=== PATIENT | female | born 1950 | race Caucasian/White ===

== ENCOUNTER → 2017-07-17 | Outpatient (CLI) | payer OTHER ==
[~2017-07-17] MED LIST: ACARBOSE25 MG PO; ADVAIR 500/501 EA INH; ATORVASTATIN CA20 M1 PO; BREO ELLIPTA 21 EACH IH; CARVEDILOL6.25 MG PO; CITALOPRAM HYDR40 MG PO; COMBIVENT RESPIM4 GM INH; DOXYCYCLINE100 M3 PO; DUONEB 3 MG/3 ML3 M1 INH; HYDROCODONE BIT1 T11 PO; HYDROXYZINE PAM50 MG PO; Meclizine25 MG PO; NAPROSYN500 MG PO; OMEPRAZOLE D/R20 MG PO; OXYGEN NAS; TRAZODONE50 MG PO; VIBRAMYCIN100 MG PO
== END | disposition home or self-care (01) ==
LOC: US 15:58
DX: N85.8 Other specified noninflammatory disorders of uterus (principal)

== ENCOUNTER → 2017-08-23 | Outpatient (CLI) | payer OTHER | LOC: US 10:30 | DX: M48.061 Spinal stenosis, lumbar region without neurogenic claudication (principal); M25.472 Effusion, left ankle; M25.471 Effusion, right ankle; M79.89 Other specified soft tissue disorders; G57.73 Causalgia of bilateral lower limbs; I73.9 Peripheral vascular disease, unspecified; Z98.1 Arthrodesis status ==

== ENCOUNTER → 2017-09-04 | Outpatient (CLI) | payer OTHER, MEDICAID | END | disposition home or self-care (01) | LOC: MAMMO 08-29 08:00 | DX: Z12.31 Encounter for screening mammogram for malignant neoplasm of breast (principal) ==

== ENCOUNTER 2018-08-10 19:18 | Emergency (ER) | payer OTHER, MEDICAID ==
[~2018-08-10] VITALS: Ht 170.1 cm; Wt 68.9 kg
--- NOTE | ~2018-08-10 | EKG ---
[place], [place] ELECTROCARDIOGRAM REPORT NAME: SHERYL GUEVARA UNIT #: [id number] ROOM: DOCTOR: EPIPHANY DRAFT REPORT BIRTHDATE: [birth year] [facility] Test Date: 2018-08-10 Test Time: 19:44:27 Pat Name: SHERYL GUEVARA Department: Room: Gender: F Labor Custodian: Emily Ferrell : 1950 Requested By: NATALEE KNIGHT Order Number: [id number] Reading MD: Allegra Hernandez MD Measurements Intervals [place] Rate: 71 P: 76 TN: 117 QRS: 83 QRSD: 97 T: 36 QT: 391 QTc: 425 Interpretive Statements Sinus rhythm Borderline short TN interval Borderline right axis deviation Minimal ST elevation, anterior leads Electronically Signed On 08-12-2018 14:19:14 PST by Allegra Hernandez MD CM:EKGRPT:ELECTROCARDIOGRAM REPORT [id number] NATALEE KNIGHT MD EPIPHANY DRAFT REPORT NATALEE KNIGHT MD
[~2018-08-10 19:18] MED LIST changes: +MIRALAX17 GM PO
[2018-08-10 19:49] LABS: BASO # 0.1 10*3/uL (0.0-0.1); HEMATOCRIT 44.9 % (37.0-47.0); HEMOGLOBIN 15.1 g/dl (12.0-16.0); LYMPH % 28.5 % (27.0-41.0); MEAN CELL VOLUME 96.4 fl (81.0-99.0); MEAN CORPUSCULAR HGB 32.4 pg (27.0-31.0); MEAN CORPUSCULAR HGB CONC 33.6 g/dl (33.0-37.0); MEAN PLATELET VOLUME 8.6 fl (9.6-12.3); MONO # 0.7 10*3/uL (0.1-1.0); MONO % 9.8 % (3.0-9.0); NEUT # 3.2 10*3/uL (2.3-7.9); NEUT % 46.6 % (47.0-73.0); PLATELET COUNT AUTOMATED 291 10*3/uL (130-400); RED BLOOD COUNT 4.66 10*6/uL (4.10-5.10); WHITE BLOOD COUNT 6.9 10*3/uL (4.8-10.8)
[2018-08-10 19:59] LABS: ACT PARTIAL THROMBO TIME 25.7 SECONDS (20.8-31.5); INTERNATIONAL NORM RATIO 0.9 (2.0-3.5)
[2018-08-10 20:07] LABS: ALBUMIN 3.2 gm/dl (3.1-4.5); ALKALINE PHOSPHATASE 60 U/L (45-117); BUN 20 mg/dl (7-24); CHLORIDE 102 mmol/L (98-107); CREATININE 0.81 mg/dL (0.55-1.02); POTASSIUM 4.1 mmol/L (3.5-5.1); SGOT/AST 18 IU/L (3-35); SGPT/ALT 19 U/L (12-78); SODIUM 139 mmol/L (136-145); TOTAL PROTEIN 7.1 gm/dL (6.4-8.2); TROPONIN I 0.019 ng/ml (<0.045)
[2018-08-10] MEDS ORDERED: PREDNISONE10 MG PO (20:15)
[2018-08-10] MEDS ORDERED: LEVOFLOXACIN500 MG PO (20:15)
[2018-08-10] MEDS ORDERED: ASPIRIN CHEWABL81 MG PO (20:22)
[2018-08-10] MEDS ORDERED: DULOXETINE HCL60 MG PO (20:23)
[2018-08-10] MEDS ORDERED: SPIRIVA RESPIMAT4 GM INH (20:23)
[2018-08-10 20:58] VITALS: BP 141/57
== END 2018-08-10 21:13 | disposition left against medical advice (07) ==
LOC: ED 19:18
PROVIDERS: Emergency Medicine Emergency Medical Services
DX: J44.1 Chronic obstructive pulmonary disease with (acute) exacerbation (principal); I10 Essential (primary) hypertension; F17.200 Nicotine dependence, unspecified, uncomplicated; Z88.0 Allergy status to penicillin; Z88.1 Allergy status to other antibiotic agents; Z88.2 Allergy status to sulfonamides; Z88.8 Allergy status to other drugs, medicaments and biological substances; Z91.041 Radiographic dye allergy status; Z79.899 Other long term (current) drug therapy

== ENCOUNTER 2018-09-17 | Inpatient (IN) | payer OTHER ==
[~2018-09-17] MED LIST changes: +ASPIRIN CHEWABL81 MG PO; +DULOXETINE HCL60 MG PO; +LEVOFLOXACIN500 MG PO; +PREDNISONE10 MG PO; +SPIRIVA RESPIMAT4 GM INH
--- NOTE | ~2018-09-17 | EKG ---
[place], [place] ELECTROCARDIOGRAM REPORT NAME: SHERYL GUEVARA UNIT #: [id number] ROOM: 406 DOCTOR: JORGE LUIS DRAFT REPORT BIRTHDATE: [birth year] [facility] Test Date: 2018-09-17 Test Time: 17:30:30 Pat Name: SHERYL GUEVARA Department: Room: 406 Gender: F Real Estate Listing Consultant: SABRINA : 1950 Requested By: NANY PICHARDO Order Number: [id number] Reading MD: Nito Duran MD Measurements Intervals [place] Rate: 63 P: 78 MI: 123 QRS: 82 QRSD: 90 T: 13 QT: 409 QTc: 419 Interpretive Statements Sinus rhythm Borderline right axis deviation Compared to ECG 08/10/2018 19:44:27 ST (T wave) deviation no longer present Electronically Signed On 09-19-2018 8:26:57 PST by Nito Duran MD CM:EKGRPT:ELECTROCARDIOGRAM REPORT [id number] NANY KEANE DRAFT REPORT NANY PICHARDO DO
--- NOTE | ~2018-09-17 | EKG ---
[place], [place] ELECTROCARDIOGRAM REPORT NAME: SHERYL GUEVARA UNIT #: [id number] ROOM: 406 DOCTOR: JORGE LUIS DRAFT REPORT BIRTHDATE: [birth year] [facility] Test Date: 2018-09-17 Test Time: 20:24:14 Pat Name: SHERYL GUEVARA Department: Room: 406 Gender: F Antisqueak Worker: SABRINA : 1950 Requested By: NANY PICHARDO Order Number: [id number] Reading MD: Nito Duran MD Measurements Intervals [place] Rate: 79 P: 80 AK: 114 QRS: 82 QRSD: 93 T: -70 QT: 384 QTc: 441 Interpretive Statements Sinus arrhythmia Multiple premature complexes, vent \T\ supraven Borderline short [place] interval Borderline right axis deviation Borderline repolarization abnormality Compared to ECG 08/10/2018 19:44:27 Sinus rhythm no longer present ST (T wave) deviation no longer present Electronically Signed On 09-19-2018 8:27:17 PST by Nito Duran MD CM:EKGRPT:ELECTROCARDIOGRAM REPORT 23 NANY KEANE DRAFT REPORT NANY PICHARDO DO
--- NOTE | ~2018-09-17 | EKG ---
[place], [place] ELECTROCARDIOGRAM REPORT NAME: SHERYL GUEVARA UNIT #: [id number] ROOM: 406 DOCTOR: JORGE LUIS DRAFT REPORT BIRTHDATE: [birth year] [facility] Test Date: 2018-09-17 Test Time: 14:28:20 Pat Name: SHERYL GUEVARA Department: Room: 406 Gender: F Office Administration Instructor: SABRINA : 1950 Requested By: NANY PICHARDO Order Number: [id number] Reading MD: Nito Duran MD Measurements Intervals [place] Rate: 67 P: 77 MT: 113 QRS: 81 QRSD: 91 T: 8 QT: 389 QTc: 411 Interpretive Statements Sinus rhythm Borderline short MT interval Borderline right axis deviation Minimal ST depression, inferior leads Compared to ECG 08/10/2018 19:44:27 No significant changes Electronically Signed On 09-19-2018 8:26:38 PST by Nito Duran MD CM:EKGRPT:ELECTROCARDIOGRAM REPORT [id number] NANY KEANE DRAFT REPORT NANY PICHARDO DO
[2018-09-17 14:27] VITALS: BP 164/77
[2018-09-17 14:44] LABS: BASO # 0.1 10*3/uL (0.0-0.1); BASO % 0.5 % (0.0-1.0); EOS # 0.2 10*3/uL (0.0-0.4); EOS % 2.3 % (1.0-4.0); HEMATOCRIT 47.7 % (37.0-47.0); HEMOGLOBIN 16.5 g/dl (12.0-16.0); LYMPH # 2.2 10*3/uL (1.3-4.4); LYMPH % 23.4 % (27.0-41.0); MEAN CORPUSCULAR HGB 33.2 pg (27.0-31.0); MEAN CORPUSCULAR HGB CONC 34.6 g/dl (33.0-37.0); MEAN PLATELET VOLUME 8.8 fl (9.6-12.3); MONO % 10.2 % (3.0-9.0); NEUT # 5.9 10*3/uL (2.3-7.9); NEUT % 63.4 % (47.0-73.0); PLATELET COUNT AUTOMATED 370 10*3/uL (130-400); RED BLOOD COUNT 4.97 10*6/uL (4.10-5.10); RED CELL DISTRI WIDTH 13.4 % (0-14.5); WHITE BLOOD COUNT 9.3 10*3/uL (4.8-10.8)
[2018-09-17 14:54] LABS: ACT PARTIAL THROMBO TIME 23.5 SECONDS (20.8-31.5); INTERNATIONAL NORM RATIO 0.9 (2.0-3.5)
[2018-09-17 15:00] LABS: ALBUMIN 3.6 gm/dl (3.1-4.5); ALKALINE PHOSPHATASE 64 U/L (45-117); BUN 17 mg/dl (7-24); CHLORIDE 100 mmol/L (98-107); SGOT/AST 15 IU/L (3-35); SGPT/ALT 22 U/L (12-78); SODIUM 138 mmol/L (136-145); TOTAL PROTEIN 7.6 gm/dL (6.4-8.2)
[2018-09-17 15:01] LABS: TROPONIN I 0.019 ng/ml (<0.045)
[2018-09-17 15:20] VITALS: BP 143/70
[2018-09-17 17:35] VITALS: BP 150/77
[2018-09-17 17:40] VITALS: BP 142/66
--- NOTE | 2018-09-17 17:40 | NUR ---
A 68, admitted to 4E, under the services of KAI Mcdonnell DO with a diagnosis of CHEST PAIN R/O MO. Chief complaint is CHEST PAIN. Patient arrived via ambulatory from ER. Monitor applied. Initial assessment completed. Vital signs taken and recorded. KAI MCDONNELL DO notified of admission to the unit. Orders received. See assessment for past medical history, medications and allergies. Patient and/or family oriented to unit. [facility] visitation policy reviewed. Clothing/patient valuable form completed. SHAMAR MARTINEZ
--- NOTE | 2018-09-17 18:20 | NUR ---
MED REC UP TO DATE PER CLAIM HISTORY AND PATIENT. CALLED TO DR SPENCE.
[2018-09-17 20:00] VITALS: BP 127/52
[2018-09-17] MEDS ORDERED: DULOXETINE HCL20 MG PO (23:54)
[2018-09-17] MEDS ORDERED: PROVENTIL HFA6.7 GM INH (23:55)
[2018-09-17] MEDS ORDERED: ACARBOSE25 MG PO (23:58)
[2018-09-18] VITALS: BP 119/44
[2018-09-18] MEDS ORDERED: Ipratropium Brom3 ML INH
[2018-09-18] MEDS ORDERED: NITROSTAT0.3 M1 SL
[2018-09-18] MEDS ORDERED: PRAVASTATIN SOD40 MG PO (00:01)
[2018-09-18] MEDS ORDERED: VENTOLIN 02.5 MG/3 M INH (00:02)
--- NOTE | 2018-09-18 00:09 | NUR ---
PATIENT REQUESTING HER HOME NIGHT TIME MEDS. REQUESTING CYMBALTA, COREG, ASPIRIN, TRAZODONE, & PRAVASTATIN. HOME MED REC UPDATED PER PATIENT RECALL AND MEDICATION CLAIMS HISTORY. NOTIFIED.
[2018-09-18 07:47] LABS: BASO % 0.1 % (0.0-1.0); EOS % 0.1 % (1.0-4.0); HEMATOCRIT 43.8 % (37.0-47.0); HEMOGLOBIN 14.8 g/dl (12.0-16.0); LYMPH % 12.5 % (27.0-41.0); MEAN CELL VOLUME 96.5 fl (81.0-99.0); MEAN CORPUSCULAR HGB 32.6 pg (27.0-31.0); MEAN CORPUSCULAR HGB CONC 33.8 g/dl (33.0-37.0); MEAN PLATELET VOLUME 9.1 fl (9.6-12.3); MONO # 0.4 10*3/uL (0.1-1.0); MONO % 5.4 % (3.0-9.0); NEUT # 6.3 10*3/uL (2.3-7.9); NEUT % 81.5 % (47.0-73.0); PLATELET COUNT AUTOMATED 313 10*3/uL (130-400); RED BLOOD COUNT 4.54 10*6/uL (4.10-5.10); RED CELL DISTRI WIDTH 13.2 % (0-14.5); WHITE BLOOD COUNT 7.8 10*3/uL (4.8-10.8)
[2018-09-18 08:00] VITALS: BP 118/68
[2018-09-18 08:08] LABS: ALBUMIN 2.8 gm/dl (3.1-4.5); ALKALINE PHOSPHATASE 52 U/L (45-117); BUN 18 mg/dl (7-24); CHLORIDE 101 mmol/L (98-107); CHOLESTEROL 200 mg/dL (<200); CREATININE 0.73 mg/dL (0.55-1.02); PHOSPHOROUS 3.5 mg/dL (2.5-4.9); POTASSIUM 4.1 mmol/L (3.5-5.1); SGOT/AST 12 IU/L (3-35); SGPT/ALT 19 U/L (12-78); SODIUM 137 mmol/L (136-145); TOTAL PROTEIN 6.5 gm/dL (6.4-8.2); TRIGLYCERIDES 62 mg/dl (<150); VLDL CHOLESTEROL 12 mg/dL (6-40)
[2018-09-18 08:12] LABS: HDL CHOLESTEROL 78 mg/dl (40-60); LDL CHOLESTEROL 110 mg/dL (9-159); THYROID STIM HORMONE (HS) 0.547 uIU/ml (0.358-4.75)
[2018-09-18 09:21] LABS: VITAMIN D, 25-HYDROXY 19.8 ng/mL (30-100)
--- NOTE | 2018-09-18 09:24 | NUR ---
DR VILLALPANDO INFORMED THAT PT IS REQUESTING HOME MEDS TO BE RESUMED.
--- NOTE | 2018-09-18 11:50 | NUR ---
PT REQUESTING NICOTINE PATCH, DR VILLALPANDO INFORMED.
[2018-09-18 12:00] VITALS: BP 127/69
--- NOTE | 2018-09-18 12:11 | NUR ---
Register In Chancery in to talk to patient. Patient states lives at home with . There are few steps in the home. Physician: jeanne garcia [facility] Home health services: none Patient's level of ADLs: MINIMAL ASSIST Patient has working utilities: all working DME: has home oxygen she wears at night from [facility] Follow-up physician's appointment after d/c: will be made by hospitalist nurse director upon discharge Does patient want to access PORTAL?: no Discharge plan discussed with patient, patient lives at home with her , she states she gets around but is slow, she is independent in adls. patient states she has home oxygen that she wears at and has one portable tank in case the electric would go out, patient states she feels like she needs oxygen 24 hours a day and is not ablel to go out due to not being able to breathe, educated patient that case management will let hospitalist nurse director know that patient may need checked for home oxygen 24 hours a day. case management will follow.. CASSANDRA LONGORIA
[2018-09-18 16:00] VITALS: BP 122/60
--- NOTE | 2018-09-18 18:00 | NUR ---
PT RESTING IN BED, NO DISTRESS NOTED. O2 INTACT AT 2L NC AT THIS TIME, FAMILY AT BEDSIDE. CALL LIGHT WITHIN REACH.
[2018-09-18 20:00] VITALS: BP 128/69
--- NOTE | 2018-09-18 23:30 | NUR ---
ASSUMED CARE OF PT AT THIS TIME. PT IS AWAKE IN BED. DENIES ANY PAIN, SOB, OR GENERALIZED DISCOMFORT. WILL MONITOR. CALL LIGHT LEFT IN REACH.
[2018-09-19] VITALS: BP 134/57
[2018-09-19 07:00] LABS: BASO % 0.1 % (0.0-1.0); EOS % 0.1 % (1.0-4.0); HEMATOCRIT 42.8 % (37.0-47.0); HEMOGLOBIN 14.2 g/dl (12.0-16.0); LYMPH # 1.2 10*3/uL (1.3-4.4); MEAN CELL VOLUME 96.6 fl (81.0-99.0); MEAN CORPUSCULAR HGB 32.1 pg (27.0-31.0); MEAN CORPUSCULAR HGB CONC 33.2 g/dl (33.0-37.0); MEAN PLATELET VOLUME 9.3 fl (9.6-12.3); MONO # 0.7 10*3/uL (0.1-1.0); MONO % 5.7 % (3.0-9.0); NEUT # 9.4 10*3/uL (2.3-7.9); NEUT % 82.7 % (47.0-73.0); PLATELET COUNT AUTOMATED 290 10*3/uL (130-400); RED BLOOD COUNT 4.43 10*6/uL (4.10-5.10); RED CELL DISTRI WIDTH 13.3 % (0-14.5); WHITE BLOOD COUNT 11.3 10*3/uL (4.8-10.8)
[2018-09-19 07:22] LABS: CHLORIDE 103 mmol/L (98-107); SODIUM 138 mmol/L (136-145)
[2018-09-19 07:26] LABS: BUN 20 mg/dl (7-24); CREATININE 0.78 mg/dL (0.55-1.02)
[2018-09-19 08:00] VITALS: BP 130/70
--- NOTE | 2018-09-19 08:41 | NUR ---
PT REQUESTED AND RECEIVED PO DULCOLAX PER PRN ORDER FOR C/O CONSTIPATION. ABD SOFT, NON-DISTENDED. WILL CONTINUE TO MONITOR. CALL LIGHT WITHIN REACH. VSS.
--- NOTE | 2018-09-19 09:00 | NUR ---
case management visits with patient, patient states she will be going home and denies any home needs
[2018-09-19] MEDS ORDERED: MUCINEX ER600 MG PO (09:57)
[2018-09-19] MEDS ORDERED: PREDNISONE10 MG PO (09:57)
[2018-09-19] MEDS ORDERED: LEVAQUIN750 M1 PO (09:57)
--- NOTE | 2018-09-19 11:25 | NUR ---
PT ASSESSED FOR HOME O2 FOLLOWS: BP 137/67 HR 80 SAT 92% AT REST WITH 2L/M NC APPLIED SAT 88% AT REST, RA SAT 92% AT REST, WITH 2L/M NC REAPPLIED SAT 90-91% WITH 2L/M NC APPLIED DURING AMBULATION SAT 93% AT REST WITH 2L/M NC APPLIED DURING RECOVERY. BP 145/62 HR 104 POST AMBULATION. PT TOLERATING WALK WELL. PT WALKED LENGTH OF HALLWAY. PT STATES SHE USED 3L/M HS. [facility]. , RN, AND DASHA NOTIFIED.
[2018-09-19 12:00] VITALS: BP 137/67
--- NOTE | 2018-09-19 13:48 | NUR ---
Discharge instructions reviewed with patient/family. Patient receptive and verbalizes understanding. Follow-up care arranged. Written instructions given to patient/family. MARIVEL SPARKS.
[2019-02-12] MEDS ORDERED: PREDNISONE50 MG PO (12:44)
[2019-02-12] MEDS ORDERED: VIBRAMYCIN100 MG PO (12:44)
[2019-04-19] MEDS ORDERED: PREDNISONE50 MG PO (21:55)
[2019-04-19] MEDS ORDERED: CLARITIN10 MG PO (21:55)
[2019-04-19] MEDS ORDERED: MUCINEX1200 M1 PO (21:55)
[2019-04-19] MEDS ORDERED: DOXYCYCLINE100 M3 PO (21:55)
== END 2018-09-19 13:48 | disposition home or self-care (01) | DRG 190 ==
PROVIDERS: Emergency Medicine; Family Medicine; Student in an Organized Health Care Education/Training Program; ADMIT Internal Medicine
DX: J44.1 Chronic obstructive pulmonary disease with (acute) exacerbation (principal); J18.9 Pneumonia, unspecified organism; I10 Essential (primary) hypertension; E78.00 Pure hypercholesterolemia, unspecified; E11.9 Type 2 diabetes mellitus without complications; E78.5 Hyperlipidemia, unspecified; K21.9 Gastro-esophageal reflux disease without esophagitis; F32.9 Major depressive disorder, single episode, unspecified; F41.1 Generalized anxiety disorder; F43.10 Post-traumatic stress disorder, unspecified; D75.1 Secondary polycythemia; E83.41 Hypermagnesemia; Z72.0 Tobacco use; Z91.041 Radiographic dye allergy status; Z88.0 Allergy status to penicillin; Z88.2 Allergy status to sulfonamides; Z88.1 Allergy status to other antibiotic agents; Z88.8 Allergy status to other drugs, medicaments and biological substances; Z79.899 Other long term (current) drug therapy; Z79.82 Long term (current) use of aspirin; Z90.49 Acquired absence of other specified parts of digestive tract; Z82.5 Family history of asthma and other chronic lower respiratory diseases; Z82.49 Family history of ischemic heart disease and other diseases of the circulatory system; Z83.3 Family history of diabetes mellitus; Z81.1 Family history of alcohol abuse and dependence; Z83.49 Family history of other endocrine, nutritional and metabolic diseases; Z71.6 Tobacco abuse counseling

== ENCOUNTER → 2019-06-09 | Outpatient (CLI) | payer OTHER ==
[~2019-06-09] MED LIST changes: +CLARITIN10 MG PO; +DULOXETINE HCL20 MG PO; +Ipratropium Brom3 ML INH; +LEVAQUIN750 M1 PO; +MUCINEX ER600 MG PO; +MUCINEX1200 M1 PO; +NITROSTAT0.3 M1 SL; +PRAVASTATIN SOD40 MG PO; +PREDNISONE50 MG PO; +PROVENTIL HFA6.7 GM INH; +VENTOLIN 02.5 MG/3 M INH
[2019-06-10 11:02] LABS: ALPHA-1-ANTITRYPSIN, SERUM 127 mg/dL (90-200)
== END | disposition home or self-care (01) ==
LOC: LAB 14:27
PROVIDERS: Internal Medicine Critical Care Medicine
DX: J44.9 Chronic obstructive pulmonary disease, unspecified (principal)

== ENCOUNTER 2019-08-07 08:17 | Inpatient (IN) | payer OTHER ==
[2019-08-07] VITALS (8 sets, daily range): BP systolic 131–157; BP diastolic 58–85
[~2019-08-07] VITALS: Ht 170.1 cm; Wt 75.1 kg
--- NOTE | 2019-08-07 08:36 | NUR ---
PT REPORTS TRIPPING THE OTHER DAY OVER HER OXYGEN CORD, C/O NECK PAIN. NOTIFIED DR LINDSAY.
[2019-08-07 08:41] LABS: BASO % 0.4 % (0.0-1.0); EOS # 0.2 10*3/uL (0.0-0.4); EOS % 2.1 % (1.0-4.0); HEMATOCRIT 50.3 % (37.0-47.0); HEMOGLOBIN 16.2 g/dl (12.0-16.0); LYMPH % 19.8 % (27.0-41.0); MEAN CELL VOLUME 98.1 fl (81.0-99.0); MEAN CORPUSCULAR HGB 31.6 pg (27.0-31.0); MEAN CORPUSCULAR HGB CONC 32.2 g/dl (33.0-37.0); MEAN PLATELET VOLUME 8.8 fl (9.6-12.3); MONO % 9.6 % (3.0-9.0); NEUT # 6.8 10*3/uL (2.3-7.9); NEUT % 67.6 % (47.0-73.0); PLATELET COUNT AUTOMATED 319 10*3/uL (130-400); RED BLOOD COUNT 5.13 10*6/uL (4.10-5.10); RED CELL DISTRI WIDTH 12.9 % (0-14.5)
[2019-08-07 08:48] LABS: ACT PARTIAL THROMBO TIME 27.9 SECONDS (20.0-32.1); INTERNATIONAL NORM RATIO 0.9 (2.0-3.5)
[2019-08-07 08:53] LABS: ALBUMIN 3.5 gm/dl (3.1-4.5); ALKALINE PHOSPHATASE 59 U/L (45-117); BUN 18 mg/dl (7-24); CHLORIDE 96 mmol/L (98-107); CREATININE 0.81 mg/dL (0.55-1.02); POTASSIUM 4.5 mmol/L (3.5-5.1); SGOT/AST 13 IU/L (3-35); SGPT/ALT 22 U/L (12-78); SODIUM 134 mmol/L (136-145); TOTAL PROTEIN 7.5 gm/dL (6.4-8.2)
[2019-08-07 08:56] LABS: TROPONIN I < 0.015 ng/ml (<0.045)
--- NOTE | 2019-08-07 11:00 | NUR ---
pt to be admitted, resting quietly with family at the bedside. lungs remians slightly wheezie, pox 97% 2l nc, moist non productive cough noted. hr 69.
--- NOTE | 2019-08-07 11:30 | NUR ---
Time: 1129 A 69 year old FEMALE admitted to under services of LEANA FELIX DO. Pt. arrived via ambulance from ER. Chief complaint: CHEST PAIN. SHORTNESS OF BREATH. HISSOM,FRAN
--- NOTE | 2019-08-07 12:00 | NUR ---
NOTIFIED DR GASPAR THAT PATIENT WAS ON THE FLOOR, ASSESSMENT COMPLETE AND MEDS UP TO DATE. NO NEW ORDERS AT THIS TIME.
--- NOTE | 2019-08-07 12:41 | NUR ---
STARTED RUNNING PTS LEVAQUIN. PT STARTED COMPLAINING THAT HER ARM WAS BURNING AND ITCHING. IMMEDIATELY TOOK DOWN ANTIBIOTIC AND FLUSHED WITH NORMAL SALINE. CONTACTED DR GASPAR. STATED HE WOULD SWITCH HER ANTIBIOTIC AND ORDER BENEDRYL. WILL CONTINUE TO MONITOR PT AND ADD TO ALLERGY LIST.
--- NOTE | 2019-08-07 13:59 | NUR ---
PT WAS MEDICATED WITH BENEDRYL FOR ITCHING. CURRENTLY RESTING IN BED.VITALS STABLE. DENIES ANY FURTHER ITCHING OR SIGNS AND SYMPTOMS. CALL LIGHT WITHIN REACH.
--- NOTE | 2019-08-07 14:50 | NUR ---
PAGED INTO PATIENTS ROOM. PT SITTING UP ON THE EDGE OF THE BED STATING SHE FELT LIKE SHE COULD NOT BREATHE. OXYGEN INTACT AT 2L VIA NASAL CANNULA. SPO2 99%. PT REQUESTING A BREATHING TREATMENT AT THIS TIME. RESPIRATORY NOTIFIED. WILL MONITOR. CALL LIGHT WITHIN REACH.
--- NOTE | 2019-08-07 15:30 | NUR ---
WENT TO REASSESS PT AFTER BREATHING TREATMENT. STATED IT IS "A LITTLE BETTER". 2L OXYGEN VIA NASAL CANNULA INTACT. SPO2 99%.
--- NOTE | 2019-08-07 15:52 | NUR ---
PTS DAUGHTER VISITING AT THE BEDSIDE. UPDATED ON PLAN OF CARE.
--- NOTE | 2019-08-07 16:53 | NUR ---
PATIENT RESTING IN RECLINER WITH FAMILY AT BEDSIDE. NO C/O OF DISCOMFORT OR SHORTNESS OF BREATH. 2L OXYGEN VIA NASAL CANNULA INTACT. CALL LIGHT WITHIN REACH.
--- NOTE | 2019-08-07 17:34 | NUR ---
PT REQUESTING NICOTINE PATCH. SPOKE WITH DR GASPAR. STATED TO AHEAD AND ORDER THE 14MG PATCH.
--- NOTE | 2019-08-07 18:02 | NUR ---
SPOKE WITH DR HARRISON REGARDING NEW CONSULT. NO NEW ORDERS AT THIS TIME.
[2019-08-08] VITALS: BP 166/75
--- NOTE | 2019-08-08 03:47 | NUR ---
PATIENT RESTING IN BED WITH NO S/S OF DISTRESS. BED IN LOWEST POSITION, CALL LIGHT IN REACH
[2019-08-08 06:33] LABS: BASO % 0.2 % (0.0-1.0); EOS % 0.1 % (1.0-4.0); HEMATOCRIT 46.4 % (37.0-47.0); LYMPH # 0.9 10*3/uL (1.3-4.4); LYMPH % 10.6 % (27.0-41.0); MEAN CELL VOLUME 98.5 fl (81.0-99.0); MEAN CORPUSCULAR HGB 31.8 pg (27.0-31.0); MEAN CORPUSCULAR HGB CONC 32.3 g/dl (33.0-37.0); MEAN PLATELET VOLUME 9.1 fl (9.6-12.3); MONO # 0.3 10*3/uL (0.1-1.0); NEUT # 7.6 10*3/uL (2.3-7.9); NEUT % 85.5 % (47.0-73.0); PLATELET COUNT AUTOMATED 314 10*3/uL (130-400); RED BLOOD COUNT 4.71 10*6/uL (4.10-5.10); RED CELL DISTRI WIDTH 12.7 % (0-14.5); WHITE BLOOD COUNT 8.9 10*3/uL (4.8-10.8)
[2019-08-08 06:46] LABS: BUN 17 mg/dl (7-24); CHLORIDE 97 mmol/L (98-107); CHOLESTEROL 266 mg/dL (<200); CREATININE 0.75 mg/dL (0.55-1.02); HDL CHOLESTEROL 91 mg/dl (40-60); LDL CHOLESTEROL 167 mg/dL (9-159); PHOSPHOROUS 4.6 mg/dL (2.5-4.9); POTASSIUM 4.1 mmol/L (3.5-5.1); SODIUM 136 mmol/L (136-145); TRIGLYCERIDES 41 mg/dl (<150); VLDL CHOLESTEROL 8 mg/dL (6-40)
[2019-08-08 08:00] VITALS: BP 146/73
--- NOTE | 2019-08-08 08:00 | NUR ---
VS COMPLETED AND DOCUMENTED. PT STATES SHE IS VERY TIRED. DENIES ANY CHEST PAIN. PT ON 3L/NC 100% SPO2. PT RESTING IN BED. CALL LIGHT IN REACH. Aaron DAILEY
--- NOTE | 2019-08-08 08:55 | NUR ---
Shift chart check completed.
--- NOTE | 2019-08-08 09:00 | NUR ---
Technical Assoc in to talk to patient. Patient states lives at home with . There are few steps in the home. Physician: owen choi [facility] Home health services: none Patient's level of ADLs: INDEPENDENT Patient has working utilities: all working DME: home oxygen, portable tanks, nebulzier from [employer] Follow-up physician's appointment after d/c: will be made by hospitalist nurse director upon discharge Does patient want to access PORTAL?: no Discharge plan discussed with patient,she states she lives at home with her , her daughter lives next door, she states she is independent in adls and ambulation she has home oxygen portable tanks and nebulzier from [employer], she stated she would be returning home when medically stable, discussed with patient VNA and she declines any services at this time, case management will follow for any home needs. CASSANDRA LONGORIA
--- NOTE | 2019-08-08 10:00 | NUR ---
PT SITTING UP ON SIDE OF BED IN LOW POSTION. HAS NO COMPLAINTS OR CONCERNS AT THIS TIME. NO SIGNS OR SYMPTOMS OF DISTRESS AT THIS TIME. CALL LIGHT IN REACH OLGA DAILEY
[2019-08-08 12:00] VITALS: BP 138/76
--- NOTE | 2019-08-08 12:00 | NUR ---
PT IN ROOM SITTING UP IN CHAIR. FAMILY IN ROOM VISTING. PT HAS NO COMPLAINTS OR CONCERNS AT THIS TIME. OLGA VERDUZCOCC
--- NOTE | 2019-08-08 13:15 | NUR ---
IV SITE DC'D DUE TO PT C/O PAIN AT SITE WITH SLIGHT LEAKING. DSD APPLIED. #24 INSERTED INTO RIGHT ARM WIHTOUT DIFFICULTY. GOOD BLOOD RETURN AND FLUSHES WITH EASE. PT TOLERATED WELL.
--- NOTE | 2019-08-08 13:30 | NUR ---
PT IN ROOM SITTING IN BED. PT JUST BEGAN TO EAT LUNCH.PT DENIES ANY CHEST PAIN OR DISCOMFORT AT THIS TIME. BED SIDE TABLE AND CALL LIGHT IN REACH. BED AT LOWEST POSITION. OLGA DAILEY
[2019-08-08 15:03] LABS: VITAMIN D, 25-HYDROXY 32.4 ng/mL (30-100)
[2019-08-08 16:00] VITALS: BP 156/75
--- NOTE | 2019-08-08 16:28 | NUR ---
PT SLEEPING. NO S/S OF DISTRESS NOTED. 2L OXYGEN NC INTACT. CALL LIGHT WITHIN REACH.
--- NOTE | 2019-08-08 17:57 | NUR ---
PT AND FAMILY UPDATED ON PLAN OF CARE
--- NOTE | 2019-08-08 19:41 | NUR ---
WHILE IN BEDSIDE REPORT PATIENT IS REQUESTING FLONASE FOR CONGESTION AND DRAINAGE, CALL PLACED TO DR. LAWSON, SEE NEW ORDERS.
[2019-08-08 20:00] VITALS: BP 105/70
[2019-08-09] VITALS: BP 138/69
[2019-08-09 06:37] LABS: BASO % 0.1 % (0.0-1.0); HEMATOCRIT 45.2 % (37.0-47.0); HEMOGLOBIN 14.8 g/dl (12.0-16.0); LYMPH # 0.9 10*3/uL (1.3-4.4); LYMPH % 8.6 % (27.0-41.0); MEAN CELL VOLUME 98.9 fl (81.0-99.0); MEAN CORPUSCULAR HGB 32.4 pg (27.0-31.0); MEAN CORPUSCULAR HGB CONC 32.7 g/dl (33.0-37.0); MEAN PLATELET VOLUME 9.4 fl (9.6-12.3); MONO # 0.5 10*3/uL (0.1-1.0); MONO % 4.6 % (3.0-9.0); NEUT # 9.3 10*3/uL (2.3-7.9); NEUT % 86.1 % (47.0-73.0); PLATELET COUNT AUTOMATED 336 10*3/uL (130-400); RED BLOOD COUNT 4.57 10*6/uL (4.10-5.10); RED CELL DISTRI WIDTH 12.9 % (0-14.5); WHITE BLOOD COUNT 10.8 10*3/uL (4.8-10.8)
[2019-08-09 06:58] LABS: BUN 19 mg/dl (7-24); CHLORIDE 99 mmol/L (98-107); CREATININE 0.78 mg/dL (0.55-1.02); POTASSIUM 4.3 mmol/L (3.5-5.1); SODIUM 137 mmol/L (136-145)
[2019-08-09 08:00] VITALS: BP 168/89
--- NOTE | 2019-08-09 11:12 | NUR ---
MEDICATED WITH IV ZOFRAN ORDERED PER PT REQUEST FOR C/O NAUSEA.
[2019-08-09] MEDS ORDERED: DULOXETINE HCL60 MG PO (11:17)
[2019-08-09 11:19] VITALS: BP 120/70
[2019-08-09 12:00] VITALS: BP 114/94
--- NOTE | 2019-08-09 12:07 | NUR ---
MEDICATION EFFECTIVE FOR NAUSEA.
[2019-08-09 16:00] VITALS: BP 147/90
[2019-08-09 20:00] VITALS: BP 141/66
--- NOTE | 2019-08-09 20:00 | NUR ---
PATIENT IS RESTING IN CHAIR WITH EASY AND REGULAR RESPERS ON 2L O2 VIA NC. ASSESSMENT IS COMPLETE WITH NO C/O OR S/S OF DISTRESS NOTED AT THIS TIME. CALL LIGHT IS WITHIN REACH, WILL CONTINUE TO MONITOR, SEE SHIFT ASSESSMENT.
[2019-08-10] VITALS: BP 151/88
[2019-08-10 06:34] LABS: BASO % 0.1 % (0.0-1.0); HEMATOCRIT 45.1 % (37.0-47.0); HEMOGLOBIN 14.6 g/dl (12.0-16.0); MEAN CELL VOLUME 99.6 fl (81.0-99.0); MEAN CORPUSCULAR HGB 32.2 pg (27.0-31.0); MEAN CORPUSCULAR HGB CONC 32.4 g/dl (33.0-37.0); MEAN PLATELET VOLUME 9.3 fl (9.6-12.3); MONO # 0.4 10*3/uL (0.1-1.0); MONO % 3.3 % (3.0-9.0); NEUT # 10.6 10*3/uL (2.3-7.9); NEUT % 88.1 % (47.0-73.0); PLATELET COUNT AUTOMATED 317 10*3/uL (130-400); RED BLOOD COUNT 4.53 10*6/uL (4.10-5.10); RED CELL DISTRI WIDTH 12.9 % (0-14.5)
[2019-08-10 06:54] LABS: BUN 19 mg/dl (7-24); CHLORIDE 99 mmol/L (98-107); CREATININE 0.76 mg/dL (0.55-1.02); POTASSIUM 4.3 mmol/L (3.5-5.1); SODIUM 136 mmol/L (136-145)
[2019-08-10 08:00] VITALS: BP 171/94
--- NOTE | 2019-08-10 08:35 | NUR ---
MEDICATED WITH PO IBUPROFEN ORDERED PER PT REQUEST FOR C/O BACK PAIN RATED 8/10.
--- NOTE | 2019-08-10 10:00 | NUR ---
Medication somewhat effective for pain.
--- NOTE | 2019-08-10 11:43 | NUR ---
Patient resting quietly with no c/o discomfort. Respirations easy and regular. Vital signs stable. No overt distress. ALANIS GUEVARA
[2019-08-10 12:00] VITALS: BP 154/87
[2019-08-10 16:00] VITALS: BP 160/68
--- NOTE | 2019-08-10 19:00 | NUR ---
ASSUMED CARE FOR THIS PT AT THIS TIME. PT SITTING IN CHAIR IN ROOM WATCHING TV. C/O CONSTIPATION. WANTING DULCOLAX SUPPOSITORY LATER. BS X4 NORMO, ABD SOFT/NT/ND. CALL LIGHT IN REACH.
[2019-08-10 20:00] VITALS: BP 145/64
--- NOTE | 2019-08-10 20:26 | NUR ---
pt medicated w/dulcolax suppository for c/o constipation and no bm x5 days. call light in reach.
[2019-08-11] VITALS: BP 134/75; BP 140/70
--- NOTE | 2019-08-11 02:54 | NUR ---
24 HR chart check completed.
[2019-08-11 07:30] VITALS: BP 130/80
--- NOTE | 2019-08-11 07:30 | NUR ---
ASSESSMENT COMPLETED AND DOCUMENTED. PT SITTING UP ON SIDE OF BED VISITING WITH . O2 IN PLACE. APPEARS DYSPNEIC WITH MINIMAL EXERTION AND OCCASIONALLY AT REST.
--- NOTE | 2019-08-11 07:30 | NUR ---
VITAL SIGNS COMPLETED AND DOCUMENTED, PATIENT LAYING IN BED COMFORTABLY CAMILO MOORE LOBO.RCC
--- NOTE | 2019-08-11 07:40 | NUR ---
INITIAL ASSESSMENT COMPLETED.PT CARE HANDED OVER TO [facility] INSTRUCTORBRANDON RN. AND STUDENT NURSE.
--- NOTE | 2019-08-11 09:00 | NUR ---
case management visits with patient present, she states she will be discharged to home today, discussed with her VNA and she declines any home needs at thist time, was in agreement
[2019-08-11] MEDS ORDERED: DOXYCYCLINE100 M3 PO (09:26)
[2019-08-11] MEDS ORDERED: PREDNISONE10 MG PO (09:27)
--- NOTE | 2019-08-11 10:03 | NUR ---
IV DC'D TO [facility]. CATH INTACT. SITE ASYMPTOMATIC. PT TOLERATED WELL. DISCHARGE INSTRUCTIONS GIVEN TO PATIENT AND SPOUSE. VERBALIZED UNDERSTANDING. NO QUESTIONS AT THIS TIME.
--- NOTE | 2019-08-11 10:28 | NUR ---
Discharge instructions reviewed with patient/family. Patient receptive and verbalizes understanding. Follow-up care arranged. Written instructions given to patient/family. ISAIAS KELLER
== END 2019-08-11 10:29 | disposition home or self-care (01) | DRG 202 ==
LOC: ED 08:17 → EDHOLD 11:16 → 4E 11:16
PROVIDERS: Emergency Medicine; Hospitalist; Internal Medicine; ADMIT Internal Medicine
DX: J45.51 Severe persistent asthma with (acute) exacerbation (principal); J44.0 Chronic obstructive pulmonary disease with (acute) lower respiratory infection; E87.1 Hypo-osmolality and hyponatremia; I24.9 Acute ischemic heart disease, unspecified; J96.11 Chronic respiratory failure with hypoxia; J44.1 Chronic obstructive pulmonary disease with (acute) exacerbation; E78.5 Hyperlipidemia, unspecified; M94.0 Chondrocostal junction syndrome [Tietze]; I10 Essential (primary) hypertension; K21.9 Gastro-esophageal reflux disease without esophagitis; D75.1 Secondary polycythemia; J20.9 Acute bronchitis, unspecified; F34.1 Dysthymic disorder; I25.10 Atherosclerotic heart disease of native coronary artery without angina pectoris; I27.20 Pulmonary hypertension, unspecified; I07.1 Rheumatic tricuspid insufficiency; Z96.1 Presence of intraocular lens; F43.10 Post-traumatic stress disorder, unspecified; E87.8 Other disorders of electrolyte and fluid balance, not elsewhere classified; R73.9 Hyperglycemia, unspecified; F17.210 Nicotine dependence, cigarettes, uncomplicated; Z71.6 Tobacco abuse counseling; Z88.0 Allergy status to penicillin; Z88.2 Allergy status to sulfonamides; Z88.8 Allergy status to other drugs, medicaments and biological substances; Z88.1 Allergy status to other antibiotic agents; Z91.041 Radiographic dye allergy status; Z87.01 Personal history of pneumonia (recurrent); Z90.49 Acquired absence of other specified parts of digestive tract; Z82.5 Family history of asthma and other chronic lower respiratory diseases; Z84.89 Family history of other specified conditions; Z82.49 Family history of ischemic heart disease and other diseases of the circulatory system; Z83.438 Family history of other disorder of lipoprotein metabolism and other lipidemia; Z81.1 Family history of alcohol abuse and dependence; Z83.3 Family history of diabetes mellitus; Z79.899 Other long term (current) drug therapy; Z79.82 Long term (current) use of aspirin; Z98.42 Cataract extraction status, left eye; Z98.41 Cataract extraction status, right eye; F41.9 Anxiety disorder, unspecified

== ENCOUNTER 2019-09-01 14:04 | Inpatient (IN) | payer OTHER ==
[~2019-09-01] VITALS: Ht 170.1 cm; Wt 78.7 kg
[2019-09-01 14:10] VITALS: BP 182/92
[2019-09-01 14:37] LABS: BASO % 0.3 % (0.0-1.0); EOS # 0.1 10*3/uL (0.0-0.4); EOS % 1.2 % (1.0-4.0); HEMATOCRIT 43.2 % (37.0-47.0); HEMOGLOBIN 14.2 g/dl (12.0-16.0); LYMPH % 10.1 % (27.0-41.0); MEAN CELL VOLUME 98.6 fl (81.0-99.0); MEAN CORPUSCULAR HGB 32.4 pg (27.0-31.0); MEAN CORPUSCULAR HGB CONC 32.9 g/dl (33.0-37.0); MEAN PLATELET VOLUME 8.6 fl (9.6-12.3); MONO # 0.7 10*3/uL (0.1-1.0); MONO % 6.8 % (3.0-9.0); NEUT # 8.1 10*3/uL (2.3-7.9); NEUT % 80.9 % (47.0-73.0); PLATELET COUNT AUTOMATED 280 10*3/uL (130-400); RED BLOOD COUNT 4.38 10*6/uL (4.10-5.10); RED CELL DISTRI WIDTH 13.4 % (0-14.5); WHITE BLOOD COUNT 10.1 10*3/uL (4.8-10.8)
[2019-09-01 14:46] LABS: ACT PARTIAL THROMBO TIME 24.8 SECONDS (20.0-32.1); INTERNATIONAL NORM RATIO 0.9 (2.0-3.5)
[2019-09-01 14:50] VITALS: BP 162/86
[2019-09-01 14:52] LABS: ALBUMIN 3.2 gm/dl (3.1-4.5); ALKALINE PHOSPHATASE 46 U/L (45-117); BUN 12 mg/dl (7-24); CHLORIDE 100 mmol/L (98-107); CREATININE 0.64 mg/dL (0.55-1.02); LIPASE 36 U/L (73-393); POTASSIUM 4.1 mmol/L (3.5-5.1); SGOT/AST 18 IU/L (3-35); SGPT/ALT 25 U/L (12-78); SODIUM 136 mmol/L (136-145); TOTAL PROTEIN 6.7 gm/dL (6.4-8.2)
[2019-09-01 15:31] VITALS: BP 173/90
--- NOTE | 2019-09-01 18:03 | NUR ---
CCAA 69, admitted to , under the services of OLIVE Pinto DO with a diagnosis of COPD. Chief complaint is SOB. Patient arrived via bed from ER. Monitor applied. Initial assessment completed. Vital signs taken and recorded. OLIVE PINTO DO notified of admission to the unit. Orders received. See assessment for past medical history, medications and allergies. Patient and/or family oriented to unit. [facility] visitation policy reviewed. Clothing/patient valuable form completed. DASHA NICHOLS
[2019-09-01 18:10] VITALS: BP 170/92
--- NOTE | 2019-09-01 18:22 | NUR ---
DR. HARRISON NOTIFIED OF CONSULT.
--- NOTE | 2019-09-01 19:30 | NUR ---
Patient resting quietly with no c/o discomfort. Respirations easy and regular. Vital signs stable. No overt distress. JUDY SNIDER
[2019-09-01 20:00] VITALS: BP 147/71
[2019-09-02] VITALS: BP 132/72
--- NOTE | 2019-09-02 01:17 | NUR ---
SPOKE WITH DR PHILLIP PT IS REQUESTING NEBULIZER TREATMENT, ORDER PUT IN FOR DUONEB 3ML Q6HRS
--- NOTE | 2019-09-02 05:10 | NUR ---
PT COMPLAINS OF BACK PAIN 5/10 PRN TYLENOL GIVEN
[2019-09-02 06:45] LABS: BASO % 0.1 % (0.0-1.0); HEMATOCRIT 39.9 % (37.0-47.0); HEMOGLOBIN 13.4 g/dl (12.0-16.0); LYMPH # 0.8 10*3/uL (1.3-4.4); LYMPH % 7.2 % (27.0-41.0); MEAN CELL VOLUME 96.6 fl (81.0-99.0); MEAN CORPUSCULAR HGB 32.4 pg (27.0-31.0); MEAN CORPUSCULAR HGB CONC 33.6 g/dl (33.0-37.0); MEAN PLATELET VOLUME 8.7 fl (9.6-12.3); MONO # 0.3 10*3/uL (0.1-1.0); NEUT # 9.3 10*3/uL (2.3-7.9); NEUT % 89.1 % (47.0-73.0); PLATELET COUNT AUTOMATED 257 10*3/uL (130-400); RED BLOOD COUNT 4.13 10*6/uL (4.10-5.10); RED CELL DISTRI WIDTH 13.4 % (0-14.5); WHITE BLOOD COUNT 10.4 10*3/uL (4.8-10.8)
[2019-09-02 06:56] LABS: BUN 12 mg/dl (7-24); CHLORIDE 104 mmol/L (98-107); CREATININE 0.62 mg/dL (0.55-1.02); PHOSPHOROUS 2.8 mg/dL (2.5-4.9); POTASSIUM 4.2 mmol/L (3.5-5.1); SODIUM 138 mmol/L (136-145)
[2019-09-02 06:59] LABS: ACT PARTIAL THROMBO TIME 25.1 SECONDS (20.0-32.1); INTERNATIONAL NORM RATIO 0.9 (2.0-3.5)
[2019-09-02 08:00] VITALS: BP 162/77
[2019-09-02 08:30] VITALS: BP 138/72
--- NOTE | 2019-09-02 09:00 | NUR ---
Animation Camera Operator in to talk to patient. Patient states lives at home with . There are few steps in the home. Physician: owen choi [facility] Home health services: none Patient's level of ADLs: INDEPENDENT Patient has working utilities: all working DME: home oxygen,portable tanks, nebulizer from [facility] Follow-up physician's appointment after d/c: will be made by hospitalist nurse director upon discharge Does patient want to access PORTAL?: no Discharge plan discussed with patient, she states she lives at home with , she is independent in adls and ambulation, she has home oxygen and portable tanks, she states she will return home when medically stable, discussed with her VNA and educated her on the services they offer, she declines any services at this time, she stated she her daughter also lives next door and helps on a daily basis, case management will follow. CASSANDRA LONGORIA
[2019-09-02] MEDS ORDERED: DOXYCYCLINE100 M3 PO (10:52)
[2019-09-02] MEDS ORDERED: PREDNISONE10 MG PO (10:52)
--- NOTE | 2019-09-02 11:30 | NUR ---
Discharge instructions reviewed with patient/family. Patient receptive and verbalizes understanding. Follow-up care arranged. Written instructions given to patient/family. BENTON SUTTON
--- NOTE | 2019-09-02 12:23 | NUR ---
PT WAS INSTRUCTED ON FLUTTER. PT TOLERATED WELL. PT CAN DO ON HER OWN.
== END 2019-09-02 11:30 | disposition home or self-care (01) | DRG 193 ==
LOC: ED 14:04 → 4E 16:26 → EDHOLD 16:26 → 5E 16:45 → 4E 17:39
PROVIDERS: Emergency Medicine; Internal Medicine; ADMIT Internal Medicine
DX: J18.9 Pneumonia, unspecified organism (principal); J96.21 Acute and chronic respiratory failure with hypoxia; J44.0 Chronic obstructive pulmonary disease with (acute) lower respiratory infection; J44.1 Chronic obstructive pulmonary disease with (acute) exacerbation; J96.12 Chronic respiratory failure with hypercapnia; E44.1 Mild protein-calorie malnutrition; K59.00 Constipation, unspecified; I10 Essential (primary) hypertension; E78.5 Hyperlipidemia, unspecified; F41.1 Generalized anxiety disorder; I16.0 Hypertensive urgency; F32.9 Major depressive disorder, single episode, unspecified; F17.210 Nicotine dependence, cigarettes, uncomplicated; F43.10 Post-traumatic stress disorder, unspecified; J45.909 Unspecified asthma, uncomplicated; Z81.1 Family history of alcohol abuse and dependence; Z83.3 Family history of diabetes mellitus; Z82.49 Family history of ischemic heart disease and other diseases of the circulatory system; Z79.899 Other long term (current) drug therapy; Z79.82 Long term (current) use of aspirin; Z88.1 Allergy status to other antibiotic agents; Z88.0 Allergy status to penicillin; Z88.8 Allergy status to other drugs, medicaments and biological substances; Z68.25 Body mass index [BMI] 25.0-25.9, adult; Z99.81 Dependence on supplemental oxygen

== ENCOUNTER 2019-10-22 21:53 | Inpatient (IN) | payer OTHER ==
[~2019-10-22] VITALS: Ht 170.1 cm; Wt 79.9 kg
[~2019-10-22 21:53] MED LIST changes: -AVPAK METFORMI500 MG PO; -DOXYCYCLINE MO100 M1 PO; -FLUTICASONE-SA1 EAC3 NAS; -K-TAB20 MEQ PO; -LASIX20 MG PO; -LASIX40 MG PO; -LISINOPRIL20 MG PO; -LOPRESSOR25 MG PO; -Nystatin 100,000 UNI PO; -OMEPRAZOLE MAGN20 MG PO; -SYMB160 INH; -ZYRTEC10 M3 PO
[2019-10-22 22:11] LABS: BASO % 0.3 % (0.0-1.0); EOS # 0.2 10*3/uL (0.0-0.4); EOS % 1.5 % (1.0-4.0); HEMOGLOBIN 16.1 g/dl (12.0-16.0); LYMPH # 0.9 10*3/uL (1.3-4.4); LYMPH % 7.1 % (27.0-41.0); MEAN CELL VOLUME 98.6 fl (81.0-99.0); MEAN CORPUSCULAR HGB 33.1 pg (27.0-31.0); MEAN CORPUSCULAR HGB CONC 33.5 g/dl (33.0-37.0); MEAN PLATELET VOLUME 8.5 fl (9.6-12.3); MONO # 0.3 10*3/uL (0.1-1.0); MONO % 2.6 % (3.0-9.0); NEUT % 87.5 % (47.0-73.0); PLATELET COUNT AUTOMATED 319 10*3/uL (130-400); RED BLOOD COUNT 4.87 10*6/uL (4.10-5.10); RED CELL DISTRI WIDTH 13.7 % (0-14.5); WHITE BLOOD COUNT 12.6 10*3/uL (4.8-10.8)
[2019-10-22 22:21] LABS: ACT PARTIAL THROMBO TIME 24.6 SECONDS (20.0-32.1); INTERNATIONAL NORM RATIO 0.9 (2.0-3.5)
[2019-10-22 22:30] LABS: ALBUMIN 3.8 gm/dl (3.1-4.5); ALKALINE PHOSPHATASE 48 U/L (45-117); BUN 12 mg/dl (7-24); CHLORIDE 95 mmol/L (98-107); POTASSIUM 4.5 mmol/L (3.5-5.1); SGOT/AST 20 IU/L (3-35); SGPT/ALT 38 U/L (12-78); SODIUM 131 mmol/L (136-145); TOTAL PROTEIN 7.4 gm/dL (6.4-8.2)
[2019-10-22 22:31] LABS: TROPONIN I 0.029 ng/ml (<0.045)
[2019-10-22 22:45] VITALS: BP 138/84
[2019-10-22 23:30] VITALS: BP 150/74
--- NOTE | 2019-10-22 23:30 | NUR ---
A 69, admitted to , under the services of LEANA Felix DO with a diagnosis of COPD EXACERBATION. Chief complaint is SHORTNESS OF BREATH. Patient arrived via bed from ER. Monitor applied. Initial assessment completed. Vital signs taken and recorded. LEANA FELIX DO notified of admission to the unit. Orders received. See assessment for past medical history, medications and allergies. Patient and/or family oriented to unit. [facility] visitation policy reviewed. Clothing/patient valuable form completed. KAILA GRANT
--- NOTE | 2019-10-23 00:23 | NUR ---
NOTIFIED DR. TAPIA OF NEGATIVE ORTHOS. ALSO ASKED IF SHE WOULD LIKE FOR THE PATIENT TO HAVE ALL HER FLUID BOLUSES SHE HAS PITTING EDEMA TO THE LOWER EXTREMITIES. SHE STATED SHE WILL STILL NEED ALL OF THEM SHE IS SEPTIC AND THAT THE PATIENTS LEGS HAVE BEEN LIKE THAT FOR A COUPLE YEARS AND THAT IT ONLY GOES TO MID [place].
--- NOTE | 2019-10-23 00:27 | NUR ---
PATIENT UNSURE OF HOME MEDICATIONS, WOULD PREFER TO GET LIST FROM [facility] IN AM
--- NOTE | 2019-10-23 00:55 | NUR ---
SPOKE WITH DR. MONSIVAIS. PATIENT HAS NO DIET ENTERED. NOTIFIE [facility] THAT PATIENT IS HER WITH COPD EXACERBATION AND THAT SHE TAKES INAHLERS AND BLOOD PRESSURE MEDICATIONS AT HOME. TOLD HIM THAT THE PATIENT IS NOT DIABETIC. AND THAT SHE HAS NO TESTING FOR TOMORROW. DR. MONSIVAIS STATED TO GIVE HER A REGULAR DIET
--- NOTE | 2019-10-23 01:42 | NUR ---
DR. MONSIVAIS NOTIFIED OF PATIENT CRITICAL TROPONIN
--- NOTE | 2019-10-23 02:00 | NUR ---
SPOKE WITH DR. TAPIA ABOUT TROPONIN. SHE STATED SHE WOULD PUT CARDIO ON CONSULT JUST IN CASE. TOLD HER THAT THE PATIENT IS ASYMPTOMATIC JUST SHORTNESS OF BREATH, AND SHE'S TACHY 90'S-100'S WITH EXERTION UP TO 130'S BUT RECOVERS WITH REST. ALSO NOTIFIED HER THAT THE PATIENT DIDN'T KNOW HER HOME MEDICATIONS AND PREFERED TO HAVE US CALL [facility] IN THE AM
[2019-10-23 03:50] LABS: HEMATOCRIT 47.5 % (37.0-47.0); MEAN CELL VOLUME 98.5 fl (81.0-99.0); MEAN CORPUSCULAR HGB 33.2 pg (27.0-31.0); MEAN CORPUSCULAR HGB CONC 33.7 g/dl (33.0-37.0); MEAN PLATELET VOLUME 8.3 fl (9.6-12.3); PLATELET COUNT AUTOMATED 299 10*3/uL (130-400); RED BLOOD COUNT 4.82 10*6/uL (4.10-5.10); RED CELL DISTRI WIDTH 13.5 % (0-14.5); WHITE BLOOD COUNT 9.8 10*3/uL (4.8-10.8)
[2019-10-23 04:09] LABS: BUN 11 mg/dl (7-24); CHLORIDE 101 mmol/L (98-107); POTASSIUM 4.2 mmol/L (3.5-5.1); SODIUM 134 mmol/L (136-145)
[2019-10-23 04:14] LABS: CHOLESTEROL 219 mg/dL (<200); FREE T4 1.06 ng/dl (0.76-1.46); HDL CHOLESTEROL 111 mg/dl (40-60); LDL CHOLESTEROL 95 mg/dL (9-159); PHOSPHOROUS 3.6 mg/dL (2.5-4.9); TRIGLYCERIDES 67 mg/dl (<150); VLDL CHOLESTEROL 13 mg/dL (6-40)
[2019-10-23 04:20] LABS: THYROID STIM HORMONE (HS) 0.519 uIU/ml (0.358-4.75)
--- NOTE | 2019-10-23 04:21 | NUR ---
NOTIFIED DR. MONSIVAIS OF PATIENTS TROPONIN LEVEL
[2019-10-23 04:23] LABS: ATYPICAL LYMPHS 2 % (0-0); TOTAL CELLS COUNTED 100 #CELLS
[2019-10-23 04:24] LABS: PLATELET SUFFICIENCY NORMAL (NORMAL)
[2019-10-23] MEDS ORDERED: LISINOPRIL20 MG PO (04:33)
--- NOTE | 2019-10-23 06:52 | NUR ---
DR. HARRISON NOTIFIED OF CONSULT
--- NOTE | 2019-10-23 06:56 | NUR ---
PAGED [facility] AT THIS TIME
[2019-10-23 07:40] VITALS: BP 170/94
--- NOTE | 2019-10-23 07:43 | NUR ---
PATIENT UP TO BATHROOM VIA WALKER. 02 IN USE VIA 2LNC. SOB WITH EXERTION. LUNGS DIMINISHED WITH WHEEZES/RHONCHI. HARSH NON-PRODUCTIVE COUGH DURING ASSESSMENT. WILL CONTINUE TO MONITOR. CALL LIGHT WITHIN REACH.
--- NOTE | 2019-10-23 07:45 | NUR ---
THIS NURSE UNABLE TO REACH PAT[facility]S [facility] AT THIS TIME TO VERIFY MEDS. PHARMACY OPENS AT 9AM.
[2019-10-23 07:59] LABS: VITAMIN D, 25-HYDROXY 33.1 ng/mL (30-100)
[2019-10-23 08:47] VITALS: BP 144/66
--- NOTE | 2019-10-23 09:00 | NUR ---
Tuber Helper in to talk to patient. Patient states lives at HOME with . There are 2 steps in the home. Physician: owen choi [facility] Home health services: none Patient's level of ADLs: INDEPENDENT Patient has working utilities: all working DME: home oxygen, portable tanks, nebulizer from [employer] Follow-up physician's appointment after d/c: will be made by hospitalist nurse director upon discharge Does patient want to access PORTAL?: no Discharge plan discussed with patient she states she lives at home with her , she is independent in adls and ambulation, has oxygen and portable tanks, she states she will return home when medically stable. discussed with her VNA and she denies any home needs, states her daughter lives close and helps on a daily basis, case management will have community palliative care talk with patient and follow upon discharge. CASSANDRA LONGORIA
--- NOTE | 2019-10-23 09:02 | NUR ---
[facility] CALLED AT THIS TIME REGARDING MED LIST. WAITING FOR FAXED LIST.
--- NOTE | 2019-10-23 09:50 | NUR ---
[facility] CALLED AGAIN REGARDING MED LIST.
--- NOTE | 2019-10-23 10:31 | NUR ---
IN TO SEE PATIENT REGARDING CONSULT.
--- NOTE | 2019-10-23 10:40 | NUR ---
PT MEDICATED WITH IV ZOFRAN AND PO TYLENOL PER PRN ORDER FOR C/O HEADACHE AND NAUSEA. WILL MONITOR EFFECTIVENESS.
[2019-10-23] MEDS ORDERED: OMEPRAZOLE MAGN20 MG PO (10:48)
[2019-10-23] MEDS ORDERED: SYMB160 INH (10:49)
[2019-10-23] MEDS ORDERED: ZYRTEC10 M3 PO (10:50)
[2019-10-23] MEDS ORDERED: FLUTICASONE-SA1 EAC3 NAS (10:51)
--- NOTE | 2019-10-23 10:57 | NUR ---
[facility] CALLED AT THIS TIME REGARDING MED LIST. MED REC UPDATED PER POLICY.
[2019-10-23 12:00] VITALS: BP 110/75
--- NOTE | 2019-10-23 12:20 | NUR ---
PALLIATIVE CARE NOTIFIED REGARDING REFERRAL.
--- NOTE | 2019-10-23 13:31 | NUR ---
12;15 PT INSTRUCTED ON USE OF FLUTTER. PT DEMONSTRATED PROPER TECHNIQUE. PT INSTRUCTED TO USE Q 1 HR W/A.
[2019-10-23 16:00] VITALS: BP 129/67
--- NOTE | 2019-10-23 17:04 | NUR ---
ABGS OBTAINED AND SENT PER ORDER.
[2019-10-23 17:12] LABS: ABG BASE EXCESS 5.5 mmol/L (-2.0-2.0); ARTERIAL BLOOD GAS PH 7.389 (7.35-7.45)
--- NOTE | 2019-10-23 17:23 | NUR ---
MESSAGE LEFT FOR REGARDING ABG RESULTS.
--- NOTE | 2019-10-23 17:33 | NUR ---
NOTIFIED REGARDING ABG RESULTS. NEW ORDERS RECEIVED.
[2019-10-23 20:00] VITALS: BP 152/80
--- NOTE | 2019-10-23 23:02 | NUR ---
PATIENT ON BIPAP AT THIS TIME
--- NOTE | 2019-10-23 23:41 | NUR ---
REMOVED PATIENT FROM THE BIPAP AT THIS TIME. SHE STATED THAT EVERYTIME SHE ATTEMPTS TO FALL ASLEEP SHE FEELS LIKE HER TONGUE IS GOING DOWN HER THROAT. SHE ALSO STATES IF SHE HAS A COUGHING FIT SHE CAN'T COUGH IT UP IT FORCES IT BACK DOWN. PATIENT REQUESTED TO HAVE IT OFF AT THIS TIME AND STATED THAT SHE WILL TRY AGAIN LATER. MAYBE WHEN SHE ISN'T TRYING TO GO TO SLEEP
[2019-10-24] VITALS: BP 141/78
--- NOTE | 2019-10-24 00:17 | NUR ---
PRN TYLENOL GIVEN FOR PT COMPLAINTS SLIGHT NECK PAIN. CALL LIGHT WITHIN REACH, WILL MONITOR
--- NOTE | 2019-10-24 01:20 | NUR ---
PRN MEDICATION APPEARS EFFECTIVE, PT SLEEPING
[2019-10-24 08:00] VITALS: BP 152/90
--- NOTE | 2019-10-24 09:00 | NUR ---
case management visits with patient, discussed with her a discharge plan including a short term prison for rehab prior to returning home, she declined, also dicussed with her VNA and educated her on the services they provide and she declines any home needs at this time, case management will follow
--- NOTE | 2019-10-24 09:33 | NUR ---
NORCO GIVEN FOR C/O GENERALIZED DISCOMFORT. WILL MONITOR.
--- NOTE | 2019-10-24 10:40 | NUR ---
ROSALINA EFFECTIVE PER PT.
[2019-10-24 12:00] VITALS: BP 130/89
[2019-10-24 16:00] VITALS: BP 152/78
[2019-10-24 20:00] VITALS: BP 121/54
--- NOTE | 2019-10-24 20:30 | NUR ---
Hep Lock discontinued RACHEAL. Site symptomatic, PATIENT PULLED OUT. Pressure applied. Sterile dressing applied. LUZMA VALENCIA
--- NOTE | 2019-10-24 20:40 | NUR ---
IV started left arm with #22 protective cath after 1 attempts. Site prepped with Chloroprep. Sterile dressing applied. Patient tolerated procedure well. LUZMA VALENCIA
[2019-10-25] VITALS: BP 123/67
--- NOTE | 2019-10-25 04:58 | NUR ---
24 HR chart check completed.
--- NOTE | 2019-10-25 06:02 | NUR ---
PATIENT MEDICATED WITH NORCO FOR C/O BACK PAIN 06/26. WILL MONITOR
[2019-10-25 08:00] VITALS: BP 129/61; BP 142/76
--- NOTE | 2019-10-25 11:14 | NUR ---
PT. OFF BIPAP AT 1100.
[2019-10-25 12:00] VITALS: BP 145/75
--- NOTE | 2019-10-25 15:39 | NUR ---
NORCO GIVEN FOR C/O BACK PAIN. RATES 6/10 ON PAIN SCALE. WILL MONITOR.
[2019-10-25 16:00] VITALS: BP 137/63
--- NOTE | 2019-10-25 16:45 | NUR ---
ROSALINA EFFECTIVE PER PT.
[2019-10-25 20:00] VITALS: BP 131/69
[2019-10-26] VITALS: BP 135/67
--- NOTE | 2019-10-26 04:18 | NUR ---
PATIENT MEDICATED WITH NORCO FOR C/O BACK PAIN 04/26. WILL MONITOR
[2019-10-26 05:35] LABS: HEMATOCRIT 41.8 % (37.0-47.0); HEMOGLOBIN 13.7 g/dl (12.0-16.0); LYMPH # 0.5 10*3/uL (1.3-4.4); LYMPH % 5.7 % (27.0-41.0); MEAN CORPUSCULAR HGB 32.8 pg (27.0-31.0); MEAN CORPUSCULAR HGB CONC 32.8 g/dl (33.0-37.0); MEAN PLATELET VOLUME 8.6 fl (9.6-12.3); MONO # 0.5 10*3/uL (0.1-1.0); MONO % 5.5 % (3.0-9.0); NEUT # 8.4 10*3/uL (2.3-7.9); NEUT % 88.2 % (47.0-73.0); PLATELET COUNT AUTOMATED 293 10*3/uL (130-400); RED BLOOD COUNT 4.18 10*6/uL (4.10-5.10); RED CELL DISTRI WIDTH 13.5 % (0-14.5); WHITE BLOOD COUNT 9.5 10*3/uL (4.8-10.8)
--- NOTE | 2019-10-26 05:36 | NUR ---
QUESTION ANSWERED IN REGARD TO MEDICTION LIST/LAB WORK. CALL LIGHT LEFT WITHIN REACH
[2019-10-26 05:53] LABS: CREATININE 0.69 mg/dL (0.55-1.02)
[2019-10-26 08:00] VITALS: BP 146/72
--- NOTE | 2019-10-26 08:11 | NUR ---
PT RESTING IN BED. SITTING ON SIDE OF BED. NO DISTRESS NOTED. WILL MONITOR
--- NOTE | 2019-10-26 09:45 | NUR ---
PATIENT PLACED ON BI-PAP PER REQUEST.
--- NOTE | 2019-10-26 10:35 | NUR ---
PATIENT TAKEN OFF OF BI-PAP.
[2019-10-26 12:00] VITALS: BP 128/63
[2019-10-26 16:00] VITALS: BP 103/58; BP 124/66
[2019-10-26 20:00] VITALS: BP 139/67
[2019-10-27] VITALS: BP 152/65
--- NOTE | 2019-10-27 06:08 | NUR ---
PATIENT MEDICATED WITH [facility] FOR C/O 8/ BACK PAIN. WILL MONITOR
[2019-10-27] MEDS ORDERED: PREDNISONE10 MG PO (08:42)
[2019-10-27] MEDS ORDERED: DOXYCYCLINE MO100 M1 PO (08:42)
[2019-10-27] MEDS ORDERED: AVPAK METFORMI500 MG PO (08:42)
[2019-10-27] MEDS ORDERED: LASIX20 MG PO (08:42)
[2019-10-27] MEDS ORDERED: LOPRESSOR25 MG PO (08:42)
--- NOTE | 2019-10-27 09:00 | NUR ---
case management visits with patient, she stated she is being discharged to home today, discussed with her [facility] and again educated on the services they provide, she declined any home services at this time, case management will follow
--- NOTE | 2019-10-27 10:15 | NUR ---
Discharge instructions reviewed with patient/family. Patient receptive and verbalizes understanding. Follow-up care arranged. Written instructions given to patient/family. RA KAN
--- NOTE | 2019-10-27 20:30 | NUR ---
PATIENTS HERE TO [facility] MEDICATIONS FROM PHARMACY
== END 2019-10-27 10:15 | disposition home or self-care (01) | DRG 871 ==
LOC: ED 21:53 → 4E 22:47 → EDHOLD 22:47 → 4E 23:33
PROVIDERS: Emergency Medicine; Internal Medicine; Internal Medicine Critical Care Medicine; ADMIT Internal Medicine
PROC: 5A09357 Assistance with Respiratory Ventilation, Less than 24 Consecutive Hours, Continuous Positive Airway Pressure (ICD-10-PCS; principal; 2019-10-24)
DX: A41.9 Sepsis, unspecified organism (principal); J18.9 Pneumonia, unspecified organism; J96.22 Acute and chronic respiratory failure with hypercapnia; J96.21 Acute and chronic respiratory failure with hypoxia; J45.51 Severe persistent asthma with (acute) exacerbation; J44.1 Chronic obstructive pulmonary disease with (acute) exacerbation; J44.0 Chronic obstructive pulmonary disease with (acute) lower respiratory infection; E87.1 Hypo-osmolality and hyponatremia; I24.8 Other forms of acute ischemic heart disease; Z98.61 Coronary angioplasty status; J20.9 Acute bronchitis, unspecified; E87.8 Other disorders of electrolyte and fluid balance, not elsewhere classified; D75.1 Secondary polycythemia; R73.9 Hyperglycemia, unspecified; E83.41 Hypermagnesemia; F17.210 Nicotine dependence, cigarettes, uncomplicated; F43.10 Post-traumatic stress disorder, unspecified; F41.1 Generalized anxiety disorder; F32.9 Major depressive disorder, single episode, unspecified; K59.00 Constipation, unspecified; I10 Essential (primary) hypertension; E78.5 Hyperlipidemia, unspecified; E66.3 Overweight; I25.10 Atherosclerotic heart disease of native coronary artery without angina pectoris; G47.00 Insomnia, unspecified; Z71.6 Tobacco abuse counseling; Z68.27 Body mass index [BMI] 27.0-27.9, adult; Z99.81 Dependence on supplemental oxygen; Z88.1 Allergy status to other antibiotic agents; Z88.0 Allergy status to penicillin; Z88.8 Allergy status to other drugs, medicaments and biological substances; Z79.82 Long term (current) use of aspirin; Z79.899 Other long term (current) drug therapy; Z81.1 Family history of alcohol abuse and dependence; Z83.3 Family history of diabetes mellitus; Z82.49 Family history of ischemic heart disease and other diseases of the circulatory system

== ENCOUNTER → 2019-10-22 | Outpatient (CLI) | payer OTHER ==
[~2019-10-22] MED LIST changes: +AVPAK METFORMI500 MG PO; +DOXYCYCLINE MO100 M1 PO; +FLUTICASONE-SA1 EAC3 NAS; +K-TAB20 MEQ PO; +LASIX20 MG PO; +LASIX40 MG PO; +LISINOPRIL20 MG PO; +LOPRESSOR25 MG PO; +Nystatin 100,000 UNI PO; +OMEPRAZOLE MAGN20 MG PO; +SYMB160 INH; +ZYRTEC10 M3 PO
[2019-10-22 13:53] LABS: BASO % 0.4 % (0.0-1.0); EOS # 0.2 10*3/uL (0.0-0.4); EOS % 2.4 % (1.0-4.0); HEMATOCRIT 43.6 % (37.0-47.0); HEMOGLOBIN 14.2 g/dl (12.0-16.0); LYMPH # 1.1 10*3/uL (1.3-4.4); LYMPH % 11.7 % (27.0-41.0); MEAN CELL VOLUME 99.5 fl (81.0-99.0); MEAN CORPUSCULAR HGB 32.4 pg (27.0-31.0); MEAN CORPUSCULAR HGB CONC 32.6 g/dl (33.0-37.0); MEAN PLATELET VOLUME 8.3 fl (9.6-12.3); MONO # 0.7 10*3/uL (0.1-1.0); MONO % 7.8 % (3.0-9.0); NEUT # 7.2 10*3/uL (2.3-7.9); NEUT % 76.1 % (47.0-73.0); PLATELET COUNT AUTOMATED 286 10*3/uL (130-400); RED BLOOD COUNT 4.38 10*6/uL (4.10-5.10); RED CELL DISTRI WIDTH 13.8 % (0-14.5); WHITE BLOOD COUNT 9.5 10*3/uL (4.8-10.8)
== END | disposition home or self-care (01) ==
LOC: LAB 13:18
PROVIDERS: Internal Medicine Critical Care Medicine
DX: Z79.899 Other long term (current) drug therapy (principal)

== ENCOUNTER → 2019-11-03 | Outpatient (CLI) | payer OTHER ==
[~2019-11-03] MED LIST changes: +AVPAK METFORMI500 MG PO; +DOXYCYCLINE MO100 M1 PO; +FLUTICASONE-SA1 EAC3 NAS; +K-TAB20 MEQ PO; +LASIX20 MG PO; +LASIX40 MG PO; +LISINOPRIL20 MG PO; +LOPRESSOR25 MG PO; +Nystatin 100,000 UNI PO; +OMEPRAZOLE MAGN20 MG PO; +SYMB160 INH; +ZYRTEC10 M3 PO
[2019-11-03 13:54] LABS: BUN 22 mg/dl (7-24); CHLORIDE 90 mmol/L (98-107); CREATININE 0.87 mg/dL (0.55-1.02); POTASSIUM 4.3 mmol/L (3.5-5.1); SODIUM 128 mmol/L (136-145)
== END | disposition home or self-care (01) ==
LOC: LAB 12:36
PROVIDERS: Internal Medicine
DX: E87.1 Hypo-osmolality and hyponatremia (principal)

== ENCOUNTER 2019-11-12 13:15 | Inpatient (IN) | payer OTHER ==
[~2019-11-12] VITALS: Ht 170.1 cm; Wt 79.0 kg
[~2019-11-12 13:15] MED LIST changes: -K-TAB20 MEQ PO; -LASIX40 MG PO; -Nystatin 100,000 UNI PO
[2019-11-12 13:29] VITALS: BP 117/60
[2019-11-12 14:26] LABS: BASO % 0.1 % (0.0-1.0); EOS % 0.2 % (1.0-4.0); HEMATOCRIT 41.7 % (37.0-47.0); HEMOGLOBIN 13.6 g/dl (12.0-16.0); LYMPH # 0.7 10*3/uL (1.3-4.4); LYMPH % 5.3 % (27.0-41.0); MEAN CELL VOLUME 99.5 fl (81.0-99.0); MEAN CORPUSCULAR HGB 32.5 pg (27.0-31.0); MEAN CORPUSCULAR HGB CONC 32.6 g/dl (33.0-37.0); MONO # 0.5 10*3/uL (0.1-1.0); MONO % 4.1 % (3.0-9.0); NEUT # 10.9 10*3/uL (2.3-7.9); NEUT % 88.8 % (47.0-73.0); PLATELET COUNT AUTOMATED 353 10*3/uL (130-400); RED BLOOD COUNT 4.19 10*6/uL (4.10-5.10); RED CELL DISTRI WIDTH 13.7 % (0-14.5); WHITE BLOOD COUNT 12.3 10*3/uL (4.8-10.8)
[2019-11-12 14:41] LABS: ALBUMIN 3.3 gm/dl (3.1-4.5); ALKALINE PHOSPHATASE 38 U/L (45-117); BUN 28 mg/dl (7-24); CHLORIDE 97 mmol/L (98-107); CREATININE 0.93 mg/dL (0.55-1.02); SGOT/AST 13 IU/L (3-35); SGPT/ALT 32 U/L (12-78); SODIUM 135 mmol/L (136-145); TOTAL PROTEIN 6.5 gm/dL (6.4-8.2)
[2019-11-12 16:27] VITALS: BP 112/60
[2019-11-12 17:41] VITALS: BP 107/48
[2019-11-12 18:26] VITALS: BP 126/48
[2019-11-12 20:00] VITALS: BP 114/46
[2019-11-13] VITALS: BP 110/68
[2019-11-13 06:57] LABS: HEMATOCRIT 39.8 % (37.0-47.0); MEAN CELL VOLUME 99.3 fl (81.0-99.0); MEAN CORPUSCULAR HGB 32.4 pg (27.0-31.0); MEAN CORPUSCULAR HGB CONC 32.7 g/dl (33.0-37.0); MEAN PLATELET VOLUME 9.2 fl (9.6-12.3); PLATELET COUNT AUTOMATED 309 10*3/uL (130-400); RED BLOOD COUNT 4.01 10*6/uL (4.10-5.10); RED CELL DISTRI WIDTH 13.8 % (0-14.5); WHITE BLOOD COUNT 11.5 10*3/uL (4.8-10.8)
[2019-11-13 07:02] LABS: ALBUMIN 2.9 gm/dl (3.1-4.5); ALKALINE PHOSPHATASE 34 U/L (45-117); BUN 27 mg/dl (7-24); CHLORIDE 102 mmol/L (98-107); CREATININE 0.78 mg/dL (0.55-1.02); PHOSPHOROUS 3.1 mg/dL (2.5-4.9); POTASSIUM 3.5 mmol/L (3.5-5.1); SGOT/AST 11 IU/L (3-35); SGPT/ALT 32 U/L (12-78); SODIUM 139 mmol/L (136-145); TOTAL PROTEIN 5.6 gm/dL (6.4-8.2)
[2019-11-13 07:53] LABS: ATYPICAL LYMPHS 2 % (0-0); TOTAL CELLS COUNTED 100 #CELLS
[2019-11-13 07:54] LABS: OVALOCYTES FEW; PLATELET SUFFICIENCY NORMAL (NORMAL); TARGET CELLS FEW
[2019-11-13 08:00] VITALS: BP 117/58
[2019-11-13] MEDS ORDERED: LASIX40 MG PO (11:38)
[2019-11-13] MEDS ORDERED: K-TAB20 MEQ PO (11:38)
[2019-11-13] MEDS ORDERED: Nystatin 100,000 UNI PO (11:38)
[2019-11-13] MEDS ORDERED: DOXYCYCLINE100 M3 PO (11:38)
[2019-11-13 12:00] VITALS: BP 105/50
== END 2019-11-13 13:52 | disposition home or self-care (01) | DRG 872 ==
LOC: ED 13:15 → EDHOLD 15:58 → 5E 17:17
PROVIDERS: Internal Medicine; Nurse Practitioner Family; ADMIT Family Medicine
DX: A41.9 Sepsis, unspecified organism (principal); L03.115 Cellulitis of right lower limb; E87.2 Acidosis; E87.1 Hypo-osmolality and hyponatremia; B37.0 Candidal stomatitis; R65.20 Severe sepsis without septic shock; R73.9 Hyperglycemia, unspecified; J44.9 Chronic obstructive pulmonary disease, unspecified; E78.5 Hyperlipidemia, unspecified; I25.10 Atherosclerotic heart disease of native coronary artery without angina pectoris; F32.9 Major depressive disorder, single episode, unspecified; F41.1 Generalized anxiety disorder; I11.0 Hypertensive heart disease with heart failure; I50.9 Heart failure, unspecified; F43.10 Post-traumatic stress disorder, unspecified; Z87.891 Personal history of nicotine dependence; Z83.3 Family history of diabetes mellitus; Z82.49 Family history of ischemic heart disease and other diseases of the circulatory system; Z83.6 Family history of other diseases of the respiratory system; Z83.2 Family history of diseases of the blood and blood-forming organs and certain disorders involving the immune mechanism; Z88.0 Allergy status to penicillin; Z88.1 Allergy status to other antibiotic agents; Z88.2 Allergy status to sulfonamides; Z91.048 Other nonmedicinal substance allergy status; Z79.82 Long term (current) use of aspirin; Z79.899 Other long term (current) drug therapy

== ENCOUNTER → 2019-11-27 | Outpatient (CLI) | payer OTHER ==
[~2019-11-27] MED LIST changes: +K-TAB20 MEQ PO; +LASIX40 MG PO; +Nystatin 100,000 UNI PO
== END | disposition home or self-care (01) ==
LOC: LAB 11-26 13:47
DX: R05 Cough (principal)

== ENCOUNTER → 2019-12-21 | Outpatient (CLI) | payer OTHER | END | disposition home or self-care (01) | LOC: LAB 13:45 | DX: R05 Cough (principal) ==

== ENCOUNTER 2020-03-01 22:31 | Inpatient (IN) | payer OTHER ==
[~2020-03-01] VITALS: Ht 170.1 cm; Wt 69.1 kg
[2020-03-01 22:33] VITALS: BP 168/79
[2020-03-01 22:50] VITALS: BP 154/75
[2020-03-01 23:00] VITALS: BP 162/57
[2020-03-01 23:01] LABS: HEMATOCRIT 36.6 % (37.0-47.0); MEAN CELL VOLUME 92.7 fl (81.0-99.0); MEAN CORPUSCULAR HGB 30.4 pg (27.0-31.0); MEAN CORPUSCULAR HGB CONC 32.8 g/dl (33.0-37.0); MEAN PLATELET VOLUME 8.4 fl (9.6-12.3); PLATELET COUNT AUTOMATED 463 10*3/uL (130-400); RED BLOOD COUNT 3.95 10*6/uL (4.10-5.10); RED CELL DISTRI WIDTH 12.2 % (0-14.5); WHITE BLOOD COUNT 14.1 10*3/uL (4.8-10.8)
[2020-03-01 23:10] VITALS: BP 135/64
[2020-03-01 23:11] LABS: ACT PARTIAL THROMBO TIME 25.1 SECONDS (20.0-32.1); INTERNATIONAL NORM RATIO 0.9 (2.0-3.5)
[2020-03-01 23:19] LABS: TROPONIN I 0.02 ng/ml (<0.045)
[2020-03-01 23:20] VITALS: BP 153/67
[2020-03-01 23:20] LABS: ALBUMIN 3.2 gm/dl (3.1-4.5); ALKALINE PHOSPHATASE 52 U/L (45-117); BUN 17 mg/dl (7-24); CHLORIDE 90 mmol/L (98-107); CREATININE 0.76 mg/dL (0.55-1.02); POTASSIUM 4.6 mmol/L (3.5-5.1); SGOT/AST 11 IU/L (3-35); SGPT/ALT 22 U/L (12-78); SODIUM 124 mmol/L (136-145)
[2020-03-01 23:21] LABS: TOTAL CELLS COUNTED 100 #CELLS
[2020-03-01 23:22] LABS: PLATELET SUFFICIENCY HIGH (NORMAL); TROPONIN I 0.016 ng/ml (<0.045)
[2020-03-01 23:40] VITALS: BP 146/68
[2020-03-02 01:00] VITALS: BP 147/91
[2020-03-02 01:43] LABS: ABG BASE EXCESS 3.2 mmol/L (-2.0-2.0); ARTERIAL BLOOD GAS PH 7.399 (7.35-7.45)
[2020-03-02] MEDS ORDERED: DALIRESP250 MCG PO (01:56)
[2020-03-02] MEDS ORDERED: LASIX20 MG PO (02:02)
[2020-03-02] MEDS ORDERED: PREDNISONE5 MG PO (02:03)
[2020-03-02] MEDS ORDERED: MUCUS RELIEF400 MG PO (02:07)
[2020-03-02] MEDS ORDERED: ALEVE220 M1 PO (02:08)
[2020-03-02] MEDS ORDERED: ALDARA1 EACH T (02:11)
[2020-03-02] MEDS ORDERED: TUMS200 MG PO (02:12)
[2020-03-02] MEDS ORDERED: FASENRA30 MG/1 ML SQ (02:13)
[2020-03-02] MEDS ORDERED: BENADRYL ALLERG25 M5 PO (02:15)
[2020-03-02] MEDS ORDERED: SINGULAIR10 M1 PO (02:16)
[2020-03-02 05:24] LABS: BUN 18 mg/dl (7-24); CHLORIDE 90 mmol/L (98-107); CHOLESTEROL 255 mg/dL (<200); CREATININE 0.79 mg/dL (0.55-1.02); FREE T4 1.23 ng/dl (0.76-1.46); HDL CHOLESTEROL 112 mg/dl (40-60); LDL CHOLESTEROL 131 mg/dL (9-159); POTASSIUM 4.2 mmol/L (3.5-5.1); SODIUM 127 mmol/L (136-145); TRIGLYCERIDES 62 mg/dl (<150); VLDL CHOLESTEROL 12 mg/dL (6-40)
[2020-03-02 05:30] LABS: THYROID STIM HORMONE (HS) 0.352 uIU/ml (0.358-4.75)
[2020-03-02 06:01] LABS: HEMATOCRIT 35.9 % (37.0-47.0); MEAN CELL VOLUME 92.8 fl (81.0-99.0); MEAN CORPUSCULAR HGB 30.7 pg (27.0-31.0); MEAN CORPUSCULAR HGB CONC 33.1 g/dl (33.0-37.0); MEAN PLATELET VOLUME 9.5 fl (9.6-12.3); PLATELET COUNT AUTOMATED 469 10*3/uL (130-400); RED BLOOD COUNT 3.87 10*6/uL (4.10-5.10); RED CELL DISTRI WIDTH 12.2 % (0-14.5); WHITE BLOOD COUNT 14.2 10*3/uL (4.8-10.8)
[2020-03-02 06:38] LABS: VITAMIN D, 25-HYDROXY 36.2 ng/mL (30-100)
[2020-03-02 06:59] LABS: PLATELET SUFFICIENCY HIGH (NORMAL); TOTAL CELLS COUNTED 100 #CELLS
[2020-03-02 08:00] VITALS: BP 130/58
[2020-03-02 09:00] VITALS: BP 142/76
[2020-03-02 12:00] VITALS: BP 96/57
[2020-03-02] MEDS ORDERED: NASAL MIST126 ML NAS (12:13)
[2020-03-02 16:00] VITALS: BP 104/64
[2020-03-02 20:00] VITALS: BP 118/46
[2020-03-03] VITALS: BP 100/50
[2020-03-03 06:25] VITALS: BP 102/47
[2020-03-03 06:43] LABS: BASO % 0.1 % (0.0-1.0); HEMATOCRIT 35.3 % (37.0-47.0); LYMPH # 0.6 10*3/uL (1.3-4.4); LYMPH % 5.6 % (27.0-41.0); MEAN CELL VOLUME 90.7 fl (81.0-99.0); MEAN CORPUSCULAR HGB 30.6 pg (27.0-31.0); MEAN CORPUSCULAR HGB CONC 33.7 g/dl (33.0-37.0); MEAN PLATELET VOLUME 8.9 fl (9.6-12.3); MONO # 0.8 10*3/uL (0.1-1.0); MONO % 7.5 % (3.0-9.0); NEUT # 8.6 10*3/uL (2.3-7.9); NEUT % 86.3 % (47.0-73.0); PLATELET COUNT AUTOMATED 373 10*3/uL (130-400); RED BLOOD COUNT 3.89 10*6/uL (4.10-5.10); RED CELL DISTRI WIDTH 12.4 % (0-14.5)
[2020-03-03 06:57] LABS: BUN 25 mg/dl (7-24); CHLORIDE 92 mmol/L (98-107); CREATININE 0.83 mg/dL (0.55-1.02); SODIUM 127 mmol/L (136-145)
[2020-03-03 08:00] VITALS: BP 100/58
[2020-03-03 12:00] VITALS: BP 130/72
[2020-03-03 16:00] VITALS: BP 114/45
[2020-03-03 20:00] VITALS: BP 88/46
[2020-03-04] VITALS: BP 108/52
[2020-03-04 05:00] VITALS: BP 104/56
[2020-03-04 06:24] LABS: BASO % 0.1 % (0.0-1.0); HEMATOCRIT 35.9 % (37.0-47.0); LYMPH # 0.5 10*3/uL (1.3-4.4); LYMPH % 4.2 % (27.0-41.0); MEAN CELL VOLUME 90.7 fl (81.0-99.0); MEAN CORPUSCULAR HGB 30.6 pg (27.0-31.0); MEAN CORPUSCULAR HGB CONC 33.7 g/dl (33.0-37.0); MEAN PLATELET VOLUME 8.6 fl (9.6-12.3); MONO # 0.8 10*3/uL (0.1-1.0); MONO % 6.4 % (3.0-9.0); NEUT # 10.8 10*3/uL (2.3-7.9); NEUT % 88.9 % (47.0-73.0); PLATELET COUNT AUTOMATED 445 10*3/uL (130-400); RED BLOOD COUNT 3.96 10*6/uL (4.10-5.10); RED CELL DISTRI WIDTH 12.3 % (0-14.5); WHITE BLOOD COUNT 12.1 10*3/uL (4.8-10.8)
[2020-03-04 06:59] LABS: BUN 30 mg/dl (7-24); CHLORIDE 91 mmol/L (98-107); CREATININE 0.85 mg/dL (0.55-1.02); POTASSIUM 4.1 mmol/L (3.5-5.1); SODIUM 129 mmol/L (136-145)
[2020-03-04 08:00] VITALS: BP 102/56
[2020-03-04 12:00] VITALS: BP 107/56
[2020-03-04] MEDS ORDERED: PREDNISONE10 MG PO (15:21)
[2020-03-04] MEDS ORDERED: DOXYCYCLINE100 M3 PO (15:21)
== END 2020-03-04 16:42 | disposition home or self-care (01) | DRG 871 ==
LOC: ED 22:31 → EDHOLD 03-02 00:10 → 5E 03-02 00:10
PROVIDERS: Emergency Medicine; Internal Medicine; ADMIT Family Medicine
DX: A41.9 Sepsis, unspecified organism (principal); J18.9 Pneumonia, unspecified organism; I50.33 Acute on chronic diastolic (congestive) heart failure; J96.21 Acute and chronic respiratory failure with hypoxia; J44.1 Chronic obstructive pulmonary disease with (acute) exacerbation; J44.0 Chronic obstructive pulmonary disease with (acute) lower respiratory infection; E87.1 Hypo-osmolality and hyponatremia; E44.1 Mild protein-calorie malnutrition; I16.0 Hypertensive urgency; D47.3 Essential (hemorrhagic) thrombocythemia; E87.8 Other disorders of electrolyte and fluid balance, not elsewhere classified; F43.10 Post-traumatic stress disorder, unspecified; F41.1 Generalized anxiety disorder; F32.9 Major depressive disorder, single episode, unspecified; I11.0 Hypertensive heart disease with heart failure; I25.10 Atherosclerotic heart disease of native coronary artery without angina pectoris; G47.00 Insomnia, unspecified; J30.2 Other seasonal allergic rhinitis; E11.65 Type 2 diabetes mellitus with hyperglycemia; E83.41 Hypermagnesemia; G47.33 Obstructive sleep apnea (adult) (pediatric); D64.9 Anemia, unspecified; Z87.891 Personal history of nicotine dependence; Z99.81 Dependence on supplemental oxygen; Z83.3 Family history of diabetes mellitus; Z82.49 Family history of ischemic heart disease and other diseases of the circulatory system; Z83.6 Family history of other diseases of the respiratory system; Z81.1 Family history of alcohol abuse and dependence; Z88.0 Allergy status to penicillin; Z88.1 Allergy status to other antibiotic agents; Z88.8 Allergy status to other drugs, medicaments and biological substances; Z79.82 Long term (current) use of aspirin; Z79.899 Other long term (current) drug therapy; Z79.84 Long term (current) use of oral hypoglycemic drugs; Z71.6 Tobacco abuse counseling; Z98.42 Cataract extraction status, left eye; Z98.41 Cataract extraction status, right eye; Z96.1 Presence of intraocular lens; Z68.24 Body mass index [BMI] 24.0-24.9, adult

== ENCOUNTER 2020-04-02 18:47 | Emergency (ER) | payer OTHER ==
[~2020-04-02] VITALS: Wt 71.2 kg
[~2020-04-02 18:47] MED LIST changes: +ALDARA1 EACH T; +ALEVE220 M1 PO; +BENADRYL ALLERG25 M5 PO; +DALIRESP250 MCG PO; +FASENRA30 MG/1 ML SQ; +MUCUS RELIEF400 MG PO; +NASAL MIST126 ML NAS; +PREDNISONE5 MG PO; +SINGULAIR10 M1 PO; +TUMS200 MG PO
[2020-04-02 19:44] LABS: BASO % 0.1 % (0.0-1.0); HEMATOCRIT 33.6 % (37.0-47.0); LYMPH # 1.9 10*3/uL (1.3-4.4); LYMPH % 21.2 % (27.0-41.0); MEAN CELL VOLUME 88.4 fl (81.0-99.0); MEAN CORPUSCULAR HGB 28.4 pg (27.0-31.0); MEAN CORPUSCULAR HGB CONC 32.1 g/dl (33.0-37.0); MEAN PLATELET VOLUME 8.5 fl (9.6-12.3); MONO # 0.9 10*3/uL (0.1-1.0); NEUT % 68.4 % (47.0-73.0); PLATELET COUNT AUTOMATED 431 10*3/uL (130-400); RED CELL DISTRI WIDTH 13.4 % (0-14.5); WHITE BLOOD COUNT 8.8 10*3/uL (4.8-10.8)
[2020-04-02 19:55] LABS: ACT PARTIAL THROMBO TIME 24.1 SECONDS (20.0-32.1); INTERNATIONAL NORM RATIO 0.9 (2.0-3.5)
[2020-04-02 20:01] LABS: ALBUMIN 3.2 gm/dl (3.1-4.5); ALKALINE PHOSPHATASE 48 U/L (45-117); BUN 16 mg/dl (7-24); CHLORIDE 97 mmol/L (98-107); CREATININE 0.84 mg/dL (0.55-1.02); POTASSIUM 4.7 mmol/L (3.5-5.1); SGOT/AST 19 IU/L (3-35); SGPT/ALT 22 U/L (12-78); SODIUM 133 mmol/L (136-145); TOTAL PROTEIN 6.7 gm/dL (6.4-8.2)
[2020-04-02 20:02] LABS: TROPONIN I 0.027 ng/ml (<0.045)
[2020-04-02] MEDS ORDERED: PREDNISONE10 MG PO (21:59)
[2020-04-02 22:40] VITALS: BP 105/54
== END 2020-04-02 22:40 | disposition home or self-care (01) ==
LOC: ED 18:47
PROVIDERS: Emergency Medicine Emergency Medical Services
DX: J44.1 Chronic obstructive pulmonary disease with (acute) exacerbation (principal); K21.9 Gastro-esophageal reflux disease without esophagitis; I10 Essential (primary) hypertension; E11.9 Type 2 diabetes mellitus without complications; Z91.041 Radiographic dye allergy status; Z88.2 Allergy status to sulfonamides; Z88.8 Allergy status to other drugs, medicaments and biological substances; Z88.0 Allergy status to penicillin; Z79.899 Other long term (current) drug therapy; Z87.891 Personal history of nicotine dependence

== ENCOUNTER → 2020-04-09 | Outpatient (CLI) | payer OTHER ==
[2020-04-09 11:10] LABS: BASO % 0.1 % (0.0-1.0); HEMATOCRIT 33.6 % (37.0-47.0); LYMPH # 0.8 10*3/uL (1.3-4.4); LYMPH % 5.5 % (27.0-41.0); MEAN CELL VOLUME 88.4 fl (81.0-99.0); MEAN CORPUSCULAR HGB 28.4 pg (27.0-31.0); MEAN CORPUSCULAR HGB CONC 32.1 g/dl (33.0-37.0); MEAN PLATELET VOLUME 8.4 fl (9.6-12.3); MONO # 0.7 10*3/uL (0.1-1.0); MONO % 5.4 % (3.0-9.0); NEUT # 12.1 10*3/uL (2.3-7.9); NEUT % 88.2 % (47.0-73.0); PLATELET COUNT AUTOMATED 553 10*3/uL (130-400); RED CELL DISTRI WIDTH 13.9 % (0-14.5); WHITE BLOOD COUNT 13.8 10*3/uL (4.8-10.8)
[2020-04-09 11:29] LABS: ALBUMIN 3.4 gm/dl (3.1-4.5); BILIRUBIN, DIRECT < 0.1 mg/dL (0.0-0.2); BUN 26 mg/dl (7-24); CHLORIDE 93 mmol/L (98-107); CHOLESTEROL 263 mg/dL (<200); CREATININE 1.01 mg/dL (0.55-1.02); POTASSIUM 5.2 mmol/L (3.5-5.1); SGOT/AST 27 IU/L (3-35); SGPT/ALT 25 U/L (12-78); SODIUM 131 mmol/L (136-145); TOTAL PROTEIN 7.1 gm/dL (6.4-8.2); TRIGLYCERIDES 70 mg/dl (<150); VLDL CHOLESTEROL 14 mg/dL (6-40)
[2020-04-09 11:31] LABS: HDL CHOLESTEROL 136 mg/dl (40-60); LDL CHOLESTEROL 113 mg/dL (9-159)
[2020-04-09 11:32] LABS: ALKALINE PHOSPHATASE 41 U/L (45-117)
== END | disposition home or self-care (01) ==
LOC: LAB 10:47
PROVIDERS: Internal Medicine
DX: I25.10 Atherosclerotic heart disease of native coronary artery without angina pectoris (principal); E11.9 Type 2 diabetes mellitus without complications; I10 Essential (primary) hypertension; Z79.4 Long term (current) use of insulin

== ENCOUNTER → 2020-04-26 | Outpatient (CLI) | payer OTHER ==
[2020-04-26 12:41] LABS: ALBUMIN 3.3 gm/dl (3.1-4.5); BUN 14 mg/dl (7-24); CHLORIDE 100 mmol/L (98-107); CREATININE 0.96 mg/dL (0.55-1.02); POTASSIUM 3.9 mmol/L (3.5-5.1); SODIUM 135 mmol/L (136-145)
== END | disposition home or self-care (01) ==
LOC: LAB 11:31
PROVIDERS: Internal Medicine
DX: E78.5 Hyperlipidemia, unspecified (principal)

== ENCOUNTER 2021-03-18 00:01 | Emergency (ER) | payer OTHER ==
[~2021-03-18] VITALS: Ht 170.1 cm; Wt 65.8 kg
[2021-03-18 00:13] VITALS: BP 153/58
[2021-03-18 01:05] LABS: BASO % 0.2 % (0.0-1.0); HEMATOCRIT 35.8 % (37.0-47.0); LYMPH # 2.1 10*3/uL (1.3-4.4); LYMPH % 21.8 % (27.0-41.0); MEAN CELL VOLUME 82.7 fl (81.0-99.0); MEAN CORPUSCULAR HGB 25.4 pg (27.0-31.0); MEAN CORPUSCULAR HGB CONC 30.7 g/dl (33.0-37.0); MEAN PLATELET VOLUME 8.9 fl (9.6-12.3); MONO # 1.3 10*3/uL (0.1-1.0); MONO % 14.1 % (3.0-9.0); NEUT % 63.5 % (47.0-73.0); PLATELET COUNT AUTOMATED 505 10*3/uL (130-400); RED BLOOD COUNT 4.33 10*6/uL (4.10-5.10); RED CELL DISTRI WIDTH 16.5 % (0-14.5); WHITE BLOOD COUNT 9.5 10*3/uL (4.8-10.8)
[2021-03-18 01:22] LABS: ALBUMIN 3.1 gm/dl (3.1-4.5); ALKALINE PHOSPHATASE 57 U/L (45-117); BUN 20 mg/dl (7-24); CHLORIDE 104 mmol/L (98-107); CREATININE 0.71 mg/dL (0.55-1.02); POTASSIUM 3.6 mmol/L (3.5-5.1); SGOT/AST 10 IU/L (3-35); SGPT/ALT 17 U/L (12-78); SODIUM 135 mmol/L (136-145); TOTAL PROTEIN 6.6 gm/dL (6.4-8.2)
[2021-03-18] MEDS ORDERED: PREDNISONE20 M1 PO (01:56)
== END 2021-03-18 02:18 | disposition home or self-care (01) ==
LOC: ED 00:01
PROVIDERS: Internal Medicine
DX: J44.1 Chronic obstructive pulmonary disease with (acute) exacerbation (principal); Z91.041 Radiographic dye allergy status; Z88.0 Allergy status to penicillin; Z88.2 Allergy status to sulfonamides; Z91.048 Other nonmedicinal substance allergy status; Z79.899 Other long term (current) drug therapy; Z79.2 Long term (current) use of antibiotics; Z79.82 Long term (current) use of aspirin; Z90.49 Acquired absence of other specified parts of digestive tract; Z98.890 Other specified postprocedural states; Z87.891 Personal history of nicotine dependence

== ENCOUNTER 2021-03-22 20:29 | Emergency (ER) | payer OTHER ==
[~2021-03-22] VITALS: Ht 170.1 cm; Wt 66.2 kg
[~2021-03-22 20:29] MED LIST changes: +PREDNISONE20 M1 PO
[2021-03-22 20:50] VITALS: BP 134/68
[2021-03-22 21:31] LABS: BASO % 0.2 % (0.0-1.0); HEMATOCRIT 37.3 % (37.0-47.0); LYMPH # 1.2 10*3/uL (1.3-4.4); LYMPH % 8.3 % (27.0-41.0); MEAN CELL VOLUME 80.7 fl (81.0-99.0); MEAN CORPUSCULAR HGB 25.1 pg (27.0-31.0); MEAN CORPUSCULAR HGB CONC 31.1 g/dl (33.0-37.0); MEAN PLATELET VOLUME 8.6 fl (9.6-12.3); MONO # 0.8 10*3/uL (0.1-1.0); MONO % 5.2 % (3.0-9.0); NEUT # 12.4 10*3/uL (2.3-7.9); NEUT % 85.6 % (47.0-73.0); PLATELET COUNT AUTOMATED 480 10*3/uL (130-400); RED BLOOD COUNT 4.62 10*6/uL (4.10-5.10); RED CELL DISTRI WIDTH 17.1 % (0-14.5); WHITE BLOOD COUNT 14.5 10*3/uL (4.8-10.8)
[2021-03-22 21:47] LABS: ALBUMIN 3.2 gm/dl (3.1-4.5); ALKALINE PHOSPHATASE 57 U/L (45-117); BUN 19 mg/dl (7-24); CHLORIDE 101 mmol/L (98-107); CREATININE 0.86 mg/dL (0.55-1.02); POTASSIUM 4.3 mmol/L (3.5-5.1); SGOT/AST 10 IU/L (3-35); SGPT/ALT 21 U/L (12-78); SODIUM 134 mmol/L (136-145); TOTAL PROTEIN 6.7 gm/dL (6.4-8.2)
[2021-03-23] MEDS ORDERED: VIBRAMYCIN100 MG PO (00:45)
== END 2021-03-23 01:04 | disposition home or self-care (01) ==
LOC: ED 20:29
PROVIDERS: Emergency Medicine
DX: L03.114 Cellulitis of left upper limb (principal); I50.9 Heart failure, unspecified; F41.9 Anxiety disorder, unspecified; I25.10 Atherosclerotic heart disease of native coronary artery without angina pectoris; E78.5 Hyperlipidemia, unspecified; J44.9 Chronic obstructive pulmonary disease, unspecified; Z88.0 Allergy status to penicillin; Z88.8 Allergy status to other drugs, medicaments and biological substances; Z79.899 Other long term (current) drug therapy; Z98.890 Other specified postprocedural states; Z90.49 Acquired absence of other specified parts of digestive tract

== ENCOUNTER 2021-08-27 15:46 | Emergency (ER) | payer OTHER ==
[~2021-08-27] VITALS: Ht 170.1 cm; Wt 67.1 kg
[~2021-08-27 15:46] MED LIST changes: +Clotrimazole Tr10 MG PO; +MATZIM LA180 MG PO; +PRECOSE50 MG PO; +PREDNISONE10 M1 PO; +REMERON15 M2 PO; +VIBRA-TAB100 MG PO
[2021-08-27 15:52] VITALS: BP 140/52
[2021-08-27 16:28] LABS: BASO % 0.1 % (0.0-1.0); HEMATOCRIT 29.5 % (37.0-47.0); LYMPH # 0.5 10*3/uL (1.3-4.4); LYMPH % 4.2 % (27.0-41.0); MEAN CELL VOLUME 73.4 fl (81.0-99.0); MEAN CORPUSCULAR HGB 21.4 pg (27.0-31.0); MEAN CORPUSCULAR HGB CONC 29.2 g/dl (33.0-37.0); MONO # 0.7 10*3/uL (0.1-1.0); MONO % 6.6 % (3.0-9.0); NEUT # 9.5 10*3/uL (2.3-7.9); NEUT % 88.5 % (47.0-73.0); PLATELET COUNT AUTOMATED 493 10*3/uL (130-400); RED BLOOD COUNT 4.02 10*6/uL (4.10-5.10); RED CELL DISTRI WIDTH 18.6 % (0-14.5); WHITE BLOOD COUNT 10.7 10*3/uL (4.8-10.8)
[2021-08-27 16:49] LABS: ALBUMIN 2.9 gm/dl (3.1-4.5); ALKALINE PHOSPHATASE 41 U/L (45-117); BUN 22 mg/dl (7-24); CHLORIDE 94 mmol/L (98-107); CREATININE 0.67 mg/dL (0.55-1.02); SGOT/AST 11 IU/L (3-35); SGPT/ALT 25 U/L (12-78); SODIUM 134 mmol/L (136-145); TOTAL PROTEIN 6.4 gm/dL (6.4-8.2)
[2021-08-27 17:43] LABS: BILIRUBIN Negative (Negative); BLOOD Negative (Negative); CLARITY Clear (Clear); COLOR Yellow (Yellow); GLUCOSE Negative (Negative); KETONE Negative (Negative); LEUKO ESTERASE 1+ (Negative); NITRITE Negative (Negative); PH 7.5 (4.5-8.0); UROBILINOGEN 0.2 E.U./dl (0.0-1.0)
[2021-08-27 18:00] LABS: BACTERIA 1+; EPITHELIAL CELLS 51-100; RBC 0-2 rbc/hpf (0-2)
== END 2021-08-27 19:20 | disposition home or self-care (01) ==
LOC: ED 15:46
PROVIDERS: Physician Assistant
DX: S41.111A Laceration without foreign body of right upper arm, initial encounter (principal); S09.90XA Unspecified injury of head, initial encounter; R55 Syncope and collapse; J18.9 Pneumonia, unspecified organism; J44.9 Chronic obstructive pulmonary disease, unspecified; Z87.891 Personal history of nicotine dependence; Z90.89 Acquired absence of other organs; Z98.890 Other specified postprocedural states; Z79.899 Other long term (current) drug therapy; Z91.041 Radiographic dye allergy status; Z88.0 Allergy status to penicillin; Z88.2 Allergy status to sulfonamides; Z88.1 Allergy status to other antibiotic agents; Z99.81 Dependence on supplemental oxygen; W18.30XA Fall on same level, unspecified, initial encounter; Y93.89 Activity, other specified; Y92.098 Other place in other non-institutional residence as the place of occurrence of the external cause; Y99.9 Unspecified external cause status

== ENCOUNTER → 2021-09-02 | Outpatient (CLI) | payer OTHER | LOC: WOUNDCARE 00:58 | PROVIDERS: ATTEND Nurse Practitioner Family | DX: S51.801A Unspecified open wound of right forearm, initial encounter (principal); S41.111A Laceration without foreign body of right upper arm, initial encounter; E11.9 Type 2 diabetes mellitus without complications; I10 Essential (primary) hypertension; I25.10 Atherosclerotic heart disease of native coronary artery without angina pectoris; J44.9 Chronic obstructive pulmonary disease, unspecified; E78.5 Hyperlipidemia, unspecified; F41.9 Anxiety disorder, unspecified; F32.9 Major depressive disorder, single episode, unspecified; F43.10 Post-traumatic stress disorder, unspecified; Z87.891 Personal history of nicotine dependence; Z90.49 Acquired absence of other specified parts of digestive tract; Z79.84 Long term (current) use of oral hypoglycemic drugs; Z98.890 Other specified postprocedural states; Z79.899 Other long term (current) drug therapy; W19.XXXA Unspecified fall, initial encounter; Y93.89 Activity, other specified; Y92.89 Other specified places as the place of occurrence of the external cause; Y99.8 Other external cause status ==

== ENCOUNTER → 2021-09-07 | Outpatient (CLI) | payer OTHER | LOC: WOUNDCARE 04:05 | PROVIDERS: ATTEND Nurse Practitioner Family | DX: S41.111D Laceration without foreign body of right upper arm, subsequent encounter (principal); E11.9 Type 2 diabetes mellitus without complications; I10 Essential (primary) hypertension; I25.10 Atherosclerotic heart disease of native coronary artery without angina pectoris; J44.9 Chronic obstructive pulmonary disease, unspecified; E78.5 Hyperlipidemia, unspecified; F41.9 Anxiety disorder, unspecified; F32.9 Major depressive disorder, single episode, unspecified; F43.10 Post-traumatic stress disorder, unspecified; Z87.891 Personal history of nicotine dependence; Z90.49 Acquired absence of other specified parts of digestive tract; Z79.84 Long term (current) use of oral hypoglycemic drugs; Z98.890 Other specified postprocedural states; Z79.899 Other long term (current) drug therapy; W19.XXXD Unspecified fall, subsequent encounter ==

== ENCOUNTER → 2021-09-14 | Outpatient (CLI) | payer OTHER | LOC: WOUNDCARE 01:26 | PROVIDERS: ATTEND Nurse Practitioner Family | DX: S41.111D Laceration without foreign body of right upper arm, subsequent encounter (principal); E11.9 Type 2 diabetes mellitus without complications; I10 Essential (primary) hypertension; I25.10 Atherosclerotic heart disease of native coronary artery without angina pectoris; J44.9 Chronic obstructive pulmonary disease, unspecified; E78.5 Hyperlipidemia, unspecified; F41.9 Anxiety disorder, unspecified; F32.9 Major depressive disorder, single episode, unspecified; F43.10 Post-traumatic stress disorder, unspecified; Z87.891 Personal history of nicotine dependence; Z90.49 Acquired absence of other specified parts of digestive tract; Z79.84 Long term (current) use of oral hypoglycemic drugs; Z98.890 Other specified postprocedural states; Z79.899 Other long term (current) drug therapy; W19.XXXD Unspecified fall, subsequent encounter ==

== ENCOUNTER 2021-12-26 21:19 | Emergency (ER) | payer OTHER ==
[~2021-12-26] VITALS: Ht 170.1 cm; Wt 60.3 kg
[2021-12-26 21:31] VITALS: BP 143/57
[2021-12-26 21:41] LABS: BASO % 0.5 % (0.0-1.0); EOS # 0.1 10*3/uL (0.0-0.4); EOS % 2.2 % (1.0-4.0); HEMATOCRIT 31.3 % (37.0-47.0); LYMPH # 1.7 10*3/uL (1.3-4.4); LYMPH % 25.7 % (27.0-41.0); MEAN CELL VOLUME 80.5 fl (81.0-99.0); MEAN CORPUSCULAR HGB 25.4 pg (27.0-31.0); MEAN CORPUSCULAR HGB CONC 31.6 g/dl (33.0-37.0); MONO % 14.6 % (3.0-9.0); NEUT # 3.7 10*3/uL (2.3-7.9); NEUT % 56.7 % (47.0-73.0); PLATELET COUNT AUTOMATED 559 10*3/uL (130-400); RED BLOOD COUNT 3.89 10*6/uL (4.10-5.10); RED CELL DISTRI WIDTH 24.9 % (0-14.5); WHITE BLOOD COUNT 6.5 10*3/uL (4.8-10.8)
[2021-12-26 21:54] LABS: BUN 11 mg/dl (7-24); CHLORIDE 93 mmol/L (98-107); CREATININE 0.67 mg/dL (0.55-1.02); POTASSIUM 4.5 mmol/L (3.5-5.1); SODIUM 130 mmol/L (136-145)
[2021-12-26] MEDS ORDERED: PREDNISONE20 M1 PO (23:23)
== END 2021-12-26 23:42 | disposition home or self-care (01) ==
LOC: ED 21:19
PROVIDERS: Internal Medicine
DX: J44.1 Chronic obstructive pulmonary disease with (acute) exacerbation (principal); D64.9 Anemia, unspecified; E87.1 Hypo-osmolality and hyponatremia; Z91.041 Radiographic dye allergy status; Z88.0 Allergy status to penicillin; Z88.2 Allergy status to sulfonamides; Z88.1 Allergy status to other antibiotic agents; Z88.8 Allergy status to other drugs, medicaments and biological substances; Z79.899 Other long term (current) drug therapy; Z98.890 Other specified postprocedural states; Z90.49 Acquired absence of other specified parts of digestive tract; Z90.89 Acquired absence of other organs; Z87.891 Personal history of nicotine dependence

== ENCOUNTER 2022-03-26 08:53 | Emergency (ER) | payer OTHER ==
[~2022-03-26] VITALS: Ht 170.1 cm; Wt 60.3 kg
[2022-03-26 09:07] VITALS: BP 109/65
[2022-03-26 09:42] LABS: BASO % 0.1 % (0.0-1.0); HEMATOCRIT 31.4 % (37.0-47.0); LYMPH # 1.2 10*3/uL (1.3-4.4); LYMPH % 17.1 % (27.0-41.0); MEAN CELL VOLUME 80.3 fl (81.0-99.0); MEAN CORPUSCULAR HGB 25.3 pg (27.0-31.0); MEAN CORPUSCULAR HGB CONC 31.5 g/dl (33.0-37.0); MEAN PLATELET VOLUME 7.8 fl (9.6-12.3); MONO # 0.9 10*3/uL (0.1-1.0); MONO % 12.3 % (3.0-9.0); NEUT # 4.9 10*3/uL (2.3-7.9); NEUT % 70.2 % (47.0-73.0); PLATELET COUNT AUTOMATED 418 10*3/uL (130-400); RED BLOOD COUNT 3.91 10*6/uL (4.10-5.10); RED CELL DISTRI WIDTH 18.9 % (0-14.5); WHITE BLOOD COUNT 6.9 10*3/uL (4.8-10.8)
[2022-03-26 09:57] LABS: ALKALINE PHOSPHATASE 75 U/L (45-117); BUN 11 mg/dl (7-24); CHLORIDE 98 mmol/L (98-107); CREATININE 0.52 mg/dL (0.55-1.02); POTASSIUM 3.9 mmol/L (3.5-5.1); SGOT/AST 11 IU/L (3-35); SGPT/ALT 12 U/L (12-78); SODIUM 133 mmol/L (136-145); TOTAL PROTEIN 6.3 gm/dL (6.4-8.2)
[2022-03-26] MEDS ORDERED: PREDNISONE10 MG PO (11:04)
[2022-03-26] MEDS ORDERED: VIBRAMYCIN HYC100 MG PO (11:05)
== END 2022-03-26 11:15 | disposition home or self-care (01) ==
LOC: ED 08:53
PROVIDERS: Internal Medicine
DX: J44.1 Chronic obstructive pulmonary disease with (acute) exacerbation (principal); Z91.041 Radiographic dye allergy status; Z88.0 Allergy status to penicillin; Z88.1 Allergy status to other antibiotic agents; Z79.899 Other long term (current) drug therapy; Z90.49 Acquired absence of other specified parts of digestive tract; Z90.89 Acquired absence of other organs; Z98.890 Other specified postprocedural states; Z87.891 Personal history of nicotine dependence

== ENCOUNTER 2022-04-19 16:26 | Emergency (ER) | payer OTHER ==
[~2022-04-19] VITALS: Wt 54.9 kg
[~2022-04-19 16:26] MED LIST changes: +VIBRAMYCIN HYC100 MG PO
[2022-04-19 16:41] VITALS: BP 149/80
[2022-04-19 17:35] LABS: BASO % 0.2 % (0.0-1.0); HEMATOCRIT 36.9 % (37.0-47.0); LYMPH # 1.1 10*3/uL (1.3-4.4); LYMPH % 16.3 % (27.0-41.0); MEAN CELL VOLUME 83.3 fl (81.0-99.0); MEAN CORPUSCULAR HGB 26.4 pg (27.0-31.0); MEAN CORPUSCULAR HGB CONC 31.7 g/dl (33.0-37.0); MEAN PLATELET VOLUME 8.1 fl (9.6-12.3); MONO # 0.6 10*3/uL (0.1-1.0); MONO % 9.3 % (3.0-9.0); NEUT # 4.9 10*3/uL (2.3-7.9); NEUT % 73.9 % (47.0-73.0); PLATELET COUNT AUTOMATED 352 10*3/uL (130-400); RED BLOOD COUNT 4.43 10*6/uL (4.10-5.10); RED CELL DISTRI WIDTH 22.6 % (0-14.5); WHITE BLOOD COUNT 6.6 10*3/uL (4.8-10.8)
[2022-04-19 17:46] LABS: INTERNATIONAL NORM RATIO 0.9 (2.0-3.5)
[2022-04-19 18:00] LABS: ALKALINE PHOSPHATASE 71 U/L (45-117); BUN 10 mg/dl (7-24); CHLORIDE 97 mmol/L (98-107); CREATININE 0.48 mg/dL (0.55-1.02); POTASSIUM 3.7 mmol/L (3.5-5.1); SGOT/AST 15 IU/L (3-35); SGPT/ALT 16 U/L (12-78); SODIUM 133 mmol/L (136-145); TOTAL PROTEIN 6.4 gm/dL (6.4-8.2)
== END 2022-04-19 19:03 | disposition left against medical advice (07) ==
LOC: ED 16:26
PROVIDERS: Physician Assistant
DX: J44.9 Chronic obstructive pulmonary disease, unspecified (principal); R06.02 Shortness of breath; Z87.891 Personal history of nicotine dependence; Z90.89 Acquired absence of other organs; Z98.890 Other specified postprocedural states; Z79.899 Other long term (current) drug therapy; Z91.041 Radiographic dye allergy status; Z88.0 Allergy status to penicillin; Z88.2 Allergy status to sulfonamides; Z88.1 Allergy status to other antibiotic agents; Z99.81 Dependence on supplemental oxygen

== ENCOUNTER 2022-05-06 18:39 | Emergency (ER) | payer OTHER ==
[2022-05-06 19:00] VITALS: BP 145/58
[2022-05-06 19:19] LABS: BASO % 0.3 % (0.0-1.0); HEMATOCRIT 37.6 % (37.0-47.0); LYMPH # 1.2 10*3/uL (1.3-4.4); LYMPH % 17.3 % (27.0-41.0); MEAN CELL VOLUME 83.4 fl (81.0-99.0); MEAN CORPUSCULAR HGB 27.5 pg (27.0-31.0); MEAN PLATELET VOLUME 7.9 fl (9.6-12.3); MONO # 0.9 10*3/uL (0.1-1.0); MONO % 12.3 % (3.0-9.0); NEUT % 69.7 % (47.0-73.0); PLATELET COUNT AUTOMATED 412 10*3/uL (130-400); RED BLOOD COUNT 4.51 10*6/uL (4.10-5.10); RED CELL DISTRI WIDTH 22.4 % (0-14.5); WHITE BLOOD COUNT 7.1 10*3/uL (4.8-10.8)
[2022-05-06 19:34] LABS: ACT PARTIAL THROMBO TIME 31.6 SECONDS (20.0-32.1); ALKALINE PHOSPHATASE 70 U/L (45-117); BUN 8 mg/dl (7-24); CHLORIDE 92 mmol/L (98-107); CREATININE 0.43 mg/dL (0.55-1.02); INTERNATIONAL NORM RATIO 0.9 (2.0-3.5); POTASSIUM 4.4 mmol/L (3.5-5.1); SGOT/AST 12 IU/L (3-35); SGPT/ALT 15 U/L (12-78); SODIUM 129 mmol/L (136-145); TOTAL PROTEIN 6.6 gm/dL (6.4-8.2)
[2022-05-06] MEDS ORDERED: PREDNISONE10 MG PO (20:24)
[2022-05-06] MEDS ORDERED: VIBRA-TAB100 MG PO (20:24)
== END 2022-05-06 21:00 | disposition left against medical advice (07) ==
LOC: ED 18:39
PROVIDERS: Emergency Medicine
DX: J44.1 Chronic obstructive pulmonary disease with (acute) exacerbation (principal); Z91.041 Radiographic dye allergy status; Z88.0 Allergy status to penicillin; Z88.2 Allergy status to sulfonamides; Z88.8 Allergy status to other drugs, medicaments and biological substances; Z91.018 Allergy to other foods; Z91.048 Other nonmedicinal substance allergy status; Z79.899 Other long term (current) drug therapy; Z79.2 Long term (current) use of antibiotics; Z79.82 Long term (current) use of aspirin; Z90.49 Acquired absence of other specified parts of digestive tract; Z98.890 Other specified postprocedural states; Z90.89 Acquired absence of other organs; Z87.891 Personal history of nicotine dependence

== ENCOUNTER 2022-06-22 20:53 | Emergency (ER) | payer OTHER ==
[~2022-06-22] VITALS: Ht 350.5 cm; Wt 54.4 kg
[2022-06-22 22:36] LABS: BASO % 0.1 % (0.0-1.0); HEMATOCRIT 37.5 % (37.0-47.0); LYMPH # 0.9 10*3/uL (1.3-4.4); LYMPH % 10.5 % (27.0-41.0); MEAN CELL VOLUME 88.9 fl (81.0-99.0); MEAN CORPUSCULAR HGB 29.1 pg (27.0-31.0); MEAN CORPUSCULAR HGB CONC 32.8 g/dl (33.0-37.0); MEAN PLATELET VOLUME 8.1 fl (9.6-12.3); MONO # 0.7 10*3/uL (0.1-1.0); MONO % 7.4 % (3.0-9.0); NEUT # 7.2 10*3/uL (2.3-7.9); NEUT % 81.8 % (47.0-73.0); PLATELET COUNT AUTOMATED 408 10*3/uL (130-400); RED BLOOD COUNT 4.22 10*6/uL (4.10-5.10); RED CELL DISTRI WIDTH 17.5 % (0-14.5); WHITE BLOOD COUNT 8.9 10*3/uL (4.8-10.8)
[2022-06-22 22:56] LABS: ACT PARTIAL THROMBO TIME 29.3 SECONDS (20.0-32.1); ALKALINE PHOSPHATASE 51 U/L (45-117); BUN 16 mg/dl (7-24); CHLORIDE 97 mmol/L (98-107); INTERNATIONAL NORM RATIO 0.9 (2.0-3.5); POTASSIUM 3.9 mmol/L (3.5-5.1); SGOT/AST 14 IU/L (3-35); SGPT/ALT 17 U/L (12-78); SODIUM 133 mmol/L (136-145); TOTAL PROTEIN 6.5 gm/dL (6.4-8.2)
[2022-06-23 01:34] VITALS: BP 114/58
[2022-06-23] MEDS ORDERED: PREDNISONE10 M1 PO (01:58)
[2022-06-23] MEDS ORDERED: DOXYCYCLINE HY100 M3 PO (01:58)
[2022-06-24] MEDS ORDERED: PROTONIX40 MG PO (22:04)
[2022-06-24] MEDS ORDERED: PRAVASTATIN SOD40 MG PO (22:04)
[2022-06-24] MEDS ORDERED: [UNRECOGNIZED DRUG - REMARK] PO (22:05)
[2022-06-24] MEDS ORDERED: VIBRAMYCIN100 MG PO (23:49)
[2022-06-24] MEDS ORDERED: PREDNISONE20 M1 PO (23:49)
== END 2022-06-23 02:05 | disposition home or self-care (01) ==
LOC: ED 20:53
PROVIDERS: Emergency Medicine
DX: R07.89 Other chest pain (principal); J44.1 Chronic obstructive pulmonary disease with (acute) exacerbation; I25.10 Atherosclerotic heart disease of native coronary artery without angina pectoris; I10 Essential (primary) hypertension; Z90.49 Acquired absence of other specified parts of digestive tract; Z98.890 Other specified postprocedural states; Z79.82 Long term (current) use of aspirin; Z91.041 Radiographic dye allergy status; Z88.0 Allergy status to penicillin; Z88.2 Allergy status to sulfonamides; Z88.1 Allergy status to other antibiotic agents

== ENCOUNTER 2022-06-24 21:55 | Emergency (ER) | payer OTHER ==
[~2022-06-24 21:55] MED LIST changes: +DOXYCYCLINE HY100 M3 PO
[2022-06-24] MEDS ORDERED: PROTONIX40 MG PO (22:04)
[2022-06-24] MEDS ORDERED: PRAVASTATIN SOD40 MG PO (22:04)
[2022-06-24] MEDS ORDERED: [UNRECOGNIZED DRUG - REMARK] PO (22:05)
[2022-06-24 22:09] VITALS: BP 143/70
[2022-06-24 22:48] LABS: BASO % 0.3 % (0.0-1.0); HEMATOCRIT 35.7 % (37.0-47.0); LYMPH # 1.1 10*3/uL (1.3-4.4); LYMPH % 9.3 % (27.0-41.0); MEAN CELL VOLUME 87.9 fl (81.0-99.0); MEAN CORPUSCULAR HGB 29.3 pg (27.0-31.0); MEAN CORPUSCULAR HGB CONC 33.3 g/dl (33.0-37.0); MONO # 1.3 10*3/uL (0.1-1.0); NEUT # 9.6 10*3/uL (2.3-7.9); PLATELET COUNT AUTOMATED 404 10*3/uL (130-400); RED BLOOD COUNT 4.06 10*6/uL (4.10-5.10); RED CELL DISTRI WIDTH 17.2 % (0-14.5); WHITE BLOOD COUNT 12.2 10*3/uL (4.8-10.8)
[2022-06-24 23:05] LABS: ACT PARTIAL THROMBO TIME 24.9 SECONDS (20.0-32.1); INTERNATIONAL NORM RATIO 0.9 (2.0-3.5)
[2022-06-24 23:07] LABS: ALKALINE PHOSPHATASE 47 U/L (45-117); BUN 19 mg/dl (7-24); CHLORIDE 101 mmol/L (98-107); CREATININE 0.54 mg/dL (0.55-1.02); LIPASE 66 U/L (73-393); POTASSIUM 3.7 mmol/L (3.5-5.1); SGOT/AST 25 IU/L (3-35); SGPT/ALT 33 U/L (12-78); SODIUM 135 mmol/L (136-145); TOTAL PROTEIN 6.4 gm/dL (6.4-8.2)
[2022-06-24] MEDS ORDERED: PREDNISONE20 M1 PO (23:49)
[2022-06-24] MEDS ORDERED: VIBRAMYCIN100 MG PO (23:49)
[2022-06-25] MEDS ORDERED: PREDNISONE50 MG PO (14:36)
[2022-06-25] MEDS ORDERED: VIBRAMYCIN100 MG PO (14:36)
== END 2022-06-25 04:39 | disposition home or self-care (01) ==
LOC: ED 21:55
PROVIDERS: Family Medicine
DX: J44.1 Chronic obstructive pulmonary disease with (acute) exacerbation (principal); Z20.822 Contact with and (suspected) exposure to COVID-19; Z91.041 Radiographic dye allergy status; Z88.0 Allergy status to penicillin; Z88.2 Allergy status to sulfonamides; Z88.1 Allergy status to other antibiotic agents; Z88.8 Allergy status to other drugs, medicaments and biological substances; Z91.018 Allergy to other foods; Z79.899 Other long term (current) drug therapy; Z79.2 Long term (current) use of antibiotics; Z90.49 Acquired absence of other specified parts of digestive tract; Z98.890 Other specified postprocedural states; Z90.89 Acquired absence of other organs; Z87.891 Personal history of nicotine dependence

== ENCOUNTER 2022-08-25 22:59 | Emergency (ER) | payer OTHER ==
[~2022-08-25] VITALS: Ht 157.4 cm; Wt 46.7 kg
[~2022-08-25 22:59] MED LIST changes: +PROTONIX40 MG PO; +[UNRECOGNIZED DRUG - REMARK] PO
[2022-08-25 23:45] LABS: BASO % 0.3 % (0.0-1.0); HEMATOCRIT 35.3 % (37.0-47.0); LYMPH # 1.8 10*3/uL (1.3-4.4); LYMPH % 20.9 % (27.0-41.0); MEAN CELL VOLUME 90.3 fl (81.0-99.0); MEAN CORPUSCULAR HGB 28.6 pg (27.0-31.0); MEAN CORPUSCULAR HGB CONC 31.7 g/dl (33.0-37.0); MEAN PLATELET VOLUME 8.3 fl (9.6-12.3); MONO % 11.2 % (3.0-9.0); NEUT # 5.8 10*3/uL (2.3-7.9); PLATELET COUNT AUTOMATED 498 10*3/uL (130-400); RED BLOOD COUNT 3.91 10*6/uL (4.10-5.10); RED CELL DISTRI WIDTH 15.5 % (0-14.5); WHITE BLOOD COUNT 8.6 10*3/uL (4.8-10.8)
[2022-08-25 23:58] LABS: ACT PARTIAL THROMBO TIME 27.3 SECONDS (20.0-32.1); INTERNATIONAL NORM RATIO 0.9 (2.0-3.5)
[2022-08-26 00:08] LABS: ALKALINE PHOSPHATASE 50 U/L (46-116); BUN 15 mg/dl (9-23); CHLORIDE 92 mmol/L (98-107); CREATININE 0.68 mg/dL (0.55-1.02); POTASSIUM 3.7 mmol/L (3.4-5.1); SGPT/ALT 12 U/L (10-49); SODIUM 132 mmol/L (136-145)
[2022-08-26 04:42] VITALS: BP 117/56
[2022-08-26] MEDS ORDERED: PREDNISONE20 M1 PO (04:44)
== END 2022-08-26 06:52 | disposition home or self-care (01) ==
LOC: ED 22:59
PROVIDERS: Internal Medicine
DX: J44.1 Chronic obstructive pulmonary disease with (acute) exacerbation (principal); E87.8 Other disorders of electrolyte and fluid balance, not elsewhere classified; D64.9 Anemia, unspecified; Z91.040 Latex allergy status; Z88.0 Allergy status to penicillin; Z88.2 Allergy status to sulfonamides; Z88.1 Allergy status to other antibiotic agents; Z91.018 Allergy to other foods; Z90.49 Acquired absence of other specified parts of digestive tract; Z90.89 Acquired absence of other organs; Z98.890 Other specified postprocedural states; Z20.822 Contact with and (suspected) exposure to COVID-19

== ENCOUNTER 2022-09-07 09:00 | Inpatient (IN) | payer OTHER ==
[~2022-09-07] VITALS: Ht 167.6 cm; Wt 53.7 kg
[2022-09-07 09:20] VITALS: BP 121/51
[2022-09-07 09:32] LABS: HEMATOCRIT 36.9 % (37.0-47.0); MEAN CORPUSCULAR HGB 28.2 pg (27.0-31.0); MEAN CORPUSCULAR HGB CONC 32.8 g/dl (33.0-37.0); MEAN PLATELET VOLUME 8.4 fl (9.6-12.3); PLATELET COUNT AUTOMATED 512 10*3/uL (130-400); RED BLOOD COUNT 4.29 10*6/uL (4.10-5.10); RED CELL DISTRI WIDTH 15.2 % (0-14.5); WHITE BLOOD COUNT 19.8 10*3/uL (4.8-10.8)
[2022-09-07 09:33] LABS: MANUAL DIFF REFLEX YES
[2022-09-07 09:43] LABS: ACT PARTIAL THROMBO TIME 25.3 SECONDS (20.0-32.1); INTERNATIONAL NORM RATIO 0.9 (2.0-3.5)
[2022-09-07 09:45] LABS: LIPASE 24 U/L (12-53)
[2022-09-07 09:47] LABS: ALKALINE PHOSPHATASE 45 U/L (46-116); BUN 12 mg/dl (9-23); CHLORIDE 86 mmol/L (98-107); POTASSIUM 3.6 mmol/L (3.4-5.1); SGPT/ALT 19 U/L (10-49); SODIUM 125 mmol/L (136-145); TOTAL PROTEIN 6.2 gm/dL (6.0-8.0)
[2022-09-07 09:56] LABS: PLATELET SUFFICIENCY HIGH (NORMAL); TOTAL CELLS COUNTED 100 #CELLS
[2022-09-07 11:08] VITALS: BP 119/56
[2022-09-07] MEDS ORDERED: BUSPAR5 MG PO (11:53)
[2022-09-07] MEDS ORDERED: LEVOCETIRIZINE D5 M1 PO (11:55)
[2022-09-07 13:10] LABS: BILIRUBIN Negative (Negative); BLOOD Negative (Negative); CLARITY Turbid (Clear); COLOR Yellow (Yellow); GLUCOSE Negative (Negative); KETONE Negative (Negative); LEUKO ESTERASE Trace (Negative); NITRITE Negative (Negative); UROBILINOGEN 0.2 E.U./dl (0.0-1.0)
[2022-09-07 13:17] LABS: PH 8.5 (4.5-8.0)
[2022-09-07 13:23] LABS: BACTERIA 2+
[2022-09-07 14:35] VITALS: BP 119/58
[2022-09-07 16:00] VITALS: BP 135/59
[2022-09-07] MEDS ORDERED: PROVENTIL HFA6.7 GM INH (16:22)
[2022-09-07] MEDS ORDERED: DILTIAZEM CD240 MG PO (16:57)
[2022-09-07] MEDS ORDERED: OMEPRAZOLE40 MG PO (17:23)
[2022-09-07 20:00] VITALS: BP 123/54
[2022-09-08] VITALS: BP 108/58
[2022-09-08 06:35] LABS: ALKALINE PHOSPHATASE 40 U/L (46-116); BUN 12 mg/dl (9-23); CHLORIDE 89 mmol/L (98-107); CHOLESTEROL 191 mg/dL (<200); CREATININE 0.49 mg/dL (0.55-1.02); FREE T4 1.38 ng/dl (0.89-1.76); LDL CHOLESTEROL 84 mg/dL (9-159); POTASSIUM 3.8 mmol/L (3.4-5.1); SGPT/ALT 14 U/L (10-49); SODIUM 129 mmol/L (136-145); THYROID STIM HORMONE (HS) 0.353 uIU/ml (0.550-4.780); TOTAL PROTEIN 5.7 gm/dL (6.0-8.0); TRIGLYCERIDES 55 mg/dl (<150)
[2022-09-08 06:39] LABS: HEMATOCRIT 33.4 % (37.0-47.0); MEAN CELL VOLUME 84.1 fl (81.0-99.0); MEAN CORPUSCULAR HGB CONC 33.2 g/dl (33.0-37.0); MEAN PLATELET VOLUME 8.7 fl (9.6-12.3); PLATELET COUNT AUTOMATED 510 10*3/uL (130-400); RED BLOOD COUNT 3.97 10*6/uL (4.10-5.10); RED CELL DISTRI WIDTH 15.1 % (0-14.5); WHITE BLOOD COUNT 11.9 10*3/uL (4.8-10.8)
[2022-09-08 06:44] LABS: MANUAL DIFF REFLEX YES
[2022-09-08 06:49] LABS: ACT PARTIAL THROMBO TIME 25.7 SECONDS (20.0-32.1); INTERNATIONAL NORM RATIO 0.9 (2.0-3.5)
[2022-09-08 07:12] LABS: PLATELET SUFFICIENCY HIGH (NORMAL); TOTAL CELLS COUNTED 100 #CELLS
[2022-09-08 08:00] VITALS: BP 117/55
[2022-09-08 12:00] VITALS: BP 124/46
[2022-09-08 16:00] VITALS: BP 123/50
[2022-09-08 20:00] VITALS: BP 138/51
[2022-09-09] VITALS: BP 122/55
[2022-09-09 07:14] LABS: HEMATOCRIT 35.2 % (37.0-47.0); MEAN CORPUSCULAR HGB 27.3 pg (27.0-31.0); MEAN CORPUSCULAR HGB CONC 32.1 g/dl (33.0-37.0); MEAN PLATELET VOLUME 8.2 fl (9.6-12.3); PLATELET COUNT AUTOMATED 488 10*3/uL (130-400); RED BLOOD COUNT 4.14 10*6/uL (4.10-5.10); RED CELL DISTRI WIDTH 15.2 % (0-14.5); WHITE BLOOD COUNT 22.7 10*3/uL (4.8-10.8)
[2022-09-09 07:24] LABS: MANUAL DIFF REFLEX YES
[2022-09-09 07:31] LABS: BUN 14 mg/dl (9-23); CHLORIDE 91 mmol/L (98-107); POTASSIUM 3.7 mmol/L (3.4-5.1); SODIUM 130 mmol/L (136-145)
[2022-09-09 07:49] LABS: PLATELET SUFFICIENCY HIGH (NORMAL); TOTAL CELLS COUNTED 100 #CELLS
[2022-09-09 08:00] VITALS: BP 109/56
[2022-09-09] MEDS ORDERED: PREDNISONE10 MG PO (09:57)
[2022-09-09] MEDS ORDERED: VIBRAMYCIN100 MG PO (09:57)
[2022-09-09] MEDS ORDERED: MUCINEX ER600 MG PO (09:57)
== END 2022-09-09 11:45 | disposition home or self-care (01) | DRG 191 ==
LOC: ED 09:00 → 5E 11:15 → EDHOLD 11:15 → 5E 13:49
PROVIDERS: Emergency Medicine; Internal Medicine; Registered Nurse; ADMIT Internal Medicine; ATTEND Internal Medicine
DX: J44.1 Chronic obstructive pulmonary disease with (acute) exacerbation (principal); E44.0 Moderate protein-calorie malnutrition; E87.1 Hypo-osmolality and hyponatremia; I50.30 Unspecified diastolic (congestive) heart failure; J96.10 Chronic respiratory failure, unspecified whether with hypoxia or hypercapnia; Z68.1 Body mass index [BMI] 19.9 or less, adult; F41.1 Generalized anxiety disorder; F32.9 Major depressive disorder, single episode, unspecified; E78.5 Hyperlipidemia, unspecified; I25.10 Atherosclerotic heart disease of native coronary artery without angina pectoris; Z66 Do not resuscitate; E11.9 Type 2 diabetes mellitus without complications; G47.00 Insomnia, unspecified; I11.0 Hypertensive heart disease with heart failure; F17.210 Nicotine dependence, cigarettes, uncomplicated; M54.2 Cervicalgia; Z99.81 Dependence on supplemental oxygen; Z88.0 Allergy status to penicillin; Z88.8 Allergy status to other drugs, medicaments and biological substances; Z88.1 Allergy status to other antibiotic agents; Z91.041 Radiographic dye allergy status; Z91.018 Allergy to other foods; Z90.49 Acquired absence of other specified parts of digestive tract; Z83.6 Family history of other diseases of the respiratory system; Z81.1 Family history of alcohol abuse and dependence; Z83.3 Family history of diabetes mellitus; Z51.5 Encounter for palliative care

== ENCOUNTER 2022-12-16 01:01 | Emergency (ER) | payer OTHER ==
[~2022-12-16] VITALS: Wt 58.5 kg
[~2022-12-16 01:01] MED LIST changes: +BUSPAR5 MG PO; +CARDIZEM CD180 MG PO; +DILTIAZEM CD240 MG PO; +LEVOCETIRIZINE D5 M1 PO; +OMEPRAZOLE40 MG PO; +ZOLOFT50 MG PO
[2022-12-16 01:06] VITALS: BP 142/86
[2022-12-16 01:28] LABS: BASO % 0.1 % (0.0-1.0); HEMATOCRIT 35.3 % (37.0-47.0); LYMPH # 0.7 10*3/uL (1.3-4.4); LYMPH % 7.8 % (27.0-41.0); MEAN CELL VOLUME 91.2 fl (81.0-99.0); MEAN CORPUSCULAR HGB 28.7 pg (27.0-31.0); MEAN CORPUSCULAR HGB CONC 31.4 g/dl (33.0-37.0); MEAN PLATELET VOLUME 8.5 fl (9.6-12.3); MONO # 0.8 10*3/uL (0.1-1.0); MONO % 10.1 % (3.0-9.0); NEUT # 6.8 10*3/uL (2.3-7.9); NEUT % 81.5 % (47.0-73.0); PLATELET COUNT AUTOMATED 396 10*3/uL (130-400); RED BLOOD COUNT 3.87 10*6/uL (4.10-5.10); RED CELL DISTRI WIDTH 19.5 % (0-14.5); WHITE BLOOD COUNT 8.3 10*3/uL (4.8-10.8)
[2022-12-16 01:44] LABS: ALKALINE PHOSPHATASE 42 U/L (46-116); BUN 16 mg/dl (9-23); CHLORIDE 102 mmol/L (98-107); POTASSIUM 3.9 mmol/L (3.4-5.1); SGPT/ALT 14 U/L (10-49); TOTAL PROTEIN 6.2 gm/dL (6.0-8.0)
== END 2022-12-16 04:56 | disposition home or self-care (01) ==
LOC: ED 01:01
PROVIDERS: Emergency Medicine
DX: R07.89 Other chest pain (principal); K21.9 Gastro-esophageal reflux disease without esophagitis; J44.9 Chronic obstructive pulmonary disease, unspecified; I10 Essential (primary) hypertension; E11.9 Type 2 diabetes mellitus without complications; J45.909 Unspecified asthma, uncomplicated; F32.A Depression, unspecified; Z88.7 Allergy status to serum and vaccine; Z91.041 Radiographic dye allergy status; Z88.0 Allergy status to penicillin; Z88.1 Allergy status to other antibiotic agents; Z88.2 Allergy status to sulfonamides; Z91.018 Allergy to other foods; Z88.8 Allergy status to other drugs, medicaments and biological substances; Z90.49 Acquired absence of other specified parts of digestive tract; Z90.89 Acquired absence of other organs; Z98.890 Other specified postprocedural states; F17.200 Nicotine dependence, unspecified, uncomplicated

== ENCOUNTER → 2023-01-18 | Outpatient (CLI) | payer OTHER ==
[2023-01-18 16:21] LABS: BASO % 0.1 % (0.0-1.0); HEMATOCRIT 38.9 % (37.0-47.0); LYMPH # 1.2 10*3/uL (1.3-4.4); LYMPH % 14.4 % (27.0-41.0); MEAN CELL VOLUME 91.7 fl (81.0-99.0); MEAN CORPUSCULAR HGB 29.5 pg (27.0-31.0); MEAN CORPUSCULAR HGB CONC 32.1 g/dl (33.0-37.0); MEAN PLATELET VOLUME 8.3 fl (9.6-12.3); MONO # 0.9 10*3/uL (0.1-1.0); MONO % 10.5 % (3.0-9.0); NEUT # 6.2 10*3/uL (2.3-7.9); NEUT % 74.5 % (47.0-73.0); PLATELET COUNT AUTOMATED 396 10*3/uL (130-400); RED BLOOD COUNT 4.24 10*6/uL (4.10-5.10); RED CELL DISTRI WIDTH 17.2 % (0-14.5); WHITE BLOOD COUNT 8.3 10*3/uL (4.8-10.8)
[2023-01-18 17:42] LABS: BF LYMPHOCYTES 2 %; BF MACROPHAGES 84 %; BF NEUTROPHILS 14 %
[2023-01-19 15:07] LABS: ACID FAST SPEC PROCESSING Direct Inoculation (.)
== END | disposition home or self-care (01) ==
LOC: LAB 15:45
PROVIDERS: ATTEND Orthopaedic Surgery
DX: M25.411 Effusion, right shoulder (principal)

== ENCOUNTER → 2023-01-26 | Outpatient (CLI) | payer OTHER ==
[2023-01-26 15:18] LABS: BASO % 0.1 % (0.0-1.0); HEMATOCRIT 39.6 % (37.0-47.0); LYMPH # 0.4 10*3/uL (1.3-4.4); LYMPH % 4.7 % (27.0-41.0); MEAN CELL VOLUME 90.4 fl (81.0-99.0); MEAN CORPUSCULAR HGB CONC 32.1 g/dl (33.0-37.0); MEAN PLATELET VOLUME 8.7 fl (9.6-12.3); MONO # 0.5 10*3/uL (0.1-1.0); MONO % 5.5 % (3.0-9.0); NEUT # 7.7 10*3/uL (2.3-7.9); PLATELET COUNT AUTOMATED 497 10*3/uL (130-400); RED BLOOD COUNT 4.38 10*6/uL (4.10-5.10); RED CELL DISTRI WIDTH 16.5 % (0-14.5); WHITE BLOOD COUNT 8.6 10*3/uL (4.8-10.8)
[2023-01-27 09:07] LABS: HBSAG Negative (Negative); HEP B CORE AB, IGM Negative (Negative); HEPATITIS C ANTIBODY Non Reactive (Non Reactive)
[2023-01-27 14:07] LABS: CCP ANTIBODIES IGG/IGA 3 units (0-19)
[2023-01-29 13:06] LABS: ANTI-RNP ANTIBODIES <0.2 AI (0.0-0.9)
[2023-01-30 01:06] LABS: LUPUS DRVVT 35.6 sec (0.0-47.0); PTT-LA 34.8 sec (0.0-43.5)
[2023-01-30 02:06] LABS: LUPUS REFLEX INTERPRETATION Comment: (.)
[2023-02-02 16:08] LABS: HLA-B27 ANTIGEN Negative (.)
== END | disposition home or self-care (01) ==
LOC: LAB 14:37
PROVIDERS: ATTEND Orthopaedic Surgery
DX: R53.83 Other fatigue (principal); M25.519 Pain in unspecified shoulder

== ENCOUNTER → 2023-02-19 | Outpatient (CLI) | payer OTHER | END | disposition home or self-care (01) | LOC: MRI 10:00 | PROVIDERS: ATTEND Orthopaedic Surgery | DX: S46.911A Strain of unspecified muscle, fascia and tendon at shoulder and upper arm level, right arm, initial encounter (principal); M19.011 Primary osteoarthritis, right shoulder; M75.121 Complete rotator cuff tear or rupture of right shoulder, not specified as traumatic; M25.411 Effusion, right shoulder; X58.XXXA Exposure to other specified factors, initial encounter; Y93.89 Activity, other specified; Y92.89 Other specified places as the place of occurrence of the external cause; Y99.8 Other external cause status ==

== ENCOUNTER 2023-05-14 20:11 | Emergency (ER) | payer OTHER ==
[~2023-05-14] VITALS: Ht 167.6 cm; Wt 68.0 kg
[2023-05-14] MEDS ORDERED: PREDNISONE20 M1 PO (22:23)
[2023-05-14 22:41] VITALS: BP 136/70
== END 2023-05-14 22:34 | disposition home or self-care (01) ==
LOC: ED 20:11
DX: J44.1 Chronic obstructive pulmonary disease with (acute) exacerbation (principal); K21.9 Gastro-esophageal reflux disease without esophagitis; I10 Essential (primary) hypertension; E11.9 Type 2 diabetes mellitus without complications; F32.A Depression, unspecified; Z91.041 Radiographic dye allergy status; Z88.0 Allergy status to penicillin; Z88.1 Allergy status to other antibiotic agents; Z88.8 Allergy status to other drugs, medicaments and biological substances; Z91.018 Allergy to other foods; Z90.49 Acquired absence of other specified parts of digestive tract; Z90.89 Acquired absence of other organs; Z98.890 Other specified postprocedural states; F17.200 Nicotine dependence, unspecified, uncomplicated

== ENCOUNTER 2023-05-17 09:19 | Emergency (ER) | payer OTHER ==
[~2023-05-17] VITALS: Ht 167.6 cm; Wt 50.8 kg
[2023-05-17 09:54] LABS: BASO % 0.1 % (0.0-1.0); LYMPH # 1.2 10*3/uL (1.3-4.4); LYMPH % 9.5 % (27.0-41.0); MEAN CELL VOLUME 88.1 fl (81.0-99.0); MEAN CORPUSCULAR HGB CONC 31.8 g/dl (33.0-37.0); MEAN PLATELET VOLUME 7.9 fl (9.6-12.3); MONO # 1.4 10*3/uL (0.1-1.0); MONO % 11.2 % (3.0-9.0); NEUT % 78.6 % (47.0-73.0); PLATELET COUNT AUTOMATED 491 10*3/uL (130-400); RED BLOOD COUNT 4.54 10*6/uL (4.10-5.10); WHITE BLOOD COUNT 12.7 10*3/uL (4.8-10.8)
[2023-05-17 10:06] LABS: ACT PARTIAL THROMBO TIME 24.9 SECONDS (20.0-32.1)
[2023-05-17 10:17] LABS: ALKALINE PHOSPHATASE 51 U/L (46-116); BUN 11 mg/dl (9-23); CHLORIDE 95 mmol/L (98-107); LIPASE 25 U/L (12-53); POTASSIUM 3.8 mmol/L (3.4-5.1); SGPT/ALT 18 U/L (10-49); TOTAL PROTEIN 6.5 gm/dL (6.0-8.0)
[2023-05-17 13:10] VITALS: BP 138/55
== END 2023-05-17 13:13 | disposition short-term general hospital (02) ==
LOC: ED 09:19
PROVIDERS: Emergency Medicine
DX: J44.1 Chronic obstructive pulmonary disease with (acute) exacerbation (principal); F17.210 Nicotine dependence, cigarettes, uncomplicated; Z88.7 Allergy status to serum and vaccine; Z91.041 Radiographic dye allergy status; Z88.0 Allergy status to penicillin; Z88.2 Allergy status to sulfonamides; Z88.1 Allergy status to other antibiotic agents; Z88.8 Allergy status to other drugs, medicaments and biological substances; Z91.018 Allergy to other foods; Z79.899 Other long term (current) drug therapy; Z90.49 Acquired absence of other specified parts of digestive tract; Z98.890 Other specified postprocedural states; Z90.89 Acquired absence of other organs

== ENCOUNTER → 2023-05-28 | Outpatient (CLI) | payer OTHER ==
[2023-05-28 18:25] LABS: BF MESOTHELIALS 4 %; BF NEUTROPHILS 19 %
[2023-05-28 18:26] LABS: BF LYMPHOCYTES 20 %; BF MACROPHAGES 57 %
[2023-05-29 15:07] LABS: ACID FAST SPEC PROCESSING Direct Inoculation (.)
== END | disposition home or self-care (01) ==
LOC: LAB 15:40
PROVIDERS: ATTEND Orthopaedic Surgery
DX: M25.411 Effusion, right shoulder (principal)

== ENCOUNTER 2023-08-04 15:20 | Emergency (ER) | payer OTHER ==
[~2023-08-04] VITALS: Ht 165.1 cm; Wt 46.3 kg
[2023-08-04 15:43] VITALS: BP 116/50
[2023-08-04 16:59] LABS: HEMATOCRIT 39.7 % (37.0-47.0); MEAN CELL VOLUME 89.4 fl (81.0-99.0); MEAN CORPUSCULAR HGB 28.6 pg (27.0-31.0); MEAN PLATELET VOLUME 8.6 fl (9.6-12.3); PLATELET COUNT AUTOMATED 323 10*3/uL (130-400); RED BLOOD COUNT 4.44 10*6/uL (4.10-5.10); RED CELL DISTRI WIDTH 23.3 % (0-14.5); WHITE BLOOD COUNT 8.8 10*3/uL (4.8-10.8)
[2023-08-04 17:01] LABS: MANUAL DIFF REFLEX YES
[2023-08-04 17:12] LABS: ACT PARTIAL THROMBO TIME 27.2 SECONDS (20.0-32.1)
[2023-08-04 17:18] LABS: ALKALINE PHOSPHATASE 66 U/L (46-116); BUN 15 mg/dl (9-23); CHLORIDE 96 mmol/L (98-107); POTASSIUM 4.5 mmol/L (3.4-5.1); SGPT/ALT 23 U/L (5-49); TOTAL PROTEIN 5.7 gm/dL (6.0-8.0)
[2023-08-04 17:30] LABS: PLATELET SUFFICIENCY NORMAL (NORMAL); TOTAL CELLS COUNTED 100 #CELLS
[2023-08-04 17:31] LABS: POLYCHROMASIA SLIGHT
[2023-08-04] MEDS ORDERED: HYDROCODONE-AC1 EAC1 PO (18:17)
[2023-08-04] MEDS ORDERED: LASIX20 MG PO (18:17)
== END 2023-08-04 18:40 | disposition home or self-care (01) ==
LOC: ED 15:20
PROVIDERS: Emergency Medicine
DX: S41.111A Laceration without foreign body of right upper arm, initial encounter (principal); E11.65 Type 2 diabetes mellitus with hyperglycemia; I95.1 Orthostatic hypotension; M79.89 Other specified soft tissue disorders; R60.0 Localized edema; J44.9 Chronic obstructive pulmonary disease, unspecified; I11.0 Hypertensive heart disease with heart failure; I50.9 Heart failure, unspecified; E78.5 Hyperlipidemia, unspecified; F32.A Depression, unspecified; F41.9 Anxiety disorder, unspecified; F17.210 Nicotine dependence, cigarettes, uncomplicated; Z88.7 Allergy status to serum and vaccine; Z91.041 Radiographic dye allergy status; Z88.0 Allergy status to penicillin; Z88.2 Allergy status to sulfonamides; Z88.8 Allergy status to other drugs, medicaments and biological substances; Z79.899 Other long term (current) drug therapy; Z90.49 Acquired absence of other specified parts of digestive tract; Z90.89 Acquired absence of other organs; W17.89XA Other fall from one level to another, initial encounter; Y93.89 Activity, other specified; Y92.090 Kitchen in other non-institutional residence as the place of occurrence of the external cause; Y99.8 Other external cause status

== ENCOUNTER → 2023-08-06 | Outpatient (CLI) | payer OTHER ==
[~2023-08-06] MED LIST changes: +HYDROCODONE-AC1 EAC1 PO
== END | disposition home or self-care (01) ==
LOC: WOUNDCARE 08:41
PROVIDERS: ATTEND Nurse Practitioner Family
DX: S51.811A Laceration without foreign body of right forearm, initial encounter (principal); S41.111A Laceration without foreign body of right upper arm, initial encounter; S61.512A Laceration without foreign body of left wrist, initial encounter; S61.451A Open bite of right hand, initial encounter; L98.9 Disorder of the skin and subcutaneous tissue, unspecified; I25.10 Atherosclerotic heart disease of native coronary artery without angina pectoris; E78.5 Hyperlipidemia, unspecified; I11.0 Hypertensive heart disease with heart failure; I50.9 Heart failure, unspecified; E11.9 Type 2 diabetes mellitus without complications; R55 Syncope and collapse; R23.8 Other skin changes; J44.9 Chronic obstructive pulmonary disease, unspecified; F32.9 Major depressive disorder, single episode, unspecified; F41.9 Anxiety disorder, unspecified; Z87.891 Personal history of nicotine dependence; Z90.49 Acquired absence of other specified parts of digestive tract; X58.XXXA Exposure to other specified factors, initial encounter; Y93.89 Activity, other specified; Y92.89 Other specified places as the place of occurrence of the external cause; Y99.8 Other external cause status

== ENCOUNTER → 2023-08-08 | Outpatient (CLI) | payer OTHER | LOC: WOUNDCARE 13:13 | PROVIDERS: ATTEND Nurse Practitioner Family | DX: S41.111D Laceration without foreign body of right upper arm, subsequent encounter (principal); S51.811D Laceration without foreign body of right forearm, subsequent encounter; S61.512D Laceration without foreign body of left wrist, subsequent encounter; L98.9 Disorder of the skin and subcutaneous tissue, unspecified; S61.451D Open bite of right hand, subsequent encounter; I25.10 Atherosclerotic heart disease of native coronary artery without angina pectoris; E78.5 Hyperlipidemia, unspecified; I11.0 Hypertensive heart disease with heart failure; I50.9 Heart failure, unspecified; R55 Syncope and collapse; J44.9 Chronic obstructive pulmonary disease, unspecified; F32.9 Major depressive disorder, single episode, unspecified; F41.9 Anxiety disorder, unspecified; Z87.891 Personal history of nicotine dependence; Z90.49 Acquired absence of other specified parts of digestive tract; W54.0XXD Bitten by dog, subsequent encounter; X58.XXXD Exposure to other specified factors, subsequent encounter ==

== ENCOUNTER → 2023-08-15 | Outpatient (CLI) | payer OTHER | END | disposition home or self-care (01) | LOC: WOUNDCARE 01:32 | PROVIDERS: ATTEND Nurse Practitioner Family | DX: S51.811D Laceration without foreign body of right forearm, subsequent encounter (principal); S41.111D Laceration without foreign body of right upper arm, subsequent encounter; S61.512D Laceration without foreign body of left wrist, subsequent encounter; S61.451D Open bite of right hand, subsequent encounter; I25.10 Atherosclerotic heart disease of native coronary artery without angina pectoris; E11.9 Type 2 diabetes mellitus without complications; E78.5 Hyperlipidemia, unspecified; I11.0 Hypertensive heart disease with heart failure; I50.9 Heart failure, unspecified; J44.9 Chronic obstructive pulmonary disease, unspecified; F32.9 Major depressive disorder, single episode, unspecified; F41.9 Anxiety disorder, unspecified; Z87.891 Personal history of nicotine dependence; Z90.49 Acquired absence of other specified parts of digestive tract; W54.0XXD Bitten by dog, subsequent encounter; W19.XXXD Unspecified fall, subsequent encounter ==

== ENCOUNTER → 2023-08-21 | Outpatient (CLI) | payer OTHER | END | disposition home or self-care (01) | LOC: WOUNDCARE 00:50 | PROVIDERS: ATTEND Nurse Practitioner Family | DX: S51.811D Laceration without foreign body of right forearm, subsequent encounter (principal); S61.512D Laceration without foreign body of left wrist, subsequent encounter; S41.111D Laceration without foreign body of right upper arm, subsequent encounter; S81.002D Unspecified open wound, left knee, subsequent encounter; L98.9 Disorder of the skin and subcutaneous tissue, unspecified; R23.8 Other skin changes; R55 Syncope and collapse; I25.10 Atherosclerotic heart disease of native coronary artery without angina pectoris; E78.5 Hyperlipidemia, unspecified; I11.0 Hypertensive heart disease with heart failure; I50.9 Heart failure, unspecified; J44.9 Chronic obstructive pulmonary disease, unspecified; F41.9 Anxiety disorder, unspecified; F32.9 Major depressive disorder, single episode, unspecified; Z87.891 Personal history of nicotine dependence; Z90.49 Acquired absence of other specified parts of digestive tract; W19.XXXD Unspecified fall, subsequent encounter ==

== ENCOUNTER → 2023-08-30 | Outpatient (CLI) | payer OTHER | END | disposition home or self-care (01) | LOC: WOUNDCARE 00:56 | PROVIDERS: ATTEND Nurse Practitioner Family | DX: S51.811D Laceration without foreign body of right forearm, subsequent encounter (principal); S41.111D Laceration without foreign body of right upper arm, subsequent encounter; L98.9 Disorder of the skin and subcutaneous tissue, unspecified; R23.8 Other skin changes; R55 Syncope and collapse; I25.10 Atherosclerotic heart disease of native coronary artery without angina pectoris; E78.5 Hyperlipidemia, unspecified; I11.0 Hypertensive heart disease with heart failure; I50.9 Heart failure, unspecified; J44.9 Chronic obstructive pulmonary disease, unspecified; F41.9 Anxiety disorder, unspecified; F32.9 Major depressive disorder, single episode, unspecified; Z87.891 Personal history of nicotine dependence; Z90.49 Acquired absence of other specified parts of digestive tract; X58.XXXD Exposure to other specified factors, subsequent encounter ==

== ENCOUNTER → 2024-05-30 | Outpatient (CLI) | payer OTHER ==
[~2024-05-30] MED LIST changes: +ALBUTEROL2.5 MG/0.5 INH; +ARTHRITIS PAIN150 G1 T; +BUSPIRONE HCL10 MG PO; +CARDIZEM CD240 M1 PO; +DULCOLAX STOOL100 M1 PO; +POTASSIUM CHLO20 ME4 PO; +SERTRALINE HYD100 MG PO
== END | disposition home or self-care (01) ==
LOC: WOUNDCARE 02:19
PROVIDERS: ATTEND Nurse Practitioner Family
DX: S51.012A Laceration without foreign body of left elbow, initial encounter (principal); L98.9 Disorder of the skin and subcutaneous tissue, unspecified; R23.8 Other skin changes; E11.9 Type 2 diabetes mellitus without complications; I11.0 Hypertensive heart disease with heart failure; I50.9 Heart failure, unspecified; I25.10 Atherosclerotic heart disease of native coronary artery without angina pectoris; J44.9 Chronic obstructive pulmonary disease, unspecified; E78.5 Hyperlipidemia, unspecified; F32.9 Major depressive disorder, single episode, unspecified; F41.9 Anxiety disorder, unspecified; Z87.891 Personal history of nicotine dependence; Z90.49 Acquired absence of other specified parts of digestive tract; Z79.899 Other long term (current) drug therapy; X58.XXXA Exposure to other specified factors, initial encounter; Y93.89 Activity, other specified; Y92.89 Other specified places as the place of occurrence of the external cause; Y99.8 Other external cause status

== ENCOUNTER 2024-07-09 22:17 | Emergency (ER) | payer OTHER ==
[~2024-07-09] VITALS: Ht 157.4 cm; Wt 58.1 kg
[2024-07-09 22:29] LABS: BASO % 0.2 % (0.0-1.0); EOS % 0.2 % (1.0-4.0); HEMATOCRIT 41.1 % (37.0-47.0); LYMPH # 0.3 10*3/uL (1.3-4.4); LYMPH % 2.4 % (27.0-41.0); MEAN CORPUSCULAR HGB 31.1 pg (27.0-31.0); MEAN CORPUSCULAR HGB CONC 31.4 g/dl (33.0-37.0); MEAN PLATELET VOLUME 8.7 fl (9.6-12.3); MONO # 0.9 10*3/uL (0.1-1.0); MONO % 7.4 % (3.0-9.0); NEUT # 11.2 10*3/uL (2.3-7.9); PLATELET COUNT AUTOMATED 327 10*3/uL (130-400); RED BLOOD COUNT 4.15 10*6/uL (4.10-5.10); RED CELL DISTRI WIDTH 15.5 % (0-14.5); WHITE BLOOD COUNT 12.5 10*3/uL (4.8-10.8)
[2024-07-09 22:51] LABS: BUN 17 mg/dl (9-23); CHLORIDE 95 mmol/L (98-107); POTASSIUM 3.9 mmol/L (3.4-5.1)
[2024-07-09] MEDS ORDERED: BUMETANIDE 1 MG/4 ML VIAL IV ONE (23:10)
[2024-07-10 02:09] VITALS: BP 137/83
== END 2024-07-10 01:24 | disposition home or self-care (01) ==
LOC: ED 22:17
PROVIDERS: Internal Medicine
DX: I50.32 Chronic diastolic (congestive) heart failure (principal); D72.829 Elevated white blood cell count, unspecified; I11.0 Hypertensive heart disease with heart failure; E87.29 Other acidosis; R60.0 Localized edema; E11.65 Type 2 diabetes mellitus with hyperglycemia; K21.9 Gastro-esophageal reflux disease without esophagitis; J44.9 Chronic obstructive pulmonary disease, unspecified; F32.A Depression, unspecified; F17.210 Nicotine dependence, cigarettes, uncomplicated; Z88.7 Allergy status to serum and vaccine; Z91.041 Radiographic dye allergy status; Z88.0 Allergy status to penicillin; Z88.2 Allergy status to sulfonamides; Z88.1 Allergy status to other antibiotic agents; Z91.018 Allergy to other foods; Z90.89 Acquired absence of other organs; Z90.49 Acquired absence of other specified parts of digestive tract; Z98.890 Other specified postprocedural states

== ENCOUNTER 2024-07-12 15:03 | Emergency (ER) | payer OTHER ==
[~2024-07-12] VITALS: Ht 165.1 cm; Wt 54.4 kg
[2024-07-12] MEDS ORDERED: MAGNESIUM SULFATE 50 ML IV ONE (15:10)
[2024-07-12] MEDS ORDERED: Albuterol Sulfate 2.5 MG/3 ML VIAL NEB ONE (15:10)
[2024-07-12] MEDS ORDERED: methylPREDNISolone sod succ 125 MG VIAL IV ONE (15:10)
[2024-07-12 15:19] LABS: HEMATOCRIT 38.8 % (37.0-47.0); MEAN CELL VOLUME 98.7 fl (81.0-99.0); MEAN CORPUSCULAR HGB CONC 31.4 g/dl (33.0-37.0); MEAN PLATELET VOLUME 8.4 fl (9.6-12.3); PLATELET COUNT AUTOMATED 296 10*3/uL (130-400); RED BLOOD COUNT 3.93 10*6/uL (4.10-5.10); RED CELL DISTRI WIDTH 14.6 % (0-14.5); WHITE BLOOD COUNT 11.7 10*3/uL (4.8-10.8)
[2024-07-12 15:24] LABS: MANUAL DIFF REFLEX YES
[2024-07-12 15:42] LABS: PLATELET SUFFICIENCY NORMAL (NORMAL); POLYCHROMASIA SLIGHT; TOTAL CELLS COUNTED 100 #CELLS
[2024-07-12 15:44] LABS: TARGET CELLS FEW
[2024-07-12 15:49] LABS: BUN 12 mg/dl (9-23); CHLORIDE 93 mmol/L (98-107)
[2024-07-12] MEDS ORDERED: Doxycycline Hyclate 100 MG CAP PO ONE (16:25)
[2024-07-12] MEDS ORDERED: VIBRAMYCIN100 MG PO (16:30)
[2024-07-12] MEDS ORDERED: PREDNISONE20 M1 PO (16:30)
[2024-07-12 16:46] VITALS: BP 122/59
== END 2024-07-12 17:15 | disposition home or self-care (01) ==
LOC: ED 15:03
PROVIDERS: Emergency Medicine
DX: J44.1 Chronic obstructive pulmonary disease with (acute) exacerbation (principal); I11.0 Hypertensive heart disease with heart failure; I50.9 Heart failure, unspecified; E78.5 Hyperlipidemia, unspecified; E11.9 Type 2 diabetes mellitus without complications; K21.9 Gastro-esophageal reflux disease without esophagitis; F32.A Depression, unspecified; F17.200 Nicotine dependence, unspecified, uncomplicated; Z91.041 Radiographic dye allergy status; Z88.0 Allergy status to penicillin; Z88.2 Allergy status to sulfonamides; Z88.1 Allergy status to other antibiotic agents; Z91.018 Allergy to other foods; Z90.89 Acquired absence of other organs; Z90.49 Acquired absence of other specified parts of digestive tract; Z98.890 Other specified postprocedural states

== ENCOUNTER → 2024-09-18 | Outpatient (CLI) | payer OTHER | END | disposition home or self-care (01) | LOC: WOUNDCARE 10:22 | PROVIDERS: ATTEND Nurse Practitioner Family | DX: S81.801A Unspecified open wound, right lower leg, initial encounter (principal); S81.811A Laceration without foreign body, right lower leg, initial encounter; R22.41 Localized swelling, mass and lump, right lower limb; M79.661 Pain in right lower leg; I87.2 Venous insufficiency (chronic) (peripheral); I11.0 Hypertensive heart disease with heart failure; I50.9 Heart failure, unspecified; E11.9 Type 2 diabetes mellitus without complications; E78.5 Hyperlipidemia, unspecified; I25.10 Atherosclerotic heart disease of native coronary artery without angina pectoris; J44.9 Chronic obstructive pulmonary disease, unspecified; F41.9 Anxiety disorder, unspecified; F32.9 Major depressive disorder, single episode, unspecified; Z90.49 Acquired absence of other specified parts of digestive tract; Z90.89 Acquired absence of other organs; Z98.890 Other specified postprocedural states; Z87.891 Personal history of nicotine dependence; Z79.899 Other long term (current) drug therapy; X58.XXXA Exposure to other specified factors, initial encounter; Y93.89 Activity, other specified; Y92.89 Other specified places as the place of occurrence of the external cause; Y99.8 Other external cause status ==

== ENCOUNTER → 2024-09-25 | Outpatient (CLI) | payer OTHER | END | disposition home or self-care (01) | LOC: WOUNDCARE 01:39 | PROVIDERS: ATTEND Nurse Practitioner Family | DX: S81.811D Laceration without foreign body, right lower leg, subsequent encounter (principal); I87.2 Venous insufficiency (chronic) (peripheral); M79.661 Pain in right lower leg; R22.41 Localized swelling, mass and lump, right lower limb; I11.0 Hypertensive heart disease with heart failure; I50.9 Heart failure, unspecified; J44.9 Chronic obstructive pulmonary disease, unspecified; I25.10 Atherosclerotic heart disease of native coronary artery without angina pectoris; E78.5 Hyperlipidemia, unspecified; F41.9 Anxiety disorder, unspecified; F32.9 Major depressive disorder, single episode, unspecified; F43.10 Post-traumatic stress disorder, unspecified; Z90.49 Acquired absence of other specified parts of digestive tract; Z98.890 Other specified postprocedural states; Z87.891 Personal history of nicotine dependence; Z79.899 Other long term (current) drug therapy; W22.8XXD Striking against or struck by other objects, subsequent encounter ==

== ENCOUNTER → 2024-10-10 | Outpatient (CLI) | payer OTHER | END | disposition home or self-care (01) | LOC: WOUNDCARE 02:17 | PROVIDERS: ATTEND Nurse Practitioner Family | DX: S81.801D Unspecified open wound, right lower leg, subsequent encounter (principal); S81.811D Laceration without foreign body, right lower leg, subsequent encounter; S61.412A Laceration without foreign body of left hand, initial encounter; I87.2 Venous insufficiency (chronic) (peripheral); I11.0 Hypertensive heart disease with heart failure; I50.9 Heart failure, unspecified; E11.9 Type 2 diabetes mellitus without complications; J44.9 Chronic obstructive pulmonary disease, unspecified; E78.5 Hyperlipidemia, unspecified; R22.41 Localized swelling, mass and lump, right lower limb; I25.10 Atherosclerotic heart disease of native coronary artery without angina pectoris; M79.661 Pain in right lower leg; F32.9 Major depressive disorder, single episode, unspecified; F41.9 Anxiety disorder, unspecified; Z90.49 Acquired absence of other specified parts of digestive tract; Z98.890 Other specified postprocedural states; Z87.891 Personal history of nicotine dependence; Z79.899 Other long term (current) drug therapy; X58.XXXA Exposure to other specified factors, initial encounter; Y93.89 Activity, other specified; Y92.89 Other specified places as the place of occurrence of the external cause; Y99.8 Other external cause status ==

== ENCOUNTER 2024-10-13 09:32 | Emergency (ER) | payer OTHER ==
[~2024-10-13] VITALS: Ht 165.1 cm; Wt 51.3 kg
[2024-10-13 10:15] LABS: HEMATOCRIT 34.7 % (37.0-47.0); MANUAL DIFF REFLEX YES; MEAN CELL VOLUME 95.3 fl (81.0-99.0); MEAN CORPUSCULAR HGB 29.4 pg (27.0-31.0); MEAN CORPUSCULAR HGB CONC 30.8 g/dl (33.0-37.0); MEAN PLATELET VOLUME 8.4 fl (9.6-12.3); PLATELET COUNT AUTOMATED 389 10*3/uL (130-400); RED BLOOD COUNT 3.64 10*6/uL (4.10-5.10); WHITE BLOOD COUNT 14.8 10*3/uL (4.8-10.8)
[2024-10-13 10:20] VITALS: BP 119/47
[2024-10-13 10:25] LABS: ACT PARTIAL THROMBO TIME 25.5 SECONDS (20.0-32.1)
[2024-10-13 10:35] LABS: ALKALINE PHOSPHATASE 44 U/L (46-116); BUN 15 mg/dl (9-23); CHLORIDE 93 mmol/L (98-107); POTASSIUM 4.2 mmol/L (3.4-5.1); SGPT/ALT 9 U/L (5-49); TOTAL PROTEIN 5.9 gm/dL (6.0-8.0)
[2024-10-13] MEDS ORDERED: methylPREDNISolone sod succ 125 MG VIAL IV ONE (10:40)
[2024-10-13] MEDS ORDERED: Albuterol Sulf/Ipratropium 3 ML VIAL NEB ONE (10:40)
[2024-10-13 10:49] LABS: BASOPHILS 2 % (0-1); PLATELET SUFFICIENCY NORMAL (NORMAL); POLYCHROMASIA SLIGHT; TOTAL CELLS COUNTED 100 #CELLS; VACUOLATION OF NEUTROPHILS SLIGHT
== END 2024-10-13 12:31 | disposition home or self-care (01) ==
LOC: ED 09:32
PROVIDERS: Internal Medicine
DX: J44.1 Chronic obstructive pulmonary disease with (acute) exacerbation (principal); Z20.822 Contact with and (suspected) exposure to COVID-19; R07.89 Other chest pain; J43.9 Emphysema, unspecified; I11.0 Hypertensive heart disease with heart failure; I50.9 Heart failure, unspecified; K21.9 Gastro-esophageal reflux disease without esophagitis; E11.9 Type 2 diabetes mellitus without complications; F17.210 Nicotine dependence, cigarettes, uncomplicated; Z91.041 Radiographic dye allergy status; Z88.0 Allergy status to penicillin; Z88.1 Allergy status to other antibiotic agents; Z88.7 Allergy status to serum and vaccine; Z91.018 Allergy to other foods; Z88.2 Allergy status to sulfonamides; Z90.89 Acquired absence of other organs; Z90.49 Acquired absence of other specified parts of digestive tract; Z98.890 Other specified postprocedural states

== ENCOUNTER → 2024-10-20 | Outpatient (CLI) | payer OTHER | END | disposition home or self-care (01) | LOC: WOUNDCARE 13:29 | PROVIDERS: ATTEND Nurse Practitioner Family | DX: S81.811D Laceration without foreign body, right lower leg, subsequent encounter (principal); R22.41 Localized swelling, mass and lump, right lower limb; M79.661 Pain in right lower leg; I87.2 Venous insufficiency (chronic) (peripheral); J44.9 Chronic obstructive pulmonary disease, unspecified; I11.0 Hypertensive heart disease with heart failure; I50.9 Heart failure, unspecified; I25.10 Atherosclerotic heart disease of native coronary artery without angina pectoris; E78.5 Hyperlipidemia, unspecified; F41.9 Anxiety disorder, unspecified; F32.9 Major depressive disorder, single episode, unspecified; Z90.49 Acquired absence of other specified parts of digestive tract; Z98.890 Other specified postprocedural states; Z87.891 Personal history of nicotine dependence; Z79.899 Other long term (current) drug therapy; X58.XXXD Exposure to other specified factors, subsequent encounter ==

== ENCOUNTER → 2024-10-27 | Outpatient (CLI) | payer OTHER | END | disposition home or self-care (01) | LOC: WOUNDCARE 01:21 | PROVIDERS: ATTEND Nurse Practitioner Family | DX: S81.811D Laceration without foreign body, right lower leg, subsequent encounter (principal); R22.41 Localized swelling, mass and lump, right lower limb; M79.661 Pain in right lower leg; I87.2 Venous insufficiency (chronic) (peripheral); I11.0 Hypertensive heart disease with heart failure; I50.9 Heart failure, unspecified; J44.9 Chronic obstructive pulmonary disease, unspecified; I25.10 Atherosclerotic heart disease of native coronary artery without angina pectoris; E78.5 Hyperlipidemia, unspecified; F33.9 Major depressive disorder, recurrent, unspecified; F41.9 Anxiety disorder, unspecified; Z90.49 Acquired absence of other specified parts of digestive tract; Z98.890 Other specified postprocedural states; Z87.891 Personal history of nicotine dependence; Z79.899 Other long term (current) drug therapy; X58.XXXD Exposure to other specified factors, subsequent encounter ==

== ENCOUNTER → 2024-11-07 | Outpatient (CLI) | payer OTHER | END | disposition home or self-care (01) | LOC: WOUNDCARE 04:56 | PROVIDERS: ATTEND Nurse Practitioner Family | DX: S81.811D Laceration without foreign body, right lower leg, subsequent encounter (principal); R22.41 Localized swelling, mass and lump, right lower limb; M79.661 Pain in right lower leg; I87.2 Venous insufficiency (chronic) (peripheral); B35.3 Tinea pedis; I11.0 Hypertensive heart disease with heart failure; I50.9 Heart failure, unspecified; J44.9 Chronic obstructive pulmonary disease, unspecified; I25.10 Atherosclerotic heart disease of native coronary artery without angina pectoris; E78.5 Hyperlipidemia, unspecified; F33.9 Major depressive disorder, recurrent, unspecified; F41.9 Anxiety disorder, unspecified; Z90.49 Acquired absence of other specified parts of digestive tract; Z98.890 Other specified postprocedural states; Z87.891 Personal history of nicotine dependence; Z79.899 Other long term (current) drug therapy; X58.XXXD Exposure to other specified factors, subsequent encounter ==

== ENCOUNTER → 2024-11-14 | Outpatient (CLI) | payer OTHER ==
[~2024-11-14] MED LIST changes: +ACETYLCYST100 MG/1 M MC; +ARNUITY ELLIPT50 MCG NAS; +BUSPAR15 MG PO; +DILTIAZEM 24HR180 MG PO; +LISINOPRIL5 MG PO; +MORPHINE S10 MG/5 M2 PO; +NICODERM CQ1 EACH TD; +VITAMIN B12500 MC2 PO; +VITAMIN C500 M4 PO; +XYZAL5 M1 PO
== END | disposition home or self-care (01) ==
LOC: WOUNDCARE 00:21
PROVIDERS: ATTEND Nurse Practitioner Family
DX: S81.811D Laceration without foreign body, right lower leg, subsequent encounter (principal); R21 Rash and other nonspecific skin eruption; E11.622 Type 2 diabetes mellitus with other skin ulcer; L97.812 Non-pressure chronic ulcer of other part of right lower leg with fat layer exposed; R22.41 Localized swelling, mass and lump, right lower limb; M79.661 Pain in right lower leg; I87.2 Venous insufficiency (chronic) (peripheral); I11.0 Hypertensive heart disease with heart failure; I50.9 Heart failure, unspecified; I25.10 Atherosclerotic heart disease of native coronary artery without angina pectoris; B35.3 Tinea pedis; J44.9 Chronic obstructive pulmonary disease, unspecified; E78.5 Hyperlipidemia, unspecified; F32.9 Major depressive disorder, single episode, unspecified; F43.10 Post-traumatic stress disorder, unspecified; F41.9 Anxiety disorder, unspecified; Z90.49 Acquired absence of other specified parts of digestive tract; Z98.890 Other specified postprocedural states; Z79.899 Other long term (current) drug therapy; Z87.891 Personal history of nicotine dependence; X58.XXXD Exposure to other specified factors, subsequent encounter

== ENCOUNTER → 2024-11-21 | Outpatient (CLI) | payer OTHER | END | disposition home or self-care (01) | LOC: WOUNDCARE 01:45 | PROVIDERS: ATTEND Nurse Practitioner Family | DX: S81.811D Laceration without foreign body, right lower leg, subsequent encounter (principal); E11.622 Type 2 diabetes mellitus with other skin ulcer; L97.812 Non-pressure chronic ulcer of other part of right lower leg with fat layer exposed; I87.2 Venous insufficiency (chronic) (peripheral); R21 Rash and other nonspecific skin eruption; R22.41 Localized swelling, mass and lump, right lower limb; M79.661 Pain in right lower leg; I11.0 Hypertensive heart disease with heart failure; I50.9 Heart failure, unspecified; I25.10 Atherosclerotic heart disease of native coronary artery without angina pectoris; B35.3 Tinea pedis; J44.9 Chronic obstructive pulmonary disease, unspecified; E78.5 Hyperlipidemia, unspecified; F43.10 Post-traumatic stress disorder, unspecified; F41.9 Anxiety disorder, unspecified; F32.9 Major depressive disorder, single episode, unspecified; Z87.891 Personal history of nicotine dependence; Z90.49 Acquired absence of other specified parts of digestive tract; Z98.890 Other specified postprocedural states; Z79.899 Other long term (current) drug therapy; X58.XXXD Exposure to other specified factors, subsequent encounter ==

== ENCOUNTER → 2024-11-28 | Outpatient (CLI) | payer OTHER | END | disposition home or self-care (01) | LOC: WOUNDCARE 00:46 | PROVIDERS: ATTEND Nurse Practitioner Family | DX: S81.811D Laceration without foreign body, right lower leg, subsequent encounter (principal); E11.622 Type 2 diabetes mellitus with other skin ulcer; L97.812 Non-pressure chronic ulcer of other part of right lower leg with fat layer exposed; I87.2 Venous insufficiency (chronic) (peripheral); R22.41 Localized swelling, mass and lump, right lower limb; M79.661 Pain in right lower leg; I11.0 Hypertensive heart disease with heart failure; I50.9 Heart failure, unspecified; I25.10 Atherosclerotic heart disease of native coronary artery without angina pectoris; B35.3 Tinea pedis; J44.9 Chronic obstructive pulmonary disease, unspecified; E78.5 Hyperlipidemia, unspecified; F43.10 Post-traumatic stress disorder, unspecified; F41.9 Anxiety disorder, unspecified; F32.9 Major depressive disorder, single episode, unspecified; Z90.49 Acquired absence of other specified parts of digestive tract; Z98.890 Other specified postprocedural states; Z87.891 Personal history of nicotine dependence; Z79.899 Other long term (current) drug therapy; X58.XXXD Exposure to other specified factors, subsequent encounter ==

== ENCOUNTER → 2024-12-05 | Outpatient (CLI) | payer OTHER | END | disposition home or self-care (01) | LOC: WOUNDCARE 03:42 | PROVIDERS: ATTEND Nurse Practitioner Family | DX: S81.811D Laceration without foreign body, right lower leg, subsequent encounter (principal); E11.622 Type 2 diabetes mellitus with other skin ulcer; L97.812 Non-pressure chronic ulcer of other part of right lower leg with fat layer exposed; R22.41 Localized swelling, mass and lump, right lower limb; M79.661 Pain in right lower leg; B35.3 Tinea pedis; I87.2 Venous insufficiency (chronic) (peripheral); I11.0 Hypertensive heart disease with heart failure; I50.9 Heart failure, unspecified; I25.10 Atherosclerotic heart disease of native coronary artery without angina pectoris; J44.9 Chronic obstructive pulmonary disease, unspecified; E78.5 Hyperlipidemia, unspecified; F43.10 Post-traumatic stress disorder, unspecified; F32.9 Major depressive disorder, single episode, unspecified; F32.A Depression, unspecified; Z90.49 Acquired absence of other specified parts of digestive tract; Z98.890 Other specified postprocedural states; Z87.891 Personal history of nicotine dependence; Z79.899 Other long term (current) drug therapy; X58.XXXD Exposure to other specified factors, subsequent encounter ==

== ENCOUNTER → 2024-12-15 | Outpatient (CLI) | payer OTHER | END | disposition home or self-care (01) | LOC: WOUNDCARE 01:15 | PROVIDERS: ATTEND Nurse Practitioner Family | DX: S81.811D Laceration without foreign body, right lower leg, subsequent encounter (principal); L97.812 Non-pressure chronic ulcer of other part of right lower leg with fat layer exposed; I87.2 Venous insufficiency (chronic) (peripheral); B35.3 Tinea pedis; I11.0 Hypertensive heart disease with heart failure; I50.9 Heart failure, unspecified; I25.10 Atherosclerotic heart disease of native coronary artery without angina pectoris; M79.661 Pain in right lower leg; J44.9 Chronic obstructive pulmonary disease, unspecified; R22.41 Localized swelling, mass and lump, right lower limb; F41.9 Anxiety disorder, unspecified; F32.9 Major depressive disorder, single episode, unspecified; E78.5 Hyperlipidemia, unspecified; Z90.49 Acquired absence of other specified parts of digestive tract; Z98.890 Other specified postprocedural states; Z87.891 Personal history of nicotine dependence; Z79.899 Other long term (current) drug therapy; X58.XXXD Exposure to other specified factors, subsequent encounter ==

== ENCOUNTER → 2024-12-26 | Outpatient (CLI) | payer OTHER | END | disposition home or self-care (01) | LOC: WOUNDCARE 01:16 | PROVIDERS: ATTEND Nurse Practitioner Family | DX: S81.811D Laceration without foreign body, right lower leg, subsequent encounter (principal); E11.622 Type 2 diabetes mellitus with other skin ulcer; L97.812 Non-pressure chronic ulcer of other part of right lower leg with fat layer exposed; I87.2 Venous insufficiency (chronic) (peripheral); I11.0 Hypertensive heart disease with heart failure; I50.9 Heart failure, unspecified; I25.10 Atherosclerotic heart disease of native coronary artery without angina pectoris; E78.5 Hyperlipidemia, unspecified; M79.661 Pain in right lower leg; B35.3 Tinea pedis; J44.9 Chronic obstructive pulmonary disease, unspecified; R22.41 Localized swelling, mass and lump, right lower limb; F32.A Depression, unspecified; F41.9 Anxiety disorder, unspecified; Z90.49 Acquired absence of other specified parts of digestive tract; Z98.890 Other specified postprocedural states; Z87.891 Personal history of nicotine dependence; Z79.899 Other long term (current) drug therapy; X58.XXXD Exposure to other specified factors, subsequent encounter ==

== ENCOUNTER 2025-01-08 11:51 | Emergency (ER) | payer OTHER ==
[2025-01-08 12:02] VITALS: BP 111/47
== END 2025-01-08 16:26 | disposition home or self-care (01) ==
LOC: ED 11:51
DX: I77.6 Arteritis, unspecified (principal); M79.605 Pain in left leg; M79.604 Pain in right leg; I11.0 Hypertensive heart disease with heart failure; I50.9 Heart failure, unspecified; E11.9 Type 2 diabetes mellitus without complications; J45.909 Unspecified asthma, uncomplicated; J44.9 Chronic obstructive pulmonary disease, unspecified; K21.9 Gastro-esophageal reflux disease without esophagitis; Z79.899 Other long term (current) drug therapy; Z88.0 Allergy status to penicillin; Z88.2 Allergy status to sulfonamides; Z88.7 Allergy status to serum and vaccine; Z88.8 Allergy status to other drugs, medicaments and biological substances; Z88.1 Allergy status to other antibiotic agents; Z91.041 Radiographic dye allergy status; Z90.49 Acquired absence of other specified parts of digestive tract; Z90.89 Acquired absence of other organs; Z98.890 Other specified postprocedural states

== ENCOUNTER → 2025-01-08 | Outpatient (CLI) | payer OTHER | END | disposition home or self-care (01) | LOC: WOUNDCARE 02:36 | PROVIDERS: ATTEND Nurse Practitioner Family | DX: S81.811D Laceration without foreign body, right lower leg, subsequent encounter (principal); L97.812 Non-pressure chronic ulcer of other part of right lower leg with fat layer exposed; I87.2 Venous insufficiency (chronic) (peripheral); B35.3 Tinea pedis; I11.0 Hypertensive heart disease with heart failure; I50.9 Heart failure, unspecified; I25.10 Atherosclerotic heart disease of native coronary artery without angina pectoris; E11.9 Type 2 diabetes mellitus without complications; M79.661 Pain in right lower leg; J44.9 Chronic obstructive pulmonary disease, unspecified; R22.41 Localized swelling, mass and lump, right lower limb; F41.9 Anxiety disorder, unspecified; F32.A Depression, unspecified; Z90.49 Acquired absence of other specified parts of digestive tract; Z98.890 Other specified postprocedural states; Z87.891 Personal history of nicotine dependence; Z79.82 Long term (current) use of aspirin; Z79.899 Other long term (current) drug therapy ==

== ENCOUNTER → 2025-01-14 | Outpatient (CLI) | payer OTHER | END | disposition home or self-care (01) | LOC: WOUNDCARE 09:08 | PROVIDERS: ATTEND Nurse Practitioner Family | DX: S81.811D Laceration without foreign body, right lower leg, subsequent encounter (principal); L97.812 Non-pressure chronic ulcer of other part of right lower leg with fat layer exposed; I87.2 Venous insufficiency (chronic) (peripheral); I11.0 Hypertensive heart disease with heart failure; I50.9 Heart failure, unspecified; R22.41 Localized swelling, mass and lump, right lower limb; I25.10 Atherosclerotic heart disease of native coronary artery without angina pectoris; J44.9 Chronic obstructive pulmonary disease, unspecified; M79.661 Pain in right lower leg; B35.3 Tinea pedis; F41.9 Anxiety disorder, unspecified; F32.9 Major depressive disorder, single episode, unspecified; Z90.49 Acquired absence of other specified parts of digestive tract; Z98.890 Other specified postprocedural states; Z87.891 Personal history of nicotine dependence; Z79.899 Other long term (current) drug therapy; X58.XXXD Exposure to other specified factors, subsequent encounter ==

== ENCOUNTER 2025-01-16 08:19 | Emergency (ER) | payer OTHER ==
[~2025-01-16] VITALS: Ht 170.1 cm; Wt 59.0 kg
[2025-01-16] MEDS ORDERED: Ondansetron Hydrochloride 4 MG/2 ML VIAL IV ONE (08:30)
[2025-01-16] MEDS ORDERED: MORPHINE Sulfate 2 MG/ML SYR IV ONE (08:30)
[2025-01-16 08:40] LABS: BASO % 0.2 % (0.0-1.0); EOS # 0.2 10*3/uL (0.0-0.4); EOS % 1.4 % (1.0-4.0); HEMATOCRIT 35.3 % (37.0-47.0); MEAN CELL VOLUME 95.7 fl (81.0-99.0); MEAN CORPUSCULAR HGB 29.8 pg (27.0-31.0); MEAN CORPUSCULAR HGB CONC 31.2 g/dl (33.0-37.0); MEAN PLATELET VOLUME 8.4 fl (9.6-12.3); MONO # 1.3 10*3/uL (0.1-1.0); MONO % 7.8 % (3.0-9.0); NEUT # 13.7 10*3/uL (2.3-7.9); NEUT % 84.2 % (47.0-73.0); PLATELET COUNT AUTOMATED 364 10*3/uL (130-400); RED BLOOD COUNT 3.69 10*6/uL (4.10-5.10); RED CELL DISTRI WIDTH 14.7 % (0-14.5); WHITE BLOOD COUNT 16.3 10*3/uL (4.8-10.8)
[2025-01-16 09:00] LABS: ALKALINE PHOSPHATASE 48 U/L (46-116); BUN 14 mg/dl (9-23); CHLORIDE 94 mmol/L (98-107); LIPASE 23 U/L (12-53); POTASSIUM 3.9 mmol/L (3.4-5.1); SGPT/ALT 14 U/L (5-49); TOTAL PROTEIN 5.8 gm/dL (6.0-8.0)
[2025-01-16 10:47] LABS: BILIRUBIN Negative (Negative); BLOOD Trace-Lysed (Negative); CLARITY Clear (Clear); COLOR Yellow (Yellow); GLUCOSE Negative (Negative); KETONE Negative (Negative); LEUKO ESTERASE Trace (Negative); NITRITE Negative (Negative); PH 6.5 (4.5-8.0); UROBILINOGEN 0.2 E.U./dl (0.0-1.0)
[2025-01-16 11:11] LABS: RBC 16-20 rbc/hpf (0-2)
[2025-01-16 11:12] LABS: BACTERIA 1+
[2025-01-16] MEDS ORDERED: cefTRIAXone Sodium 1 GM/10 ML SYR IV ONE (11:15)
[2025-01-16 11:42] VITALS: BP 118/50
[2025-01-16] MEDS ORDERED: busPIRone Hydrochloride 7.5 MG TAB PO ONE (12:35)
== END 2025-01-16 11:33 | disposition home or self-care (01) ==
LOC: ED 08:19
PROVIDERS: Emergency Medicine
DX: N39.0 Urinary tract infection, site not specified (principal); R10.84 Generalized abdominal pain; I11.0 Hypertensive heart disease with heart failure; I50.9 Heart failure, unspecified; I25.10 Atherosclerotic heart disease of native coronary artery without angina pectoris; J44.9 Chronic obstructive pulmonary disease, unspecified; E78.5 Hyperlipidemia, unspecified; F32.A Depression, unspecified; F41.9 Anxiety disorder, unspecified; F17.200 Nicotine dependence, unspecified, uncomplicated; Z88.7 Allergy status to serum and vaccine; Z91.041 Radiographic dye allergy status; Z88.2 Allergy status to sulfonamides; Z88.0 Allergy status to penicillin; Z88.8 Allergy status to other drugs, medicaments and biological substances; Z91.018 Allergy to other foods; Z79.899 Other long term (current) drug therapy; Z90.49 Acquired absence of other specified parts of digestive tract; Z90.89 Acquired absence of other organs

== ENCOUNTER → 2025-01-21 | Outpatient (CLI) | payer OTHER | END | disposition home or self-care (01) | LOC: WOUNDCARE 01:45 | PROVIDERS: ATTEND Nurse Practitioner Family | DX: S81.811D Laceration without foreign body, right lower leg, subsequent encounter (principal); E11.622 Type 2 diabetes mellitus with other skin ulcer; L97.812 Non-pressure chronic ulcer of other part of right lower leg with fat layer exposed; I87.2 Venous insufficiency (chronic) (peripheral); B35.3 Tinea pedis; M79.661 Pain in right lower leg; I11.0 Hypertensive heart disease with heart failure; I50.9 Heart failure, unspecified; I25.10 Atherosclerotic heart disease of native coronary artery without angina pectoris; J44.9 Chronic obstructive pulmonary disease, unspecified; R22.41 Localized swelling, mass and lump, right lower limb; F41.9 Anxiety disorder, unspecified; F32.A Depression, unspecified; Z87.891 Personal history of nicotine dependence; Z90.49 Acquired absence of other specified parts of digestive tract; Z98.890 Other specified postprocedural states; Z79.899 Other long term (current) drug therapy; X58.XXXD Exposure to other specified factors, subsequent encounter ==

== ENCOUNTER → 2025-01-28 | Outpatient (CLI) | payer OTHER | END | disposition home or self-care (01) | LOC: WOUNDCARE 01:21 | PROVIDERS: ATTEND Nurse Practitioner Family | DX: S81.811D Laceration without foreign body, right lower leg, subsequent encounter (principal); E11.622 Type 2 diabetes mellitus with other skin ulcer; L97.812 Non-pressure chronic ulcer of other part of right lower leg with fat layer exposed; I87.2 Venous insufficiency (chronic) (peripheral); R22.41 Localized swelling, mass and lump, right lower limb; B35.3 Tinea pedis; M79.661 Pain in right lower leg; I11.0 Hypertensive heart disease with heart failure; I50.9 Heart failure, unspecified; I25.10 Atherosclerotic heart disease of native coronary artery without angina pectoris; J44.9 Chronic obstructive pulmonary disease, unspecified; F41.9 Anxiety disorder, unspecified; F32.A Depression, unspecified; Z87.891 Personal history of nicotine dependence; Z90.49 Acquired absence of other specified parts of digestive tract; Z98.890 Other specified postprocedural states; Z79.899 Other long term (current) drug therapy; X58.XXXD Exposure to other specified factors, subsequent encounter ==

== ENCOUNTER → 2025-02-04 | Outpatient (CLI) | payer OTHER | END | disposition home or self-care (01) | LOC: WOUNDCARE 02:30 | PROVIDERS: ATTEND Nurse Practitioner Family | DX: S81.811D Laceration without foreign body, right lower leg, subsequent encounter (principal); E11.622 Type 2 diabetes mellitus with other skin ulcer; L97.812 Non-pressure chronic ulcer of other part of right lower leg with fat layer exposed; I87.2 Venous insufficiency (chronic) (peripheral); R22.41 Localized swelling, mass and lump, right lower limb; M79.661 Pain in right lower leg; B35.3 Tinea pedis; I11.0 Hypertensive heart disease with heart failure; I50.9 Heart failure, unspecified; I25.10 Atherosclerotic heart disease of native coronary artery without angina pectoris; J44.9 Chronic obstructive pulmonary disease, unspecified; F41.9 Anxiety disorder, unspecified; F32.A Depression, unspecified; Z90.49 Acquired absence of other specified parts of digestive tract; Z98.890 Other specified postprocedural states; Z79.899 Other long term (current) drug therapy; Z87.891 Personal history of nicotine dependence; X58.XXXD Exposure to other specified factors, subsequent encounter ==

== ENCOUNTER 2025-02-16 23:33 | Inpatient (IN) | payer OTHER ==
[~2025-02-16] VITALS: Ht 167.6 cm; Wt 57.7 kg
[~2025-02-16 23:33] MED LIST changes: +DIGOXIN125 MCG PO; +DOXYCYCLINE MO100 MG PO; +K-PHOS500 MG PO; +LISINOPRIL2.5 MG PO
[2025-02-16 23:38] VITALS: BP 86/48
[2025-02-16] MEDS ORDERED: dilTIAZem Hydrochloride 25 MG/5 ML VIAL IV ONE (23:50)
[2025-02-16 23:58] LABS: BASO % 0.2 % (0.0-1.0); EOS % 0.2 % (1.0-4.0); HEMATOCRIT 38.8 % (37.0-47.0); MEAN CELL VOLUME 98.5 fl (81.0-99.0); MEAN CORPUSCULAR HGB CONC 31.4 g/dl (33.0-37.0); MEAN PLATELET VOLUME 8.6 fl (9.6-12.3); MONO # 0.8 10*3/uL (0.1-1.0); MONO % 6.6 % (3.0-9.0); NEUT # 10.8 10*3/uL (2.3-7.9); NEUT % 89.1 % (47.0-73.0); PLATELET COUNT AUTOMATED 329 10*3/uL (130-400); RED BLOOD COUNT 3.94 10*6/uL (4.10-5.10); WHITE BLOOD COUNT 12.1 10*3/uL (4.8-10.8)
[2025-02-17] VITALS (19 sets, daily range): BP systolic 72–121; BP diastolic 39–58
[2025-02-17 00:20] LABS: ALKALINE PHOSPHATASE 54 U/L (46-116); BUN 22 mg/dl (9-23); CHLORIDE 97 mmol/L (98-107); POTASSIUM 3.6 mmol/L (3.4-5.1); SGPT/ALT 18 U/L (5-49); TOTAL PROTEIN 5.5 gm/dL (6.0-8.0)
[2025-02-17] MEDS ORDERED: dilTIAZem Hydrochloride 25 MG/5 ML VIAL IV ONE ×2 (00:25→00:45)
[2025-02-17] MEDS ORDERED: Metoprolol Tartrate 5 MG/5 ML VIAL IV ONE (01:25)
[2025-02-17] MEDS ORDERED: dilTIAZem Hydrochloride 100 ML IV SCH (01:30)
[2025-02-17] MEDS ORDERED: BISACODYL 10 MG SUPP R PRN (03:30)
[2025-02-17] MEDS ORDERED: TEMAZEPAM 15 MG CAP PO PRN (03:30)
[2025-02-17] MEDS ORDERED: Magnesium Hydroxide 30 ML UDC PO PRN (03:30)
[2025-02-17] MEDS ORDERED: BISACODYL 5 MG TAB PO PRN (03:30)
[2025-02-17] MEDS ORDERED: ACETAMINOPHEN 325 MG TAB PO PRN (03:30)
[2025-02-17] MEDS ORDERED: Acetaminophen/Hydrocodone 5 MG/325 MG TABLET PO PRN (03:30)
[2025-02-17] MEDS ORDERED: Ondansetron Hydrochloride 4 MG/2 ML VIAL IV PRN (03:30)
[2025-02-17] MEDS ORDERED: ACETAMINOPHEN 650 MG SUPP R PRN (03:30)
[2025-02-17] MEDS ORDERED: Albuterol Sulf/Ipratropium 3 ML VIAL NEB ONE (05:10)
[2025-02-17 05:25] LABS: BUN 21 mg/dl (9-23); CHLORIDE 99 mmol/L (98-107); CHOLESTEROL 211 mg/dL (<200); FREE T4 1.22 ng/dl (0.89-1.76); LDL CHOLESTEROL 99 mg/dL (9-159); POTASSIUM 3.5 mmol/L (3.4-5.1); TRIGLYCERIDES 105 mg/dl (<150)
[2025-02-17 06:08] LABS: BASO % 0.3 % (0.0-1.0); EOS # 0.1 10*3/uL (0.0-0.4); EOS % 0.9 % (1.0-4.0); MEAN CELL VOLUME 97.1 fl (81.0-99.0); MEAN CORPUSCULAR HGB CONC 31.9 g/dl (33.0-37.0); MEAN PLATELET VOLUME 9.1 fl (9.6-12.3); MONO % 9.8 % (3.0-9.0); NEUT # 8.2 10*3/uL (2.3-7.9); NEUT % 80.6 % (47.0-73.0); PLATELET COUNT AUTOMATED 323 10*3/uL (130-400); RED BLOOD COUNT 3.81 10*6/uL (4.10-5.10); RED CELL DISTRI WIDTH 17.2 % (0-14.5); WHITE BLOOD COUNT 10.2 10*3/uL (4.8-10.8)
[2025-02-17] MEDS ORDERED: methylPREDNISolone sod succ 125 MG VIAL IV ONE (06:40)
[2025-02-17] MEDS ORDERED: Amiodarone Hydrochloride 150 MG,IV 1 EA in DEXTROSE 5% 100 ML IV ONE (06:55)
[2025-02-17] MEDS ORDERED: Amiodarone Hydrochloride 900 MG in DEXTROSE 5% 500 ML IV SCH (07:10)
[2025-02-17 07:15] LABS: ABG O2 SATURATION 98.2 % (94.0-98.0); ARTERIAL BLOOD GAS PH 7.434 (7.350-7.450)
[2025-02-17] MEDS ORDERED: ASPIRIN, CHEWABLE 81 MG TAB PO ONE (07:20)
[2025-02-17] MEDS ORDERED: DEXTROSE 50% 25 GM/50 ML VIAL IV PRN (07:35)
[2025-02-17 07:40] LABS: VITAMIN D, 25-HYDROXY 45.5 ng/mL (30-100)
[2025-02-17] MEDS ORDERED: DIGOXIN 500 MCG/2 ML AMP IV ONE ×2 (08:40→12:05)
[2025-02-17] MEDS ORDERED: GUAIFENESIN 600 MG TAB ER PO SCH (10:00)
[2025-02-17] MEDS ORDERED: DIGOXIN 125 MCG TAB PO SCH (10:00)
[2025-02-17] MEDS ORDERED: FUROSEMIDE 40 MG/4 ML VIAL IV SCH (10:00)
[2025-02-17] MEDS ORDERED: Sertraline Hydrochloride 50 MG TAB PO SCH (10:00)
[2025-02-17] MEDS ORDERED: Metoprolol Tartrate 25 MG TAB PO SCH (10:00)
[2025-02-17] MEDS ORDERED: Potassium Phosphate, Monobas 500 MG TAB PO SCH (10:00)
[2025-02-17] MEDS ORDERED: Doxycycline Hyclate 100 MG in SODIUM CHLORIDE 0.9% 250 ML IV SCH (10:00)
[2025-02-17] MEDS ORDERED: Enoxaparin Sodium 60 MG/0.6 ML SYR SC SCH (10:00)
[2025-02-17] MEDS ORDERED: HEEL PROTECTOR DEVICE ONE (11:07)
[2025-02-17] MEDS ORDERED: FOAM BANDAGE HEEL T ONE (11:07)
[2025-02-17] MEDS ORDERED: FOAM BANDAGE 5X5 T ONE (11:08)
[2025-02-17] MEDS ORDERED: FOAM BANDAGE 1 EACH BANDAGE T ONE (11:08)
[2025-02-17] MEDS ORDERED: LEPTOSPERMUM HONEY 4 X 5 INCH WOUND DRESSING T ONE (11:08)
[2025-02-17] MEDS ORDERED: INSULIN LISPRO 1 UNIT/0.01 ML SQ SCH (11:30)
[2025-02-17] MEDS ORDERED: Levalbuterol Hydrochloride 1.25 MG VIAL NEB SCH ×2 (12:00→23:20)
[2025-02-17] MEDS ORDERED: SODIUM CHLORIDE 0.9% 500 ML IV ONE (12:05)
[2025-02-17] MEDS ORDERED: busPIRone Hydrochloride 10 MG TAB PO SCH (14:00)
[2025-02-17] MEDS ORDERED: ATORVASTATIN CALCIUM 10 MG TAB PO SCH (18:00)
[2025-02-18] VITALS: BP 140/93
[2025-02-18 04:00] VITALS: BP 115/62
[2025-02-18 05:30] LABS: ALKALINE PHOSPHATASE 44 U/L (46-116); BUN 17 mg/dl (9-23); CHLORIDE 100 mmol/L (98-107); POTASSIUM 3.2 mmol/L (3.4-5.1); SGPT/ALT 13 U/L (5-49); TOTAL PROTEIN 4.6 gm/dL (6.0-8.0)
[2025-02-18 06:03] LABS: BASO % 0.2 % (0.0-1.0); EOS % 0.2 % (1.0-4.0); MEAN CELL VOLUME 97.8 fl (81.0-99.0); MEAN CORPUSCULAR HGB 30.7 pg (27.0-31.0); MEAN CORPUSCULAR HGB CONC 31.4 g/dl (33.0-37.0); MEAN PLATELET VOLUME 9.2 fl (9.6-12.3); MONO # 1.1 10*3/uL (0.1-1.0); MONO % 8.9 % (3.0-9.0); NEUT # 10.3 10*3/uL (2.3-7.9); NEUT % 84.5 % (47.0-73.0); PLATELET COUNT AUTOMATED 301 10*3/uL (130-400); RED BLOOD COUNT 3.58 10*6/uL (4.10-5.10); RED CELL DISTRI WIDTH 16.5 % (0-14.5); WHITE BLOOD COUNT 12.2 10*3/uL (4.8-10.8)
[2025-02-18 08:00] VITALS: BP 110/54
[2025-02-18] MEDS ORDERED: POTASSIUM PHOS IN 0.9 % NACL 250 ML IV SCH (08:00)
[2025-02-18] MEDS ORDERED: ASPIRIN, CHEWABLE 81 MG TAB PO SCH (10:00)
[2025-02-18 11:01] LABS: BUN 17 mg/dl (9-23); CHLORIDE 98 mmol/L (98-107); POTASSIUM 3.1 mmol/L (3.4-5.1)
[2025-02-18 12:00] VITALS: BP 102/46
[2025-02-18] MEDS ORDERED: POTASSIUM CHLORIDE 20 MEQ TAB PO ONE (13:20)
[2025-02-18 16:00] VITALS: BP 102/41
[2025-02-18 20:03] VITALS: BP 106/43
[2025-02-18] MEDS ORDERED: Doxycycline Hyclate 100 MG CAPSULE PO SCH (22:00)
[2025-02-18] MEDS ORDERED: methylPREDNISolone sod succ 40 MG VIAL IV SCH (22:00)
[2025-02-19 00:02] VITALS: BP 94/47
[2025-02-19 04:00] VITALS: BP 94/47
[2025-02-19 04:53] LABS: BUN 16 mg/dl (9-23); CHLORIDE 103 mmol/L (98-107)
[2025-02-19 06:10] LABS: BASO % 0.3 % (0.0-1.0); EOS # 0.1 10*3/uL (0.0-0.4); HEMATOCRIT 34.3 % (37.0-47.0); MEAN CELL VOLUME 100.3 fl (81.0-99.0); MEAN CORPUSCULAR HGB 31.3 pg (27.0-31.0); MEAN CORPUSCULAR HGB CONC 31.2 g/dl (33.0-37.0); MEAN PLATELET VOLUME 9.4 fl (9.6-12.3); MONO % 10.2 % (3.0-9.0); NEUT # 7.4 10*3/uL (2.3-7.9); NEUT % 75.7 % (47.0-73.0); PLATELET COUNT AUTOMATED 310 10*3/uL (130-400); RED BLOOD COUNT 3.42 10*6/uL (4.10-5.10); RED CELL DISTRI WIDTH 16.9 % (0-14.5); WHITE BLOOD COUNT 9.8 10*3/uL (4.8-10.8)
[2025-02-19 08:00] VITALS: BP 100/49
[2025-02-19] MEDS ORDERED: predniSONE 10 MG TAB PO SCH (10:00)
[2025-02-19] MEDS ORDERED: Nicotine 21 MG PATCH T SCH (10:00)
[2025-02-19] MEDS ORDERED: Enoxaparin Sodium 40 MG/0.4 ML SYR SC SCH (10:00)
[2025-02-19] MEDS ORDERED: Levalbuterol Hydrochloride 1.25 MG VIAL NEB PRN (10:55)
[2025-02-19 12:00] VITALS: BP 93/41
[2025-02-19 16:00] VITALS: BP 100/63
[2025-02-19 20:09] VITALS: BP 100/63; BP 103/38
[2025-02-20] VITALS: BP 108/60
[2025-02-20 08:00] VITALS: BP 119/57
[2025-02-20 08:04] LABS: BASO % 0.3 % (0.0-1.0); EOS # 0.1 10*3/uL (0.0-0.4); EOS % 1.2 % (1.0-4.0); HEMATOCRIT 32.1 % (37.0-47.0); MEAN CELL VOLUME 100.9 fl (81.0-99.0); MEAN CORPUSCULAR HGB 31.4 pg (27.0-31.0); MEAN CORPUSCULAR HGB CONC 31.2 g/dl (33.0-37.0); MEAN PLATELET VOLUME 9.2 fl (9.6-12.3); MONO # 1.1 10*3/uL (0.1-1.0); MONO % 9.2 % (3.0-9.0); PLATELET COUNT AUTOMATED 283 10*3/uL (130-400); RED BLOOD COUNT 3.18 10*6/uL (4.10-5.10); RED CELL DISTRI WIDTH 16.4 % (0-14.5); WHITE BLOOD COUNT 11.4 10*3/uL (4.8-10.8)
[2025-02-20 09:13] LABS: ALKALINE PHOSPHATASE 45 U/L (46-116); BUN 12 mg/dl (9-23); CHLORIDE 101 mmol/L (98-107); POTASSIUM 3.7 mmol/L (3.4-5.1); SGPT/ALT 17 U/L (5-49); TOTAL PROTEIN 4.6 gm/dL (6.0-8.0)
[2025-02-20] MEDS ORDERED: POTASSIUM PHOS IN 0.9 % NACL 250 ML IV ONE (09:25)
[2025-02-20] MEDS ORDERED: Nicotine 14 MG PATCH T SCH (10:00)
[2025-02-20 12:00] VITALS: BP 89/40
[2025-02-20] MEDS ORDERED: SODIUM CHLORIDE 0.9% 500 ML IV ONE (12:40)
[2025-02-20] MEDS ORDERED: Potassium Phosphate, Monobas 500 MG TAB PO SCH (14:00)
[2025-02-20 16:00] VITALS: BP 104/38
[2025-02-20 20:00] VITALS: BP 102/38
[2025-02-21] VITALS: BP 120/56
[2025-02-21 05:26] LABS: BUN 16 mg/dl (9-23); CHLORIDE 101 mmol/L (98-107); POTASSIUM 4.2 mmol/L (3.4-5.1)
[2025-02-21 06:02] LABS: BASO % 0.2 % (0.0-1.0); EOS # 0.1 10*3/uL (0.0-0.4); EOS % 0.9 % (1.0-4.0); HEMATOCRIT 30.3 % (37.0-47.0); MEAN CELL VOLUME 100.7 fl (81.0-99.0); MEAN CORPUSCULAR HGB 31.2 pg (27.0-31.0); MEAN PLATELET VOLUME 9.5 fl (9.6-12.3); MONO # 0.9 10*3/uL (0.1-1.0); MONO % 9.3 % (3.0-9.0); NEUT # 7.6 10*3/uL (2.3-7.9); NEUT % 79.4 % (47.0-73.0); PLATELET COUNT AUTOMATED 266 10*3/uL (130-400); RED BLOOD COUNT 3.01 10*6/uL (4.10-5.10); RED CELL DISTRI WIDTH 16.6 % (0-14.5); WHITE BLOOD COUNT 9.5 10*3/uL (4.8-10.8)
[2025-02-21 06:30] VITALS: BP 111/54
[2025-02-21 08:00] VITALS: BP 121/47
[2025-02-21 12:00] VITALS: BP 102/36
[2025-02-21] MEDS ORDERED: FOAM BANDAGE HEEL T ONE (14:06)
[2025-02-21 16:00] VITALS: BP 104/42
[2025-02-21 20:00] VITALS: BP 97/41
[2025-02-22] VITALS: BP 106/44
[2025-02-22 06:24] LABS: BASO % 0.3 % (0.0-1.0); EOS # 0.2 10*3/uL (0.0-0.4); HEMATOCRIT 29.9 % (37.0-47.0); MEAN CORPUSCULAR HGB 31.4 pg (27.0-31.0); MEAN CORPUSCULAR HGB CONC 30.8 g/dl (33.0-37.0); MONO # 0.8 10*3/uL (0.1-1.0); MONO % 7.7 % (3.0-9.0); NEUT # 7.7 10*3/uL (2.3-7.9); NEUT % 78.3 % (47.0-73.0); PLATELET COUNT AUTOMATED 277 10*3/uL (130-400); RED BLOOD COUNT 2.93 10*6/uL (4.10-5.10); RED CELL DISTRI WIDTH 16.7 % (0-14.5); WHITE BLOOD COUNT 9.8 10*3/uL (4.8-10.8)
[2025-02-22 06:25] LABS: BUN 13 mg/dl (9-23); CHLORIDE 100 mmol/L (98-107); POTASSIUM 5.1 mmol/L (3.4-5.1)
[2025-02-22] MEDS ORDERED: LORazepam 0.5 MG TAB PO ONE (06:50)
[2025-02-22 08:00] VITALS: BP 112/88
[2025-02-22] MEDS ORDERED: CEPHALEXIN 500 MG CAP PO SCH (10:00)
[2025-02-22 16:00] VITALS: BP 116/43; BP 151/70
[2025-02-22 20:00] VITALS: BP 121/46
[2025-02-22] MEDS ORDERED: APIXABAN 2.5 MG TABLET PO SCH (22:00)
[2025-02-23] VITALS: BP 116/72
[2025-02-23 06:46] LABS: BASO % 0.3 % (0.0-1.0); EOS # 0.2 10*3/uL (0.0-0.4); EOS % 1.2 % (1.0-4.0); HEMATOCRIT 28.7 % (37.0-47.0); MEAN PLATELET VOLUME 9.9 fl (9.6-12.3); MONO % 7.4 % (3.0-9.0); NEUT # 10.5 10*3/uL (2.3-7.9); NEUT % 81.7 % (47.0-73.0); PLATELET COUNT AUTOMATED 258 10*3/uL (130-400); RED BLOOD COUNT 2.87 10*6/uL (4.10-5.10); RED CELL DISTRI WIDTH 16.6 % (0-14.5); WHITE BLOOD COUNT 12.9 10*3/uL (4.8-10.8)
[2025-02-23 07:36] LABS: BUN 13 mg/dl (9-23); CHLORIDE 98 mmol/L (98-107); POTASSIUM 4.5 mmol/L (3.4-5.1)
[2025-02-23 08:00] VITALS: BP 135/58
[2025-02-23] MEDS ORDERED: ELIQUIS2.5 M1 PO (11:45)
[2025-02-23] MEDS ORDERED: LOPRESSOR25 MG PO (11:45)
== END 2025-02-23 15:36 | disposition home health service (06) | DRG 853 ==
LOC: ED 23:33 → EDHOLD 02-17 02:15 → ICCU 02-17 02:15 → EDHOLD 02-17 06:44 → ICCU 02-17 07:25 → 5E 02-22 10:19
PROVIDERS: Internal Medicine; Student in an Organized Health Care Education/Training Program; ADMIT Family Medicine; ATTEND Family Medicine
PROC: 0JBN0ZZ Excision of Right Lower Leg Subcutaneous Tissue and Fascia, Open Approach (ICD-10-PCS; 2025-02-18)
PROC: 05HY33Z Insertion of Infusion Device into Upper Vein, Percutaneous Approach (ICD-10-PCS; principal; 2025-02-20)
PROC: B54MZZA Ultrasonography of Right Upper Extremity Veins, Guidance (ICD-10-PCS; 2025-02-20)
PROC: 5A09357 Assistance with Respiratory Ventilation, Less than 24 Consecutive Hours, Continuous Positive Airway Pressure (ICD-10-PCS; 2025-02-22)
DX: A41.9 Sepsis, unspecified organism (principal); G93.41 Metabolic encephalopathy; I21.4 Non-ST elevation (NSTEMI) myocardial infarction; I50.33 Acute on chronic diastolic (congestive) heart failure; J44.1 Chronic obstructive pulmonary disease with (acute) exacerbation; E44.0 Moderate protein-calorie malnutrition; I48.92 Unspecified atrial flutter; J84.114 Acute interstitial pneumonitis; L97.819 Non-pressure chronic ulcer of other part of right lower leg with unspecified severity; Z66 Do not resuscitate; Z20.822 Contact with and (suspected) exposure to COVID-19; R65.20 Severe sepsis without septic shock; F17.210 Nicotine dependence, cigarettes, uncomplicated; F43.10 Post-traumatic stress disorder, unspecified; F41.1 Generalized anxiety disorder; J43.9 Emphysema, unspecified; E78.5 Hyperlipidemia, unspecified; I25.10 Atherosclerotic heart disease of native coronary artery without angina pectoris; E11.9 Type 2 diabetes mellitus without complications; I11.0 Hypertensive heart disease with heart failure; I48.91 Unspecified atrial fibrillation; Z88.0 Allergy status to penicillin; Z88.2 Allergy status to sulfonamides; Z88.8 Allergy status to other drugs, medicaments and biological substances; Z91.018 Allergy to other foods; Z79.899 Other long term (current) drug therapy; Z83.6 Family history of other diseases of the respiratory system; Z83.3 Family history of diabetes mellitus; Z82.49 Family history of ischemic heart disease and other diseases of the circulatory system; Z68.20 Body mass index [BMI] 20.0-20.9, adult

== ENCOUNTER 2025-02-24 03:18 | Emergency (ER) | payer OTHER ==
[~2025-02-24] VITALS: Ht 165.1 cm; Wt 49.4 kg
[~2025-02-24 03:18] MED LIST changes: +ELIQUIS2.5 M1 PO
[2025-02-24 03:51] VITALS: BP 111/35
[2025-02-24 03:54] LABS: BASO % 0.2 % (0.0-1.0); EOS # 0.1 10*3/uL (0.0-0.4); EOS % 0.9 % (1.0-4.0); HEMATOCRIT 29.4 % (37.0-47.0); MEAN CELL VOLUME 100.3 fl (81.0-99.0); MEAN CORPUSCULAR HGB 31.1 pg (27.0-31.0); MONO # 0.9 10*3/uL (0.1-1.0); MONO % 7.1 % (3.0-9.0); NEUT # 11.1 10*3/uL (2.3-7.9); NEUT % 84.9 % (47.0-73.0); PLATELET COUNT AUTOMATED 261 10*3/uL (130-400); RED BLOOD COUNT 2.93 10*6/uL (4.10-5.10); RED CELL DISTRI WIDTH 16.3 % (0-14.5); WHITE BLOOD COUNT 13.1 10*3/uL (4.8-10.8)
[2025-02-24 04:19] LABS: ALKALINE PHOSPHATASE 50 U/L (46-116); BUN 18 mg/dl (9-23); CHLORIDE 96 mmol/L (98-107); CPK 19 U/L (34-171); SGPT/ALT 15 U/L (5-49); TOTAL PROTEIN 4.7 gm/dL (6.0-8.0)
== END 2025-02-24 07:13 | disposition home or self-care (01) ==
LOC: ED 03:18
PROVIDERS: Emergency Medicine
DX: I49.1 Atrial premature depolarization (principal); D64.9 Anemia, unspecified; J44.9 Chronic obstructive pulmonary disease, unspecified; R06.00 Dyspnea, unspecified; R00.2 Palpitations; I11.0 Hypertensive heart disease with heart failure; I50.9 Heart failure, unspecified; J45.909 Unspecified asthma, uncomplicated; K21.9 Gastro-esophageal reflux disease without esophagitis; Z79.899 Other long term (current) drug therapy; Z88.0 Allergy status to penicillin; Z88.1 Allergy status to other antibiotic agents; Z88.2 Allergy status to sulfonamides; Z88.8 Allergy status to other drugs, medicaments and biological substances; Z91.041 Radiographic dye allergy status; Z91.018 Allergy to other foods; Z90.49 Acquired absence of other specified parts of digestive tract; Z90.89 Acquired absence of other organs; Z98.890 Other specified postprocedural states

== ENCOUNTER 2025-03-06 08:27 | Emergency (ER) | payer OTHER ==
[2025-03-06] MEDS ORDERED: SODIUM CHLORIDE 0.9% 1,000 ML IV ONE (08:35)
[2025-03-06] MEDS ORDERED: MORPHINE Sulfate 2 MG/ML SYR IV ONE (08:35)
[2025-03-06 08:40] VITALS: BP 105/46
[2025-03-06] MEDS ORDERED: MORPHINE Sulfate 2 MG/ML SYR IM ONE (11:55)
== END 2025-03-06 12:38 | disposition home or self-care (01) ==
LOC: ED 08:27
DX: G89.29 Other chronic pain (principal); M54.50 Low back pain, unspecified; I11.0 Hypertensive heart disease with heart failure; I50.9 Heart failure, unspecified; K21.9 Gastro-esophageal reflux disease without esophagitis; E11.9 Type 2 diabetes mellitus without complications; J45.909 Unspecified asthma, uncomplicated; F32.A Depression, unspecified; F17.200 Nicotine dependence, unspecified, uncomplicated; Z79.899 Other long term (current) drug therapy; Z88.0 Allergy status to penicillin; Z88.1 Allergy status to other antibiotic agents; Z88.2 Allergy status to sulfonamides; Z88.8 Allergy status to other drugs, medicaments and biological substances; Z91.041 Radiographic dye allergy status; Z91.018 Allergy to other foods; Z90.49 Acquired absence of other specified parts of digestive tract; Z90.89 Acquired absence of other organs; Z98.890 Other specified postprocedural states

== ENCOUNTER → 2025-03-10 | Outpatient (CLI) | payer OTHER | END | disposition home or self-care (01) | LOC: WOUNDCARE 04:16 | PROVIDERS: ATTEND Nurse Practitioner Family | DX: S81.811D Laceration without foreign body, right lower leg, subsequent encounter (principal); S51.811A Laceration without foreign body of right forearm, initial encounter; S61.511A Laceration without foreign body of right wrist, initial encounter; E11.622 Type 2 diabetes mellitus with other skin ulcer; L97.812 Non-pressure chronic ulcer of other part of right lower leg with fat layer exposed; I87.2 Venous insufficiency (chronic) (peripheral); R22.41 Localized swelling, mass and lump, right lower limb; I11.0 Hypertensive heart disease with heart failure; I50.9 Heart failure, unspecified; M79.661 Pain in right lower leg; B35.3 Tinea pedis; I25.10 Atherosclerotic heart disease of native coronary artery without angina pectoris; E78.5 Hyperlipidemia, unspecified; J44.9 Chronic obstructive pulmonary disease, unspecified; F41.9 Anxiety disorder, unspecified; F32.A Depression, unspecified; Z90.49 Acquired absence of other specified parts of digestive tract; Z98.890 Other specified postprocedural states; Z79.899 Other long term (current) drug therapy; Z87.891 Personal history of nicotine dependence; X58.XXXD Exposure to other specified factors, subsequent encounter; X58.XXXA Exposure to other specified factors, initial encounter; Y93.89 Activity, other specified; Y92.89 Other specified places as the place of occurrence of the external cause; Y99.8 Other external cause status ==

== ENCOUNTER → 2025-03-17 | Outpatient (CLI) | payer OTHER | END | disposition home or self-care (01) | LOC: WOUNDCARE 01:41 | PROVIDERS: ATTEND Nurse Practitioner Family | DX: S81.811D Laceration without foreign body, right lower leg, subsequent encounter (principal); S61.511D Laceration without foreign body of right wrist, subsequent encounter; E11.622 Type 2 diabetes mellitus with other skin ulcer; L97.812 Non-pressure chronic ulcer of other part of right lower leg with fat layer exposed; I87.2 Venous insufficiency (chronic) (peripheral); R22.41 Localized swelling, mass and lump, right lower limb; B35.3 Tinea pedis; I11.0 Hypertensive heart disease with heart failure; I50.9 Heart failure, unspecified; I25.10 Atherosclerotic heart disease of native coronary artery without angina pectoris; M79.661 Pain in right lower leg; J44.9 Chronic obstructive pulmonary disease, unspecified; E78.5 Hyperlipidemia, unspecified; F32.9 Major depressive disorder, single episode, unspecified; F41.9 Anxiety disorder, unspecified; F43.10 Post-traumatic stress disorder, unspecified; Z90.49 Acquired absence of other specified parts of digestive tract; Z98.890 Other specified postprocedural states; Z87.891 Personal history of nicotine dependence; Z79.899 Other long term (current) drug therapy; X58.XXXD Exposure to other specified factors, subsequent encounter ==

== ENCOUNTER → 2025-04-03 | Outpatient (CLI) | payer OTHER | LOC: WOUNDCARE 03:48 | PROVIDERS: ATTEND Nurse Practitioner Family | DX: S61.511D Laceration without foreign body of right wrist, subsequent encounter (principal); S81.811D Laceration without foreign body, right lower leg, subsequent encounter; S80.811A Abrasion, right lower leg, initial encounter; S80.211A Abrasion, right knee, initial encounter; E11.622 Type 2 diabetes mellitus with other skin ulcer; L97.812 Non-pressure chronic ulcer of other part of right lower leg with fat layer exposed; I87.2 Venous insufficiency (chronic) (peripheral); I11.0 Hypertensive heart disease with heart failure; I50.9 Heart failure, unspecified; J44.9 Chronic obstructive pulmonary disease, unspecified; I25.10 Atherosclerotic heart disease of native coronary artery without angina pectoris; E78.5 Hyperlipidemia, unspecified; R22.41 Localized swelling, mass and lump, right lower limb; M79.661 Pain in right lower leg; B35.3 Tinea pedis; F43.10 Post-traumatic stress disorder, unspecified; F32.9 Major depressive disorder, single episode, unspecified; F41.9 Anxiety disorder, unspecified; Z90.49 Acquired absence of other specified parts of digestive tract; Z98.890 Other specified postprocedural states; Z87.891 Personal history of nicotine dependence; Z79.899 Other long term (current) drug therapy; X58.XXXA Exposure to other specified factors, initial encounter; Y93.89 Activity, other specified; Y92.89 Other specified places as the place of occurrence of the external cause; Y99.8 Other external cause status ==